=== PATIENT | female | born 1940 | race Asian ===

== ENCOUNTER → 2017-05-11 | Outpatient (CLI) | payer OTHER, MEDICAID ==
[~2017-05-11] MED LIST: ALEN70TA48 PO; ASPI-556 PO; ATOR40TA28 PO; CALC-613 PO; FERR-89 PO; FLUT16H NASAL; FURO40 PO; LETR2.5T6 PO; LOSA25TA21 PO; METO50 PO; OMEP20 PO; TICA90TA PO; VITAD1000 PO
== END | disposition home or self-care (01) ==
LOC: RADMN 16:43
PROVIDERS: ATTEND Internal Medicine Critical Care Medicine
DX: J98.11 Atelectasis (principal); I70.0 Atherosclerosis of aorta; J98.4 Other disorders of lung
CPT/HCPCS: 71020

== ENCOUNTER → 2017-06-06 | Outpatient (CLI) | payer OTHER, MEDICAID | END | disposition home or self-care (01) | LOC: RESP 09:16 | PROVIDERS: ATTEND Internal Medicine Critical Care Medicine | DX: J44.1 Chronic obstructive pulmonary disease with (acute) exacerbation (principal) | CPT/HCPCS: 94060; 94729 ==

== ENCOUNTER 2017-10-28 11:40 | Emergency (ER) | payer MEDICARE, MEDICAID ==
[~2017-10-28] VITALS: Ht 157.5 cm; Wt 66.8 kg
[2017-10-28] MEDS ORDERED: CloNIDine HCL 0.2 MG TABLET PO ONE (13:00)
[2017-10-28 13:08] LABS: BASOPHILS % (AUTO) 0.4 % (0.0-2.0); EOSINOPHILS % (AUTO) 1.9 % (1.0-6.0); HEMATOCRIT 36.5 % (36-46); HEMOGLOBIN 12.4 g/dL (12.0-16.0); LYMPHOCYTES # (AUTO) 1.1 K/uL (1.0-4.8); LYMPHOCYTES % (AUTO) 27.8 % (22.0-44.0); MEAN CORPUSCULAR HEMOGLOBIN 32.8 pg (26.0-34.0); MEAN CORPUSCULAR VOLUME 96 fL (80-100); MONOCYTES # (AUTO) 0.5 K/uL (0.1-1.0); MONOCYTES % (AUTO) 12.7 % (2.0-9.0); NEUTROPHILS # (AUTO) 2.2 K/uL (1.8-7.7); NEUTROPHILS % (AUTO) 57.2 % (40.0-70.0); PLATELET COUNT (AUTO) 74 K/uL (150-450); RED BLOOD CELL COUNT(AUTO) 3.79 MIL/uL (4.00-5.20); RED CELL DISTRIBUTION WIDTH 13.3 % (11.5-14.5)
[2017-10-28 14:20] LABS: ANION GAP 10 mmol/L (8-16); CALCIUM, TOTAL 9.2 mg/dL (8.8-10.5); CARBON DIOXIDE 28 mmol/L (22-29); CHLORIDE 101 mmol/L (98-107); CREATININE 0.86 mg/dL (0.60-1.30); GLOMERULAR FILTR. RATE CALC > 60 mL/min (>60); GLUCOSE,RANDOM 112 mg/dL (70-110); POTASSIUM 3.3 mmol/L (3.5-5.1); SODIUM SERUM 139 mmol/L (136-145); UREA NITROGEN, BLOOD 13 mg/dL (7-18)
[2017-10-28 14:20] LABS: APPEARANCE,URINE CLEAR (CLEAR); BILIRUBIN,URINE NEGATIVE (NEGATIVE); GLUCOSE, URINE (UA) NEGATIVE (NEGATIVE); KETONES,URINE NEGATIVE (NEGATIVE); LEUKOCYTE ESTERASE ,URINE NEGATIVE (NEGATIVE); NITRATE,URINE NEGATIVE (NEGATIVE); OCCULT BLOOD,URINE NEGATIVE (NEGATIVE); PROTEIN,URINE NEGATIVE (NEGATIVE); UROBILINOGEN,URINE 0.2 mg/dL (<=1.0)
[2017-10-28 14:26] LABS: ALANINE AMINOTRANSFERASE 41 U/L (12-78); ALBUMIN 3.6 g/dL (3.4-5.0); ALKALINE PHOSPHATASE 85 U/L (46-116); ASPARTATE AMINOTRANSFERASE 40 U/L (15-37); BILIRUBIN,TOTAL 0.7 mg/dL (0.1-1.0); LIPASE 175 U/L (73-393); TOTAL PROTEIN, SERUM 7.6 g/dL (6.4-8.2)
[2017-10-28 14:30] VITALS: BP 144/68
[2017-10-28] MEDS ORDERED: HYDROCODONE/ACETAMINOPHEN 5-325 MG TABLET PO ONE (14:30)
[2017-10-28 14:36] LABS: BACTERIA,URINE None Seen /HPF (None Seen); RBC,URINE 0-2 /HPF (0-2); SQUAMOUS EPITHELIAL CELL,UR Rare /LPF (None Seen); WBC,URINE 0-2 /HPF (0-5)
[2017-10-28 14:41] LABS: INFLUENZA TYPE A NEGATIVE FOR TYPE A (NEGATIVE); INFLUENZA TYPE B NEGATIVE FOR TYPE B (NEGATIVE)
[2017-10-28] MEDS ORDERED: LEVOFLOXACIN 250 MG TABLET PO ONE (14:45)
[2017-10-28] MEDS ORDERED: POTASSIUM CHLORIDE 20 MEQ ER TABLET PO ONE (14:45)
== END 2017-10-28 15:45 | disposition home or self-care (01) ==
LOC: EMS 11:43
DX: S20.211A Contusion of right front wall of thorax, initial encounter (principal); J18.9 Pneumonia, unspecified organism; M54.2 Cervicalgia; I10 Essential (primary) hypertension; Z79.82 Long term (current) use of aspirin; W06.XXXA Fall from bed, initial encounter; Y93.89 Activity, other specified; Y92.89 Other specified places as the place of occurrence of the external cause; Y99.8 Other external cause status
CPT/HCPCS: 71101; 74176; 87804; 99285

== ENCOUNTER → 2017-11-02 | Outpatient (CLI) | payer MEDICARE ==
[~2017-11-02] VITALS: Ht 157.5 cm; Wt 66.0 kg
[2017-11-02 13:48] VITALS: BP 145/75
== END | disposition home or self-care (01) ==
LOC: SRCNTR 13:30
PROVIDERS: ATTEND Internal Medicine Critical Care Medicine
DX: J96.01 Acute respiratory failure with hypoxia (principal); I11.0 Hypertensive heart disease with heart failure; I50.9 Heart failure, unspecified; I25.10 Atherosclerotic heart disease of native coronary artery without angina pectoris; E78.5 Hyperlipidemia, unspecified; D25.9 Leiomyoma of uterus, unspecified; J18.9 Pneumonia, unspecified organism; I25.2 Old myocardial infarction; Z79.811 Long term (current) use of aromatase inhibitors; Z79.82 Long term (current) use of aspirin; Z85.3 Personal history of malignant neoplasm of breast
CPT/HCPCS: G0463

== ENCOUNTER → 2018-02-19 | Outpatient (CLI) | payer MEDICARE ==
[~2018-02-19] VITALS: Ht 157.5 cm; Wt 70.0 kg
[2018-02-19 14:13] VITALS: BP 145/69
== END | disposition home or self-care (01) ==
LOC: SRCNTR 13:39
PROVIDERS: ATTEND Internal Medicine Critical Care Medicine
DX: I11.0 Hypertensive heart disease with heart failure (principal); I50.33 Acute on chronic diastolic (congestive) heart failure; J96.01 Acute respiratory failure with hypoxia; J18.9 Pneumonia, unspecified organism; I25.10 Atherosclerotic heart disease of native coronary artery without angina pectoris; E78.5 Hyperlipidemia, unspecified; Z85.3 Personal history of malignant neoplasm of breast
CPT/HCPCS: G0463

== ENCOUNTER → 2018-04-26 | Outpatient (CLI) | payer MEDICARE, MEDICAID ==
[~2018-04-26] MED LIST changes: +LOSA25TA16 PO; -LOSA25TA21 PO
== END | disposition home or self-care (01) ==
LOC: RADMN 08:36
PROVIDERS: ATTEND Internal Medicine Critical Care Medicine
DX: J43.9 Emphysema, unspecified (principal); I27.21 Secondary pulmonary arterial hypertension; N28.1 Cyst of kidney, acquired; K80.20 Calculus of gallbladder without cholecystitis without obstruction; I51.7 Cardiomegaly; I25.10 Atherosclerotic heart disease of native coronary artery without angina pectoris; I70.0 Atherosclerosis of aorta
CPT/HCPCS: 71250; 72192; 74150

== ENCOUNTER → 2018-06-01 | Outpatient (CLI) | payer MEDICARE ==
[~2018-06-01] VITALS: Ht 157.5 cm; Wt 70.5 kg
[2018-06-01 14:41] VITALS: BP 194/73
== END | disposition home or self-care (01) ==
LOC: SRCNTR 13:27
PROVIDERS: ATTEND Internal Medicine Critical Care Medicine
DX: J96.01 Acute respiratory failure with hypoxia (principal); J18.9 Pneumonia, unspecified organism; I11.0 Hypertensive heart disease with heart failure; I50.9 Heart failure, unspecified; I25.10 Atherosclerotic heart disease of native coronary artery without angina pectoris; E78.5 Hyperlipidemia, unspecified; I25.2 Old myocardial infarction; Z85.3 Personal history of malignant neoplasm of breast
CPT/HCPCS: G0463

== ENCOUNTER → 2019-06-25 | Outpatient (CLI) | payer MEDICARE, MEDICAID ==
[~2019-06-25] MED LIST changes: -ALEN70TA48 PO; +ATOR10TA84 PO; -ATOR40TA28 PO; -CALC-613 PO; +CAND8TAB10 PO; +CHOL100018 PO; -FLUT16H NASAL; -LOSA25TA16 PO; -VITAD1000 PO
== END | disposition home or self-care (01) ==
LOC: RADPV 08:05
PROVIDERS: ATTEND Internal Medicine Nephrology
DX: R05 Cough (principal); I51.7 Cardiomegaly; I70.0 Atherosclerosis of aorta; I10 Essential (primary) hypertension; E78.00 Pure hypercholesterolemia, unspecified; J44.9 Chronic obstructive pulmonary disease, unspecified; Z90.89 Acquired absence of other organs; Z85.3 Personal history of malignant neoplasm of breast

== ENCOUNTER 2020-10-17 16:48 | Inpatient (IN) | payer MEDICARE, MEDICAID ==
[~2020-10-17] VITALS: Ht 160 cm; Wt 80.0 kg
[~2020-10-17 16:48] MED LIST changes: -LETR2.5T6 PO; +LETR2.5T7 PO
[2020-10-17 19:12] LABS: BASOPHILS % (AUTO) 0.7 % (0.0-2.0); EOSINOPHILS % (AUTO) 2.4 % (1.0-6.0); HEMATOCRIT 34.2 % (36-46); HEMOGLOBIN 11.2 g/dL (12.0-16.0); LYMPHOCYTES # (AUTO) 0.7 K/uL (1.0-4.8); MEAN CORPUSCULAR HEMOGLOBIN 32.4 pg (26.0-34.0); MEAN CORPUSCULAR HGB CONC 32.7 G/dL (31.0-37.0); MEAN CORPUSCULAR VOLUME 99 fL (80-100); MONOCYTES # (AUTO) 0.5 K/uL (0.1-1.0); MONOCYTES % (AUTO) 15.7 % (2.0-9.0); NEUTROPHILS # (AUTO) 2.2 K/uL (1.8-7.7); NEUTROPHILS % (AUTO) 62.2 % (40.0-70.0); RED BLOOD CELL COUNT(AUTO) 3.46 MIL/uL (4.00-5.20); RED CELL DISTRIBUTION WIDTH 15.5 % (11.5-14.5)
[2020-10-17] MEDS ORDERED: ACETAMINOPHEN 325 MG TABLET PO PRN ×2 (19:15→19:30)
[2020-10-17] MEDS ORDERED: ONDANSETRON HCL 4 MG/2 ML VIAL IVP PRN ×2 (19:15→19:30)
[2020-10-17] MEDS ORDERED: ASPIRIN 325 MG TABLET PO ONE (19:15)
[2020-10-17] MEDS ORDERED: FUROSEMIDE 40 MG/4 ML VIAL IVP ONE (19:15)
[2020-10-17] MEDS ORDERED: 0.9% SODIUM CHLORIDE 10 ML SYRINGE IVP PRN (19:15)
[2020-10-17 19:17] LABS: CALCIUM, TOTAL 9.4 mg/dL (8.8-10.5); CREATININE 2.04 mg/dL (0.60-1.30); POTASSIUM 4.2 mmol/L (3.5-5.1)
[2020-10-17 19:23] LABS: ALBUMIN 3.8 g/dL (3.4-5.0); BILIRUBIN,TOTAL 0.7 mg/dL (0.1-1.0); MAGNESIUM 2.3 mg/dL (1.80-2.40)
[2020-10-17] MEDS ORDERED: MAGNESIUM HYDROXIDE SUSPENSION 30 ML UDCUP PO PRN (19:30)
[2020-10-17] MEDS ORDERED: MORPHINE SULFATE 2 MG/ML SYRINGE IVP PRN (19:30)
[2020-10-17] MEDS ORDERED: BISACODYL 10 MG RECTAL RECTAL SUPPOSITORY PR PRN (19:30)
[2020-10-17] MEDS ORDERED: HYDROCODONE/ACETAMINOPHEN 5-325 MG TABLET PO PRN (19:30)
[2020-10-17] MEDS ORDERED: ZOLPIDEM TARTRATE 5 MG TABLET PO PRN (19:30)
[2020-10-17 19:31] LABS: PLATELET COUNT (AUTO) 50 K/uL (150-450)
[2020-10-17] MEDS: FUROSEMIDE 40 MG/4 ML VIAL IVP SCH (21:00)
[2020-10-17] MEDS: DOCUSATE SODIUM 100 MG CAPSULE PO SCH (21:11)
[2020-10-17] MEDS: METOPROLOL TARTRATE 50 MG TABLET PO SCH (21:11)
[2020-10-17 21:25] LABS: COVID AG,FIA SOURCE NASOPHARYNGEAL
[2020-10-17 23:04] VITALS: BP 170/92
[2020-10-17] MEDS ORDERED: INFLUENZA VIRUS VACCINE QVS 2020-21 (6MO+)/PF 60 MCG/0.5 ML SYRINGE IM ONE (23:45)
[2020-10-18] VITALS: BP 130/67
[2020-10-18 04:24] VITALS: BP 141/67
[2020-10-18 07:28] VITALS: BP 138/65
[2020-10-18] MEDS: LETROZOLE 2.5 MG TABLET PO SCH (08:55)
[2020-10-18] MEDS: CHOLECALCIFEROL (VIT D3) 1,000 UNITS [25 MCG] TABLET PO SCH (08:56)
[2020-10-18] MEDS: PANTOPRAZOLE SODIUM 40 MG DR TABLET PO SCH (08:56)
[2020-10-18] MEDS: DOCUSATE SODIUM 100 MG CAPSULE PO SCH ×2 (08:56→20:07)
[2020-10-18] MEDS: METOPROLOL TARTRATE 50 MG TABLET PO SCH ×2 (08:56→20:08)
[2020-10-18] MEDS: FUROSEMIDE 40 MG/4 ML VIAL IVP SCH ×2 (08:56→20:07)
[2020-10-18] MEDS: FERROUS SULFATE 325 MG EC TABLET PO SCH ×2 (08:57→17:53)
[2020-10-18] MEDS: ASPIRIN 81 MG DR TABLET PO SCH (08:57)
[2020-10-18] MEDS: TICAGRELOR 90 MG TABLET PO SCH (08:57)
[2020-10-18 11:28] VITALS: BP 117/59
[2020-10-18 15:28] VITALS: BP 126/54
[2020-10-18 20:15] VITALS: BP 133/63
[2020-10-19] VITALS (7 sets, daily range): BP systolic 132–156; BP diastolic 57–73
[2020-10-19 07:49] LABS: INR 1.1 (0.9-1.1); PROTHROMBIN TIME 11.6 SEC (9.4-11.6)
[2020-10-19] MEDS: METOPROLOL TARTRATE 50 MG TABLET PO SCH ×2 (07:53→20:21)
[2020-10-19] MEDS: FERROUS SULFATE 325 MG EC TABLET PO SCH ×2 (07:54→17:34)
[2020-10-19] MEDS: CHOLECALCIFEROL (VIT D3) 1,000 UNITS [25 MCG] TABLET PO SCH (07:54)
[2020-10-19] MEDS: LETROZOLE 2.5 MG TABLET PO SCH (07:54)
[2020-10-19] MEDS: PANTOPRAZOLE SODIUM 40 MG DR TABLET PO SCH (07:54)
[2020-10-19] MEDS: DOCUSATE SODIUM 100 MG CAPSULE PO SCH ×2 (07:54→20:19)
[2020-10-19 09:14] LABS: CALCIUM, TOTAL 9.5 mg/dL (8.8-10.5); CREATININE 1.66 mg/dL (0.60-1.30); POTASSIUM 3.9 mmol/L (3.5-5.1)
[2020-10-19 09:17] LABS: MAGNESIUM 2.4 mg/dL (1.80-2.40); PHOSPHORUS 3.4 mg/dL (2.5-4.9)
[2020-10-19 10:31] LABS: APPEARANCE,URINE CLEAR (CLEAR); BILIRUBIN,URINE NEGATIVE (NEGATIVE); GLUCOSE, URINE (UA) NEGATIVE (NEGATIVE); KETONES,URINE NEGATIVE (NEGATIVE); LEUKOCYTE ESTERASE ,URINE TRACE (NEGATIVE); NITRATE,URINE NEGATIVE (NEGATIVE); OCCULT BLOOD,URINE NEGATIVE (NEGATIVE); PH,URINE 5.5 (5.0-8.0); PROTEIN,URINE TRACE (NEGATIVE); UROBILINOGEN,URINE 0.2 mg/dL (<=1.0)
[2020-10-19 10:37] LABS: CREATININE,URINE RANDOM 114.4 mg/dL (30.0-125.0); PROTEIN,URINE RANDOM 36 mg/dL (0-11.9); SODIUM,URINE RANDOM 13 mmol/l (20-110); UREA NITROGEN,URINE RANDOM 804 mg/dL (350-1000)
[2020-10-19 10:46] LABS: BACTERIA,URINE None Seen /HPF (None Seen); RBC,URINE None Seen /HPF (0-2); SQUAMOUS EPITHELIAL CELL,UR Few /LPF (None Seen); WBC,URINE 0-2 /HPF (0-5)
[2020-10-19] MEDS: TICAGRELOR 90 MG TABLET PO SCH (13:33)
[2020-10-19] MEDS: FUROSEMIDE 40 MG/4 ML VIAL IVP SCH ×2 (13:33→20:19)
[2020-10-19] MEDS: ASPIRIN 81 MG DR TABLET PO SCH (13:33)
[2020-10-19] MEDS: ATORVASTATIN CALCIUM 20 MG TABLET PO SCH (18:09)
[2020-10-20] VITALS (11 sets, daily range): BP systolic 113–168; BP diastolic 52–82
[2020-10-20 06:00] LABS: BASOPHILS % (AUTO) 0.9 % (0.0-2.0); EOSINOPHILS % (AUTO) 2.2 % (1.0-6.0); HEMATOCRIT 32.9 % (36-46); HEMOGLOBIN 10.9 g/dL (12.0-16.0); LYMPHOCYTES # (AUTO) 0.7 K/uL (1.0-4.8); LYMPHOCYTES % (AUTO) 25.4 % (22.0-44.0); MEAN CORPUSCULAR HEMOGLOBIN 32.4 pg (26.0-34.0); MEAN CORPUSCULAR VOLUME 98 fL (80-100); MONOCYTES # (AUTO) 0.4 K/uL (0.1-1.0); MONOCYTES % (AUTO) 14.9 % (2.0-9.0); NEUTROPHILS # (AUTO) 1.6 K/uL (1.8-7.7); NEUTROPHILS % (AUTO) 56.6 % (40.0-70.0); PLATELET COUNT (AUTO) 42 K/uL (150-450); RED BLOOD CELL COUNT(AUTO) 3.35 MIL/uL (4.00-5.20); RED CELL DISTRIBUTION WIDTH 15.2 % (11.5-14.5)
[2020-10-20 06:13] LABS: ALBUMIN 3.3 g/dL (3.4-5.0); BILIRUBIN,TOTAL 0.8 mg/dL (0.1-1.0); CALCIUM, TOTAL 9.5 mg/dL (8.8-10.5); CREATININE 1.62 mg/dL (0.60-1.30); MAGNESIUM 2.3 mg/dL (1.80-2.40); PHOSPHORUS 3.1 mg/dL (2.5-4.9); POTASSIUM 3.4 mmol/L (3.5-5.1); TOTAL PROTEIN, SERUM 7.4 g/dL (6.4-8.2)
[2020-10-20] MEDS: PANTOPRAZOLE SODIUM 40 MG DR TABLET PO SCH (07:58)
[2020-10-20] MEDS: ATORVASTATIN CALCIUM 20 MG TABLET PO SCH (07:58)
[2020-10-20] MEDS: LETROZOLE 2.5 MG TABLET PO SCH (07:59)
[2020-10-20] MEDS: FUROSEMIDE 40 MG/4 ML VIAL IVP SCH ×2 (07:59→21:04)
[2020-10-20] MEDS: FERROUS SULFATE 325 MG EC TABLET PO SCH ×2 (07:59→17:19)
[2020-10-20] MEDS: DOCUSATE SODIUM 100 MG CAPSULE PO SCH ×2 (07:59→21:05)
[2020-10-20] MEDS: CHOLECALCIFEROL (VIT D3) 1,000 UNITS [25 MCG] TABLET PO SCH (07:59)
[2020-10-20] MEDS: ASPIRIN 81 MG DR TABLET PO SCH ×2 (07:59→08:04)
[2020-10-20] MEDS: METOPROLOL TARTRATE 50 MG TABLET PO SCH ×2 (08:01→21:05)
[2020-10-20] MEDS ORDERED: POTASSIUM CHLORIDE 20 MEQ ER TABLET PO ONE (10:45)
[2020-10-20] MEDS ORDERED: SODIUM CHLORIDE 0.9% 1,000 ML ONE (12:33)
[2020-10-21] VITALS (10 sets, daily range): BP systolic 108–153; BP diastolic 50–70
[2020-10-21 05:41] LABS: BASOPHILS % (AUTO) 0.6 % (0.0-2.0); EOSINOPHILS % (AUTO) 2.7 % (1.0-6.0); HEMATOCRIT 30.9 % (36-46); HEMOGLOBIN 10.3 g/dL (12.0-16.0); LYMPHOCYTES # (AUTO) 0.7 K/uL (1.0-4.8); LYMPHOCYTES % (AUTO) 27.5 % (22.0-44.0); MEAN CORPUSCULAR HEMOGLOBIN 32.6 pg (26.0-34.0); MEAN CORPUSCULAR HGB CONC 33.3 G/dL (31.0-37.0); MEAN CORPUSCULAR VOLUME 98 fL (80-100); MONOCYTES # (AUTO) 0.5 K/uL (0.1-1.0); MONOCYTES % (AUTO) 17.5 % (2.0-9.0); NEUTROPHILS # (AUTO) 1.3 K/uL (1.8-7.7); NEUTROPHILS % (AUTO) 51.7 % (40.0-70.0); PLATELET COUNT (AUTO) 48 K/uL (150-450); RED BLOOD CELL COUNT(AUTO) 3.16 MIL/uL (4.00-5.20); RED CELL DISTRIBUTION WIDTH 15.7 % (11.5-14.5)
[2020-10-21 05:50] LABS: CALCIUM, TOTAL 9.1 mg/dL (8.8-10.5); CREATININE 1.49 mg/dL (0.60-1.30); POTASSIUM 3.1 mmol/L (3.5-5.1)
[2020-10-21] MEDS: METOPROLOL TARTRATE 50 MG TABLET PO SCH ×3 (09:00→20:48)
[2020-10-21] MEDS: DOCUSATE SODIUM 100 MG CAPSULE PO SCH ×2 (09:03→20:48)
[2020-10-21] MEDS: ATORVASTATIN CALCIUM 20 MG TABLET PO SCH (09:03)
[2020-10-21] MEDS: CHOLECALCIFEROL (VIT D3) 1,000 UNITS [25 MCG] TABLET PO SCH (09:03)
[2020-10-21] MEDS: ASPIRIN 81 MG DR TABLET PO SCH (09:03)
[2020-10-21] MEDS: PANTOPRAZOLE SODIUM 40 MG DR TABLET PO SCH (09:03)
[2020-10-21] MEDS: FUROSEMIDE 40 MG/4 ML VIAL IVP SCH ×2 (09:03→20:48)
[2020-10-21] MEDS: LETROZOLE 2.5 MG TABLET PO SCH (09:04)
[2020-10-21] MEDS: FERROUS SULFATE 325 MG EC TABLET PO SCH ×2 (09:04→17:58)
[2020-10-21] MEDS ORDERED: POTASSIUM CHLORIDE 20 MEQ ER TABLET PO ONE (09:30)
[2020-10-21] MEDS ORDERED: SODIUM CHLORIDE 0.9% 250 ML IV ONE (11:59)
[2020-10-21 15:33] LABS: SPECIMENTYPE,BODY FLUID THORACENTESIS
[2020-10-21 16:53] LABS: APPEARANCE,UNSPUN,BODY FLUID CLOUDY (CLEAR)
[2020-10-21 16:54] LABS: APPEARANCE,SPUN,BODY FLUID CLEAR (CLEAR); BASOPHILS,BODY FLUID 0 %; COLOR,BODY FLUID ORANGE (LT YELLOW); EOSINOPHILS,BF (ANAL) 0 %; LYMPHOCYTES,BODY FLUID 78 %; MONOCYTES,BODY FLUID 0 %; NEUTROPHILS,BODY FLUID 7 %; TOTAL VOLUME,BODY FLUID 650 mL; WBC, BODY FLUID 62 /cu. mm.
[2020-10-21 16:55] LABS: OTHER CELLS,BODY FLUID 15; PH, BODY FLUID 8
[2020-10-22] VITALS (7 sets, daily range): BP systolic 113–159; BP diastolic 49–76
[2020-10-22 05:46] LABS: BASOPHILS % (AUTO) 0.6 % (0.0-2.0); EOSINOPHILS % (AUTO) 2.7 % (1.0-6.0); HEMATOCRIT 28.4 % (36-46); HEMOGLOBIN 9.6 g/dL (12.0-16.0); LYMPHOCYTES # (AUTO) 0.8 K/uL (1.0-4.8); LYMPHOCYTES % (AUTO) 22.3 % (22.0-44.0); MEAN CORPUSCULAR HGB CONC 33.6 G/dL (31.0-37.0); MEAN CORPUSCULAR VOLUME 98 fL (80-100); MONOCYTES # (AUTO) 0.5 K/uL (0.1-1.0); MONOCYTES % (AUTO) 15.5 % (2.0-9.0); NEUTROPHILS % (AUTO) 58.9 % (40.0-70.0); PLATELET COUNT (AUTO) 46 K/uL (150-450); RED CELL DISTRIBUTION WIDTH 15.4 % (11.5-14.5)
[2020-10-22 06:02] LABS: CALCIUM, TOTAL 9.1 mg/dL (8.8-10.5); CREATININE 1.46 mg/dL (0.60-1.30); POTASSIUM 3.2 mmol/L (3.5-5.1)
[2020-10-22 06:13] LABS: MAGNESIUM 1.6 mg/dL (1.80-2.40); PHOSPHORUS 2.7 mg/dL (2.5-4.9)
[2020-10-22] MEDS: DOCUSATE SODIUM 100 MG CAPSULE PO SCH ×2 (08:03→20:28)
[2020-10-22] MEDS: FUROSEMIDE 40 MG/4 ML VIAL IVP SCH ×2 (08:04→20:29)
[2020-10-22] MEDS: ASPIRIN 81 MG DR TABLET PO SCH (08:04)
[2020-10-22] MEDS: FERROUS SULFATE 325 MG EC TABLET PO SCH ×2 (08:04→17:56)
[2020-10-22] MEDS: ATORVASTATIN CALCIUM 20 MG TABLET PO SCH (08:05)
[2020-10-22] MEDS: CHOLECALCIFEROL (VIT D3) 1,000 UNITS [25 MCG] TABLET PO SCH (08:05)
[2020-10-22] MEDS: PANTOPRAZOLE SODIUM 40 MG DR TABLET PO SCH (08:05)
[2020-10-22] MEDS: METOPROLOL TARTRATE 50 MG TABLET PO SCH ×2 (09:00→20:29)
[2020-10-22] MEDS: LETROZOLE 2.5 MG TABLET PO SCH (10:13)
[2020-10-22] MEDS ORDERED: POTASSIUM CHLORIDE 10 MEQ ER TABLET PO ONE (11:30)
[2020-10-22] MEDS: TICAGRELOR 90 MG TABLET PO SCH (12:29)
[2020-10-23 04:00] VITALS: BP 122/71
[2020-10-23 05:46] LABS: BASOPHILS % (AUTO) 0.6 % (0.0-2.0); HEMATOCRIT 29.9 % (36-46); HEMOGLOBIN 9.8 g/dL (12.0-16.0); LYMPHOCYTES # (AUTO) 0.8 K/uL (1.0-4.8); MEAN CORPUSCULAR HEMOGLOBIN 32.4 pg (26.0-34.0); MEAN CORPUSCULAR HGB CONC 32.8 G/dL (31.0-37.0); MEAN CORPUSCULAR VOLUME 99 fL (80-100); MONOCYTES # (AUTO) 0.6 K/uL (0.1-1.0); MONOCYTES % (AUTO) 16.5 % (2.0-9.0); NEUTROPHILS % (AUTO) 56.9 % (40.0-70.0); PLATELET COUNT (AUTO) 51 K/uL (150-450); RED BLOOD CELL COUNT(AUTO) 3.04 MIL/uL (4.00-5.20); RED CELL DISTRIBUTION WIDTH 15.4 % (11.5-14.5)
[2020-10-23 06:39] LABS: ALBUMIN 3.3 g/dL (3.4-5.0); BILIRUBIN,TOTAL 1.1 mg/dL (0.1-1.0); CREATININE 1.3 mg/dL (0.60-1.30); POTASSIUM 3.6 mmol/L (3.5-5.1); TOTAL PROTEIN, SERUM 7.1 g/dL (6.4-8.2)
[2020-10-23 07:18] VITALS: BP 136/64
[2020-10-23] MEDS: ASPIRIN 81 MG DR TABLET PO SCH (07:56)
[2020-10-23] MEDS: PANTOPRAZOLE SODIUM 40 MG DR TABLET PO SCH (07:57)
[2020-10-23] MEDS: METOPROLOL TARTRATE 50 MG TABLET PO SCH (07:57)
[2020-10-23] MEDS: ATORVASTATIN CALCIUM 20 MG TABLET PO SCH (07:57)
[2020-10-23] MEDS: DOCUSATE SODIUM 100 MG CAPSULE PO SCH (07:57)
[2020-10-23] MEDS: TICAGRELOR 90 MG TABLET PO SCH (07:57)
[2020-10-23] MEDS: CHOLECALCIFEROL (VIT D3) 1,000 UNITS [25 MCG] TABLET PO SCH (07:57)
[2020-10-23] MEDS: FERROUS SULFATE 325 MG EC TABLET PO SCH ×2 (07:57→18:00)
[2020-10-23] MEDS: FUROSEMIDE 40 MG/4 ML VIAL IVP SCH (07:58)
[2020-10-23] MEDS: LETROZOLE 2.5 MG TABLET PO SCH (08:04)
[2020-10-23 11:15] VITALS: BP 148/68
[2020-10-23] MEDS ORDERED: FURO40 PO (12:28)
[2020-10-23] MEDS ORDERED: ATOR20TA86 PO (12:37)
[2020-10-23] MEDS ORDERED: BISA10SU11 PR (12:39)
[2020-10-23] MEDS ORDERED: ACET-2247 PO (12:39)
[2020-10-23] MEDS ORDERED: HYDR-4723 PO (12:40)
[2020-10-23] MEDS ORDERED: MOM30 PO (12:44)
[2020-10-23] MEDS ORDERED: MORP1AMP6 IVP (12:46)
[2020-10-23 16:27] VITALS: BP 145/70
== END 2020-10-23 20:23 | DRG 291 ==
LOC: EMS 17:22 → 5S 21:49
PROVIDERS: ADMIT Internal Medicine; ATTEND Internal Medicine
PROC: 30233R1 Transfusion of Nonautologous Platelets into Peripheral Vein, Percutaneous Approach (ICD-10-PCS; 2020-10-20)
PROC: 30233N1 Transfusion of Nonautologous Red Blood Cells into Peripheral Vein, Percutaneous Approach (ICD-10-PCS; principal; 2020-10-21)
PROC: 0W993ZZ Drainage of Right Pleural Cavity, Percutaneous Approach (ICD-10-PCS; 2020-10-21)
DX: I13.0 Hypertensive heart and chronic kidney disease with heart failure and stage 1 through stage 4 chronic kidney disease, or unspecified chronic kidney disease (principal); I50.33 Acute on chronic diastolic (congestive) heart failure; N17.9 Acute kidney failure, unspecified; D61.818 Other pancytopenia; J91.8 Pleural effusion in other conditions classified elsewhere; I25.10 Atherosclerotic heart disease of native coronary artery without angina pectoris; J44.9 Chronic obstructive pulmonary disease, unspecified; K21.9 Gastro-esophageal reflux disease without esophagitis; E66.9 Obesity, unspecified; E11.22 Type 2 diabetes mellitus with diabetic chronic kidney disease; N18.9 Chronic kidney disease, unspecified; I27.20 Pulmonary hypertension, unspecified; Z20.822 Contact with and (suspected) exposure to COVID-19; I25.2 Old myocardial infarction; E87.6 Hypokalemia; Z85.3 Personal history of malignant neoplasm of breast; E78.5 Hyperlipidemia, unspecified; I25.5 Ischemic cardiomyopathy; D69.6 Thrombocytopenia, unspecified; M79.89 Other specified soft tissue disorders; Z68.31 Body mass index [BMI] 31.0-31.9, adult; Z79.811 Long term (current) use of aromatase inhibitors; Z86.74 Personal history of sudden cardiac arrest; Z90.12 Acquired absence of left breast and nipple; Z79.82 Long term (current) use of aspirin; Z79.899 Other long term (current) drug therapy; Z87.01 Personal history of pneumonia (recurrent)
CPT/HCPCS: 32555; 71250; 76770; 76942; 82465; 82570; 82945; 83615; 83735; 83986; 84100; 84156; 84157; 84300; 84540; 86850; 86900; 86901; 87015; 87070; 87101; 87205; 87206; 87426; 89051; 93005; 93306; 93971; 97116; 97162; 97166; 97530; 97535; 99285; J1940; J7030; J7050; P9035; 36415-L1; 36415-TC; 71045-TC

== ENCOUNTER 2020-10-30 11:55 | Inpatient (IN) | payer MEDICARE, MEDICAID ==
[~2020-10-30] VITALS: Ht 160 cm; Wt 74.5 kg
[~2020-10-30 11:55] MED LIST changes: +ACET-2247 PO; -ATOR10TA84 PO; +ATOR20TA86 PO; +BISA10SU11 PR; -CAND8TAB10 PO; +HYDR-4723 PO; +MOM30 PO
[2020-10-30 12:54] LABS: COVID AG,FIA SOURCE NASOPHARYNGEAL
[2020-10-30 12:56] LABS: BASOPHILS % (AUTO) 0.7 % (0.0-2.0); EOSINOPHILS % (AUTO) 3.2 % (1.0-6.0); HEMOGLOBIN 11.1 g/dL (12.0-16.0); LYMPHOCYTES # (AUTO) 0.6 K/uL (1.0-4.8); LYMPHOCYTES % (AUTO) 12.9 % (22.0-44.0); MEAN CORPUSCULAR HEMOGLOBIN 32.4 pg (26.0-34.0); MEAN CORPUSCULAR HGB CONC 32.8 G/dL (31.0-37.0); MEAN CORPUSCULAR VOLUME 99 fL (80-100); MONOCYTES # (AUTO) 0.8 K/uL (0.1-1.0); MONOCYTES % (AUTO) 17.3 % (2.0-9.0); NEUTROPHILS % (AUTO) 65.9 % (40.0-70.0); RED BLOOD CELL COUNT(AUTO) 3.44 MIL/uL (4.00-5.20); RED CELL DISTRIBUTION WIDTH 15.7 % (11.5-14.5)
[2020-10-30 13:05] LABS: CALCIUM, TOTAL 9.3 mg/dL (8.8-10.5); CREATININE 1.31 mg/dL (0.60-1.30); POTASSIUM 3.3 mmol/L (3.5-5.1)
[2020-10-30 13:11] LABS: INR 1.1 (0.9-1.1); PROTHROMBIN TIME 11.9 SEC (9.4-11.6)
[2020-10-30 13:17] LABS: LACTIC ACID 1.5 mmol/L (0.4-2.0)
[2020-10-30 13:19] LABS: ALBUMIN 3.4 g/dL (3.4-5.0); BILIRUBIN,TOTAL 0.8 mg/dL (0.1-1.0); TOTAL PROTEIN, SERUM 7.6 g/dL (6.4-8.2)
[2020-10-30 13:31] LABS: PLATELET COUNT (AUTO) 62 K/uL (150-450)
[2020-10-30 15:23] LABS: APPEARANCE,URINE CLEAR (CLEAR); BILIRUBIN,URINE NEGATIVE (NEGATIVE); GLUCOSE, URINE (UA) NEGATIVE (NEGATIVE); KETONES,URINE NEGATIVE (NEGATIVE); LEUKOCYTE ESTERASE ,URINE NEGATIVE (NEGATIVE); NITRATE,URINE NEGATIVE (NEGATIVE); OCCULT BLOOD,URINE NEGATIVE (NEGATIVE); PROTEIN,URINE NEGATIVE (NEGATIVE); UROBILINOGEN,URINE 0.2 mg/dL (<=1.0)
[2020-10-30] MEDS ORDERED: BISACODYL 10 MG RECTAL RECTAL SUPPOSITORY PR PRN (16:15)
[2020-10-30] MEDS ORDERED: ZOLPIDEM TARTRATE 5 MG TABLET PO PRN (16:15)
[2020-10-30] MEDS ORDERED: ONDANSETRON HCL 4 MG/2 ML VIAL IVP PRN (16:15)
[2020-10-30] MEDS ORDERED: MORPHINE SULFATE 2 MG/ML SYRINGE IVP PRN (16:15)
[2020-10-30] MEDS ORDERED: MAGNESIUM HYDROXIDE SUSPENSION 30 ML UDCUP PO PRN (16:15)
[2020-10-30] MEDS ORDERED: HYDROCODONE/ACETAMINOPHEN 5-325 MG TABLET PO PRN (16:15)
[2020-10-30 16:55] LABS: BACTERIA,URINE None Seen /HPF (None Seen); RBC,URINE None Seen /HPF (0-2); SQUAMOUS EPITHELIAL CELL,UR None Seen /LPF (None Seen); WBC,URINE 0-2 /HPF (0-5)
[2020-10-30] MEDS: DOCUSATE SODIUM 100 MG CAPSULE PO SCH (19:20)
[2020-10-30] MEDS: METOPROLOL TARTRATE 50 MG TABLET PO SCH (19:20)
[2020-10-30 20:03] VITALS: BP 166/94
[2020-10-30] MEDS: FUROSEMIDE 40 MG TABLET PO SCH (20:33)
[2020-10-30] MEDS: HEPARIN SODIUM,PORCINE 5,000 UNITS/ML VIAL SQ SCH (23:01)
[2020-10-30 23:46] VITALS: BP 120/51
[2020-10-31 04:47] VITALS: BP 140/65
[2020-10-31 08:00] VITALS: BP 137/53
[2020-10-31] MEDS: HEPARIN SODIUM,PORCINE 5,000 UNITS/ML VIAL SQ SCH ×3 (08:00→23:10)
[2020-10-31] MEDS: ASPIRIN 81 MG DR TABLET PO SCH (08:41)
[2020-10-31] MEDS: FERROUS SULFATE 325 MG EC TABLET PO SCH ×2 (08:41→17:25)
[2020-10-31] MEDS: CHOLECALCIFEROL (VIT D3) 1,000 UNITS [25 MCG] TABLET PO SCH (08:41)
[2020-10-31] MEDS: ATORVASTATIN CALCIUM 20 MG TABLET PO SCH (08:41)
[2020-10-31] MEDS: METOPROLOL TARTRATE 50 MG TABLET PO SCH ×2 (08:41→19:42)
[2020-10-31] MEDS: PANTOPRAZOLE SODIUM 40 MG DR TABLET PO SCH (08:42)
[2020-10-31] MEDS: FUROSEMIDE 40 MG TABLET PO SCH ×2 (08:42→19:42)
[2020-10-31] MEDS: OMEPRAZOLE 20 MG CAPSULE PO SCH (08:42)
[2020-10-31] MEDS: LETROZOLE 2.5 MG TABLET PO SCH (08:44)
[2020-10-31] MEDS: DOCUSATE SODIUM 100 MG CAPSULE PO SCH ×2 (08:44→19:42)
[2020-10-31 11:03] VITALS: BP 130/64
[2020-10-31 15:53] VITALS: BP 143/66
[2020-10-31 19:36] VITALS: BP 144/75
[2020-10-31] MEDS: FUROSEMIDE 40 MG/4 ML VIAL IVP SCH (21:23)
[2020-11-01] VITALS (7 sets, daily range): BP systolic 104–150; BP diastolic 51–70
[2020-11-01 06:37] LABS: CALCIUM, TOTAL 9.1 mg/dL (8.8-10.5); CREATININE 1.12 mg/dL (0.60-1.30); POTASSIUM 3.2 mmol/L (3.5-5.1)
[2020-11-01 07:55] LABS: BASOPHILS % (AUTO) 0.4 % (0.0-2.0); EOSINOPHILS % (AUTO) 2.3 % (1.0-6.0); HEMATOCRIT 31.8 % (36-46); HEMOGLOBIN 10.5 g/dL (12.0-16.0); LYMPHOCYTES # (AUTO) 0.7 K/uL (1.0-4.8); LYMPHOCYTES % (AUTO) 14.8 % (22.0-44.0); MEAN CORPUSCULAR HEMOGLOBIN 32.6 pg (26.0-34.0); MEAN CORPUSCULAR HGB CONC 32.9 G/dL (31.0-37.0); MEAN CORPUSCULAR VOLUME 99 fL (80-100); MONOCYTES % (AUTO) 20.3 % (2.0-9.0); NEUTROPHILS % (AUTO) 62.2 % (40.0-70.0); PLATELET COUNT (AUTO) 50 K/uL (150-450); RED BLOOD CELL COUNT(AUTO) 3.21 MIL/uL (4.00-5.20); RED CELL DISTRIBUTION WIDTH 15.4 % (11.5-14.5)
[2020-11-01] MEDS: HEPARIN SODIUM,PORCINE 5,000 UNITS/ML VIAL SQ SCH ×3 (08:00→23:50)
[2020-11-01] MEDS: ASPIRIN 81 MG DR TABLET PO SCH (09:00)
[2020-11-01] MEDS: ATORVASTATIN CALCIUM 20 MG TABLET PO SCH (09:25)
[2020-11-01] MEDS: PANTOPRAZOLE SODIUM 40 MG DR TABLET PO SCH (09:25)
[2020-11-01] MEDS: FUROSEMIDE 40 MG/4 ML VIAL IVP SCH ×3 (09:25→23:52)
[2020-11-01] MEDS: OMEPRAZOLE 20 MG CAPSULE PO SCH (09:25)
[2020-11-01] MEDS: FERROUS SULFATE 325 MG EC TABLET PO SCH ×2 (09:25→17:12)
[2020-11-01] MEDS: METOPROLOL TARTRATE 50 MG TABLET PO SCH ×2 (09:26→19:33)
[2020-11-01] MEDS: LETROZOLE 2.5 MG TABLET PO SCH (09:26)
[2020-11-01] MEDS: CHOLECALCIFEROL (VIT D3) 1,000 UNITS [25 MCG] TABLET PO SCH (09:26)
[2020-11-01] MEDS: DOCUSATE SODIUM 100 MG CAPSULE PO SCH ×2 (09:26→19:33)
[2020-11-01] MEDS: ACETAMINOPHEN 325 MG TABLET PO PRN ×2 (10:49→16:20)
[2020-11-01] MEDS ORDERED: POTASSIUM CHLORIDE 20 MEQ ER TABLET PO ONE (11:00)
[2020-11-02] VITALS (12 sets, daily range): BP systolic 92–160; BP diastolic 50–89
[2020-11-02 07:19] LABS: BASOPHILS % (AUTO) 0.5 % (0.0-2.0); EOSINOPHILS % (AUTO) 1.8 % (1.0-6.0); HEMATOCRIT 31.2 % (36-46); HEMOGLOBIN 10.3 g/dL (12.0-16.0); LYMPHOCYTES # (AUTO) 0.6 K/uL (1.0-4.8); LYMPHOCYTES % (AUTO) 11.8 % (22.0-44.0); MEAN CORPUSCULAR HEMOGLOBIN 32.7 pg (26.0-34.0); MEAN CORPUSCULAR HGB CONC 33.1 G/dL (31.0-37.0); MEAN CORPUSCULAR VOLUME 99 fL (80-100); MONOCYTES # (AUTO) 0.9 K/uL (0.1-1.0); MONOCYTES % (AUTO) 17.2 % (2.0-9.0); NEUTROPHILS # (AUTO) 3.6 K/uL (1.8-7.7); NEUTROPHILS % (AUTO) 68.7 % (40.0-70.0); PLATELET COUNT (AUTO) 45 K/uL (150-450); RED BLOOD CELL COUNT(AUTO) 3.16 MIL/uL (4.00-5.20); RED CELL DISTRIBUTION WIDTH 15.2 % (11.5-14.5)
[2020-11-02 07:32] LABS: CALCIUM, TOTAL 9.1 mg/dL (8.8-10.5); CREATININE 1.15 mg/dL (0.60-1.30); POTASSIUM 3.6 mmol/L (3.5-5.1)
[2020-11-02] MEDS: HEPARIN SODIUM,PORCINE 5,000 UNITS/ML VIAL SQ SCH ×2 (08:00→16:00)
[2020-11-02] MEDS: ASPIRIN 81 MG DR TABLET PO SCH (09:00)
[2020-11-02] MEDS: LETROZOLE 2.5 MG TABLET PO SCH (09:00)
[2020-11-02] MEDS: FERROUS SULFATE 325 MG EC TABLET PO SCH ×2 (09:11→18:04)
[2020-11-02] MEDS: METOPROLOL TARTRATE 50 MG TABLET PO SCH ×2 (09:11→20:35)
[2020-11-02] MEDS: ATORVASTATIN CALCIUM 20 MG TABLET PO SCH (09:11)
[2020-11-02] MEDS: OMEPRAZOLE 20 MG CAPSULE PO SCH (09:11)
[2020-11-02] MEDS: DOCUSATE SODIUM 100 MG CAPSULE PO SCH ×2 (09:11→20:38)
[2020-11-02] MEDS: FUROSEMIDE 40 MG/4 ML VIAL IVP SCH ×2 (09:12→20:34)
[2020-11-02] MEDS: ACETAMINOPHEN 325 MG TABLET PO PRN ×2 (09:14→14:48)
[2020-11-02] MEDS: CHOLECALCIFEROL (VIT D3) 1,000 UNITS [25 MCG] TABLET PO SCH (09:14)
[2020-11-02] MEDS ORDERED: SODIUM CHLORIDE 0.9% 250 ML IV ONE (11:01)
[2020-11-03] MEDS: HEPARIN SODIUM,PORCINE 5,000 UNITS/ML VIAL SQ SCH ×3 (00:12→17:21)
[2020-11-03 00:15] VITALS: BP 106/45
[2020-11-03 04:24] VITALS: BP 98/45
[2020-11-03 07:36] VITALS: BP 116/48
[2020-11-03] MEDS: ASPIRIN 81 MG DR TABLET PO SCH (08:11)
[2020-11-03] MEDS: CHOLECALCIFEROL (VIT D3) 1,000 UNITS [25 MCG] TABLET PO SCH (08:11)
[2020-11-03] MEDS: OMEPRAZOLE 20 MG CAPSULE PO SCH (08:11)
[2020-11-03] MEDS: DOCUSATE SODIUM 100 MG CAPSULE PO SCH ×2 (08:12→20:21)
[2020-11-03] MEDS: ATORVASTATIN CALCIUM 20 MG TABLET PO SCH (08:12)
[2020-11-03] MEDS: FERROUS SULFATE 325 MG EC TABLET PO SCH ×2 (08:12→17:21)
[2020-11-03] MEDS: LETROZOLE 2.5 MG TABLET PO SCH ×2 (08:13→09:00)
[2020-11-03] MEDS: METOPROLOL TARTRATE 50 MG TABLET PO SCH ×2 (09:00→20:19)
[2020-11-03] MEDS: FUROSEMIDE 40 MG/4 ML VIAL IVP SCH ×2 (09:00→20:19)
[2020-11-03 11:16] VITALS: BP 107/46
[2020-11-03 15:31] VITALS: BP 107/43
[2020-11-03 19:46] VITALS: BP 116/52
[2020-11-04] VITALS (7 sets, daily range): BP systolic 107–137; BP diastolic 48–66
[2020-11-04] MEDS: HEPARIN SODIUM,PORCINE 5,000 UNITS/ML VIAL SQ SCH (00:29)
[2020-11-04] MEDS: ACETAMINOPHEN 325 MG TABLET PO PRN (02:37)
[2020-11-04 06:16] LABS: BASOPHILS % (AUTO) 0.6 % (0.0-2.0); EOSINOPHILS % (AUTO) 3.6 % (1.0-6.0); HEMATOCRIT 30.6 % (36-46); HEMOGLOBIN 9.9 g/dL (12.0-16.0); LYMPHOCYTES # (AUTO) 0.5 K/uL (1.0-4.8); LYMPHOCYTES % (AUTO) 17.2 % (22.0-44.0); MEAN CORPUSCULAR HEMOGLOBIN 32.2 pg (26.0-34.0); MEAN CORPUSCULAR HGB CONC 32.4 G/dL (31.0-37.0); MEAN CORPUSCULAR VOLUME 99 fL (80-100); MONOCYTES # (AUTO) 0.6 K/uL (0.1-1.0); MONOCYTES % (AUTO) 18.2 % (2.0-9.0); NEUTROPHILS # (AUTO) 1.9 K/uL (1.8-7.7); NEUTROPHILS % (AUTO) 60.4 % (40.0-70.0); PLATELET COUNT (AUTO) 43 K/uL (150-450); RED BLOOD CELL COUNT(AUTO) 3.08 MIL/uL (4.00-5.20); RED CELL DISTRIBUTION WIDTH 15.1 % (11.5-14.5)
[2020-11-04 06:44] LABS: ALBUMIN 2.8 g/dL (3.4-5.0); BILIRUBIN,TOTAL 0.6 mg/dL (0.1-1.0); CALCIUM, TOTAL 9.1 mg/dL (8.8-10.5); CREATININE 1.22 mg/dL (0.60-1.30); MAGNESIUM 2.3 mg/dL (1.80-2.40); POTASSIUM 3.8 mmol/L (3.5-5.1)
[2020-11-04] MEDS: FERROUS SULFATE 325 MG EC TABLET PO SCH ×2 (08:00→18:10)
[2020-11-04] MEDS: CHOLECALCIFEROL (VIT D3) 1,000 UNITS [25 MCG] TABLET PO SCH (09:00)
[2020-11-04] MEDS: ASPIRIN 81 MG DR TABLET PO SCH (09:00)
[2020-11-04] MEDS: DOCUSATE SODIUM 100 MG CAPSULE PO SCH ×2 (09:00→21:44)
[2020-11-04] MEDS: LETROZOLE 2.5 MG TABLET PO SCH (09:00)
[2020-11-04] MEDS: FUROSEMIDE 40 MG/4 ML VIAL IVP SCH ×2 (09:00→21:29)
[2020-11-04] MEDS: OMEPRAZOLE 20 MG CAPSULE PO SCH (09:00)
[2020-11-04] MEDS: ATORVASTATIN CALCIUM 20 MG TABLET PO SCH (09:00)
[2020-11-04] MEDS: METOPROLOL TARTRATE 50 MG TABLET PO SCH ×2 (09:00→21:45)
[2020-11-04] MEDS ORDERED: TICAGRELOR 90 MG TABLET PO SCH (11:30)
[2020-11-04] MEDS: TICAGRELOR 60 MG TABLET PO SCH ×2 (16:17→21:45)
[2020-11-05 03:41] VITALS: BP 141/61
[2020-11-05 07:40] VITALS: BP 138/58
[2020-11-05] MEDS: METOPROLOL TARTRATE 50 MG TABLET PO SCH (08:24)
[2020-11-05] MEDS: OMEPRAZOLE 20 MG CAPSULE PO SCH (08:24)
[2020-11-05] MEDS: ATORVASTATIN CALCIUM 20 MG TABLET PO SCH (08:25)
[2020-11-05] MEDS: FERROUS SULFATE 325 MG EC TABLET PO SCH ×2 (08:25→08:26)
[2020-11-05] MEDS: DOCUSATE SODIUM 100 MG CAPSULE PO SCH (08:25)
[2020-11-05] MEDS: ASPIRIN 81 MG DR TABLET PO SCH (08:25)
[2020-11-05] MEDS: FUROSEMIDE 40 MG/4 ML VIAL IVP SCH (08:25)
[2020-11-05] MEDS: CHOLECALCIFEROL (VIT D3) 1,000 UNITS [25 MCG] TABLET PO SCH (08:25)
[2020-11-05] MEDS: TICAGRELOR 60 MG TABLET PO SCH (08:25)
[2020-11-05] MEDS: LETROZOLE 2.5 MG TABLET PO SCH (08:26)
[2020-11-05 11:28] VITALS: BP 119/51
[2020-11-06 03:28] LABS: GLUCOMETER DEV NAME(LOC) 5S.1; GLUCOSE,POINT OF CARE 166 MG/DL (70-110)
== END 2020-11-05 17:15 | DRG 291 ==
LOC: EMS 11:55 → 5S 16:06
PROVIDERS: ADMIT Internal Medicine; ATTEND Internal Medicine
PROC: 0W993ZZ Drainage of Right Pleural Cavity, Percutaneous Approach (ICD-10-PCS; principal; 2020-11-02)
PROC: 30233Q1 Transfusion of Nonautologous White Cells into Peripheral Vein, Percutaneous Approach (ICD-10-PCS; 2020-11-02)
DX: I13.0 Hypertensive heart and chronic kidney disease with heart failure and stage 1 through stage 4 chronic kidney disease, or unspecified chronic kidney disease (principal); I50.31 Acute diastolic (congestive) heart failure; J96.01 Acute respiratory failure with hypoxia; E44.0 Moderate protein-calorie malnutrition; D61.818 Other pancytopenia; I27.20 Pulmonary hypertension, unspecified; I25.10 Atherosclerotic heart disease of native coronary artery without angina pectoris; K21.9 Gastro-esophageal reflux disease without esophagitis; D69.6 Thrombocytopenia, unspecified; I07.1 Rheumatic tricuspid insufficiency; E87.6 Hypokalemia; E78.5 Hyperlipidemia, unspecified; J44.9 Chronic obstructive pulmonary disease, unspecified; N18.9 Chronic kidney disease, unspecified; Z20.822 Contact with and (suspected) exposure to COVID-19; E11.22 Type 2 diabetes mellitus with diabetic chronic kidney disease; I25.2 Old myocardial infarction; Z85.3 Personal history of malignant neoplasm of breast; Z90.12 Acquired absence of left breast and nipple; Z87.01 Personal history of pneumonia (recurrent); Z68.29 Body mass index [BMI] 29.0-29.9, adult; Z79.899 Other long term (current) drug therapy; Z79.82 Long term (current) use of aspirin; Z98.42 Cataract extraction status, left eye
CPT/HCPCS: 32555; 71045; 76942; 80048; 80053; 81001; 82465; 82945; 82962; 83605; 83615; 83690; 83735; 83880; 84155; 84157; 84484; 85025; 85610; 85730; 86850; 86900; 86901; 87426; 93005; 93308; 99285; A9575; G0378; J1644; J1940; J7050; P9035; 36415-L1; 36415-TC

== ENCOUNTER 2021-02-10 08:10 | Day surgery (SDC) | payer MEDICARE, MEDICAID ==
[2021-02-08 10:00] LABS: COVID AG,FIA SOURCE NASOPHARYNGEAL
[2021-02-08 10:08] LABS: BASOPHILS % (AUTO) 0.5 % (0.0-2.0); EOSINOPHILS % (AUTO) 1.7 % (1.0-6.0); HEMATOCRIT 36.4 % (36-46); HEMOGLOBIN 11.9 g/dL (12.0-16.0); LYMPHOCYTES # (AUTO) 1.2 K/uL (1.0-4.8); MEAN CORPUSCULAR HEMOGLOBIN 32.3 pg (26.0-34.0); MEAN CORPUSCULAR HGB CONC 32.7 G/dL (31.0-37.0); MEAN CORPUSCULAR VOLUME 99 fL (80-100); MONOCYTES # (AUTO) 0.5 K/uL (0.1-1.0); MONOCYTES % (AUTO) 12.9 % (2.0-9.0); NEUTROPHILS # (AUTO) 1.9 K/uL (1.8-7.7); NEUTROPHILS % (AUTO) 52.9 % (40.0-70.0); PLATELET COUNT (AUTO) 82 K/uL (150-450); RED BLOOD CELL COUNT(AUTO) 3.68 MIL/uL (4.00-5.20); RED CELL DISTRIBUTION WIDTH 14.2 % (11.5-14.5)
[2021-02-08 10:13] LABS: CALCIUM, TOTAL 9.3 mg/dL (8.8-10.5); CREATININE 1.06 mg/dL (0.60-1.30); POTASSIUM 3.9 mmol/L (3.5-5.1)
[2021-02-08 10:16] LABS: PROTHROMBIN TIME 10.5 SEC (9.4-11.6)
[~2021-02-10] VITALS: Ht 157.5 cm; Wt 60.5 kg
[~2021-02-10 08:10] MED LIST changes: -ACET-2247 PO; +AMLO2.5T96 PO; -BISA10SU11 PR; -CHOL100018 PO; -FERR-89 PO; -HYDR-4723 PO; -LETR2.5T7 PO; -MOM30 PO; +SODIUM CHLORIDE 0.9% 1,000 ML IV ONE; +SODIUM CHLORIDE 0.9% 1,000 ML ONE; +TICA60TA PO; -TICA90TA PO
[2021-02-10] MEDS ORDERED: LIDOCAINE/PF 1% 30 ML VIAL ONE ×2 (09:24→10:53)
[2021-02-10] MEDS ORDERED: FentaNYL CITRATE PF 100 MCG/2 ML VIAL ONE (09:24)
[2021-02-10] MEDS ORDERED: MIDAZOLAM HCL 2 MG/2 ML VIAL ONE (09:24)
[2021-02-10] MEDS ORDERED: SODIUM BICARBONATE 50 MEQ/50 ML VIAL ONE (09:24)
[2021-02-10] MEDS ORDERED: IOHEXOL 300 MG/ML 150 ML VIAL ONE (09:24)
[2021-02-10] MEDS ORDERED: HEPARIN SODIUM 1000 UNITS/NS 1,000 ML ONE (09:25)
[2021-02-10] MEDS ORDERED: HEPARIN SODIUM,PORCINE 1,000 UNITS/ML 10 ML VIAL ONE (09:25)
[2021-02-10] MEDS ORDERED: NITROGLYCERIN 50 MG/D5% WATER 250 ML ONE (09:28)
[2021-02-10] MEDS ORDERED: VERAPAMIL HCL 2.5 MG/ML 2 ML VIAL ONE (09:28)
[2021-02-10] MEDS ORDERED: SODIUM CHLORIDE 0.9% 1,000 ML IV ONE (10:00)
[2021-02-10 10:17] VITALS: BP 173/72
[2021-02-10] MEDS ORDERED: IOHEXOL 300 MG/ML 50 ML VIAL ONE (10:21)
[2021-02-10] MEDS ORDERED: HEPARIN SODIUM 1000 UNITS/NS 500 ML ONE (10:28)
[2021-02-10] MEDS ORDERED: HEPARIN SODIUM 1000 UNITS/NS 1,000 ML IARTER ONE (10:45)
[2021-02-10] MEDS ORDERED: MIDAZOLAM HCL 2 MG/2 ML VIAL IVP ONE ×3 (10:45→12:15)
[2021-02-10] MEDS ORDERED: FentaNYL CITRATE PF 100 MCG/2 ML VIAL IVP ONE ×2 (10:45)
[2021-02-10] MEDS ORDERED: IOHEXOL 300 MG/ML 150 ML VIAL IARTER ONE (10:45)
[2021-02-10] MEDS ORDERED: LIDOCAINE 1% 30 ML/SOD BICARB 8.4% 4 ML SQ ONE (10:45)
[2021-02-10] MEDS ORDERED: ADENOSINE IV ONE (11:45)
[2021-02-10] MEDS ORDERED: CONTAINER EMPTY IV ONE (11:45)
[2021-02-10 12:08] VITALS: BP 142/62
[2021-02-10] MEDS ORDERED: SODIUM CHLORIDE 0.9% 500 ML IV ONE (12:45)
== END 2021-02-10 15:30 | disposition home or self-care (01) ==
LOC: CATHLAB 08:10
PROVIDERS: ATTEND Internal Medicine Cardiovascular Disease
DX: I25.118 Atherosclerotic heart disease of native coronary artery with other forms of angina pectoris (principal); R94.39 Abnormal result of other cardiovascular function study; I50.32 Chronic diastolic (congestive) heart failure; N18.30 Chronic kidney disease, stage 3 unspecified; I34.0 Nonrheumatic mitral (valve) insufficiency; I27.21 Secondary pulmonary arterial hypertension; I13.0 Hypertensive heart and chronic kidney disease with heart failure and stage 1 through stage 4 chronic kidney disease, or unspecified chronic kidney disease; E78.5 Hyperlipidemia, unspecified; Z98.890 Other specified postprocedural states; Z98.49 Cataract extraction status, unspecified eye; Z79.899 Other long term (current) drug therapy
CPT/HCPCS: 36415; 80048; 85025; 85610; 85730; 87426; 93005; 93460; 99152; 99153; C1760; C9803; J0153; J1644 ×2; J2250; J3010; J3490 ×3; J7030; Q9967 ×2

== ENCOUNTER → 2021-03-08 | Outpatient (CLI) | payer MEDICARE, MEDICAID ==
[~2021-03-08] MED LIST changes: -SODIUM CHLORIDE 0.9% 1,000 ML IV ONE; -SODIUM CHLORIDE 0.9% 1,000 ML ONE
[2021-03-08 10:14] LABS: BASOPHILS % (AUTO) 0.9 % (0.0-2.0); EOSINOPHILS % (AUTO) 2.7 % (1.0-6.0); HEMATOCRIT 36.4 % (36-46); HEMOGLOBIN 12.3 g/dL (12.0-16.0); LYMPHOCYTES # (AUTO) 1.1 K/uL (1.0-4.8); LYMPHOCYTES % (AUTO) 34.3 % (22.0-44.0); MEAN CORPUSCULAR HEMOGLOBIN 33.1 pg (26.0-34.0); MEAN CORPUSCULAR HGB CONC 33.8 G/dL (31.0-37.0); MEAN CORPUSCULAR VOLUME 98 fL (80-100); MONOCYTES # (AUTO) 0.5 K/uL (0.1-1.0); MONOCYTES % (AUTO) 15.7 % (2.0-9.0); NEUTROPHILS # (AUTO) 1.5 K/uL (1.8-7.7); NEUTROPHILS % (AUTO) 46.4 % (40.0-70.0); RED BLOOD CELL COUNT(AUTO) 3.72 MIL/uL (4.00-5.20)
[2021-03-08 10:33] LABS: HEMOGLOBIN A1C 5.7 % (3.8-5.6)
[2021-03-08 10:41] LABS: PLATELET COUNT (AUTO) 93 K/uL (150-450); PLATELET MORPHOLOGY COMMENT LARGE PLTS PRESENT
[2021-03-08 10:42] LABS: ALBUMIN 3.8 g/dL (3.4-5.0); BILIRUBIN,TOTAL 0.6 mg/dL (0.1-1.0); CALCIUM, TOTAL 9.3 mg/dL (8.8-10.5); CREATININE 1.03 mg/dL (0.60-1.30); FREE THYROXINE INDEX 3.1 (1.4-4.5); MAGNESIUM 2.4 mg/dL (1.80-2.40); POTASSIUM 3.3 mmol/L (3.5-5.1); THYROID STIMULATING HORMONE 1.15 uIU/mL (0.36-3.74); TOTAL PROTEIN, SERUM 8.8 g/dL (6.4-8.2)
== END | disposition home or self-care (01) ==
LOC: LABPV 08:37
PROVIDERS: ATTEND Internal Medicine Cardiovascular Disease
DX: I50.9 Heart failure, unspecified (principal); E11.9 Type 2 diabetes mellitus without complications; Z79.899 Other long term (current) drug therapy
CPT/HCPCS: 80053; 80061; 82306; 83036; 83735; 84436; 84443; 84479; 85025

== ENCOUNTER 2021-05-19 07:33 | Inpatient (IN) | payer MEDICARE, MEDICAID ==
[2021-05-17 11:31] LABS: COVID AG,FIA SOURCE NASOPHARYNGEAL
[2021-05-17 11:57] LABS: HEMOGLOBIN 12.1 g/dL (12.0-16.0); MONOCYTES # (AUTO) 0.6 K/uL (0.1-1.0); MONOCYTES % (AUTO) 12.4 % (2.0-9.0); NEUTROPHILS # (AUTO) 2.9 K/uL (1.8-7.7); RED CELL DISTRIBUTION WIDTH 13.6 % (11.5-14.5)
[2021-05-17 12:01] LABS: BASOPHILS % (AUTO) 0.6 % (0.0-2.0); EOSINOPHILS % (AUTO) 1.1 % (1.0-6.0); HEMATOCRIT 36.1 % (36-46); LYMPHOCYTES % (AUTO) 21.4 % (22.0-44.0); MEAN CORPUSCULAR HEMOGLOBIN 32.9 pg (26.0-34.0); MEAN CORPUSCULAR HGB CONC 33.4 G/dL (31.0-37.0); MEAN CORPUSCULAR VOLUME 99 fL (80-100); NEUTROPHILS % (AUTO) 64.5 % (40.0-70.0); RED BLOOD CELL COUNT(AUTO) 3.67 MIL/uL (4.00-5.20)
[2021-05-17 12:08] LABS: CALCIUM, TOTAL 9.6 mg/dL (8.8-10.5); CREATININE 0.96 mg/dL (0.60-1.30); POTASSIUM 3.8 mmol/L (3.5-5.1)
[2021-05-17 12:22] LABS: INR 1.1 (0.9-1.1); PROTHROMBIN TIME 11.9 SEC (9.4-11.6)
[2021-05-17 12:37] LABS: PLATELET COUNT (AUTO) 78 K/uL (150-450)
[~2021-05-19] VITALS: Ht 157.5 cm; Wt 60.5 kg
[2021-05-19] MEDS ORDERED: SODIUM CHLORIDE 0.9% 1,000 ML IV ONE ×2 (08:00→12:30)
[2021-05-19] MEDS ORDERED: SODIUM CHLORIDE 0.9% 1,000 ML ONE (08:01)
[2021-05-19] MEDS ORDERED: SODIUM BICARBONATE 50 MEQ/50 ML VIAL ONE (08:19)
[2021-05-19] MEDS ORDERED: IOHEXOL 300 MG/ML 50 ML VIAL ONE (08:19)
[2021-05-19] MEDS ORDERED: IOHEXOL 300 MG/ML 100 ML VIAL ONE (08:19)
[2021-05-19] MEDS ORDERED: LIDOCAINE/PF 1% 30 ML VIAL ONE (08:19)
[2021-05-19] MEDS ORDERED: HEPARIN SODIUM 1000 UNITS/NS 1,000 ML ONE (08:19)
[2021-05-19] MEDS ORDERED: IOHEXOL 300 MG/ML 150 ML VIAL ONE (08:19)
[2021-05-19 10:08] VITALS: BP 199/76
[2021-05-19] MEDS ORDERED: FentaNYL CITRATE PF 100 MCG/2 ML VIAL ONE (10:08)
[2021-05-19] MEDS ORDERED: MIDAZOLAM HCL 2 MG/2 ML VIAL ONE ×2 (10:09→10:51)
[2021-05-19] MEDS ORDERED: NITROGLYCERIN 50 MG/D5% WATER 250 ML ONE (10:09)
[2021-05-19] MEDS ORDERED: FentaNYL CITRATE PF 100 MCG/2 ML VIAL IVP ONE ×2 (11:00)
[2021-05-19] MEDS ORDERED: HEPARIN SODIUM,PORCINE 5,000 UNITS/ML VIAL IVP ONE (11:00)
[2021-05-19] MEDS ORDERED: MIDAZOLAM HCL 2 MG/2 ML VIAL IVP ONE ×2 (11:00)
[2021-05-19] MEDS ORDERED: HEPARIN SODIUM 1000 UNITS/NS 1,000 ML IARTER ONE (11:00)
[2021-05-19] MEDS ORDERED: LIDOCAINE 1% 30 ML/SOD BICARB 8.4% 4 ML SQ ONE (11:00)
[2021-05-19] MEDS ORDERED: IOHEXOL 300 MG/ML 150 ML VIAL IARTER ONE (11:00)
[2021-05-19] MEDS ORDERED: IOHEXOL 300 MG/ML 100 ML VIAL IARTER ONE (11:00)
[2021-05-19] MEDS ORDERED: IOHEXOL 300 MG/ML 50 ML VIAL IARTER ONE (11:00)
[2021-05-19] MEDS ORDERED: CLOPIDOGREL BISULFATE 300 MG TABLET ONE (11:07)
[2021-05-19 11:41] VITALS: BP 168/68
[2021-05-19] MEDS ORDERED: CLOPIDOGREL BISULFATE 300 MG TABLET PO ONE (11:45)
[2021-05-19] MEDS ORDERED: ACETAMINOPHEN 325 MG TABLET PO PRN (12:30)
[2021-05-19] MEDS ORDERED: HYDROCODONE/ACETAMINOPHEN 5-325 MG TABLET PO PRN (12:30)
[2021-05-19] MEDS ORDERED: CloNIDine HCL 0.1 MG TABLET PO PRN (13:00)
[2021-05-19] MEDS ORDERED: HydrALAZINE HCL 20 MG/ML VIAL IVP PRN (13:00)
[2021-05-19 16:48] VITALS: BP 137/61
[2021-05-19 19:33] VITALS: BP 109/59
[2021-05-19] MEDS: METOPROLOL SUCCINATE 50 MG ER TABLET PO SCH (20:16)
[2021-05-19] MEDS: TICAGRELOR 90 MG TABLET PO SCH (20:18)
[2021-05-20 00:09] VITALS: BP 135/69
[2021-05-20 04:31] VITALS: BP 147/75
[2021-05-20] MEDS: FUROSEMIDE 40 MG TABLET PO SCH ×2 (08:21→12:31)
[2021-05-20] MEDS: METOPROLOL SUCCINATE 50 MG ER TABLET PO SCH (08:21)
[2021-05-20] MEDS: TICAGRELOR 90 MG TABLET PO SCH (08:21)
[2021-05-20] MEDS ORDERED: FAMOTIDINE 20 MG TABLET PO SCH (09:00)
[2021-05-20] MEDS ORDERED: ASPIRIN 81 MG CHEWABLE TABLET PO SCH (09:00)
[2021-05-20] MEDS ORDERED: ATORVASTATIN CALCIUM 20 MG TABLET PO SCH (09:00)
[2021-05-20 09:10] VITALS: BP 145/72
[2021-05-20 09:12] LABS: BASOPHILS % (AUTO) 0.7 % (0.0-2.0); EOSINOPHILS % (AUTO) 1.5 % (1.0-6.0); HEMATOCRIT 33.9 % (36-46); HEMOGLOBIN 11.3 g/dL (12.0-16.0); LYMPHOCYTES % (AUTO) 21.2 % (22.0-44.0); MEAN CORPUSCULAR HEMOGLOBIN 32.8 pg (26.0-34.0); MEAN CORPUSCULAR HGB CONC 33.2 G/dL (31.0-37.0); MEAN CORPUSCULAR VOLUME 99 fL (80-100); MONOCYTES # (AUTO) 0.5 K/uL (0.1-1.0); MONOCYTES % (AUTO) 10.5 % (2.0-9.0); NEUTROPHILS % (AUTO) 66.1 % (40.0-70.0); PLATELET COUNT (AUTO) 75 K/uL (150-450); RED BLOOD CELL COUNT(AUTO) 3.44 MIL/uL (4.00-5.20); RED CELL DISTRIBUTION WIDTH 13.5 % (11.5-14.5)
[2021-05-20 09:42] LABS: ANION GAP 10 mmol/L (8-16); CALCIUM, TOTAL 8.9 mg/dL (8.8-10.5); CARBON DIOXIDE 26 mmol/L (22-29); CHLORIDE 106 mmol/L (98-107); CREATINE KINASE, TOTAL ONLY 91 U/L (26-192); CREATININE 0.88 mg/dL (0.60-1.30); GLUCOSE,RANDOM 207 mg/dL (70-110); POTASSIUM 3.4 mmol/L (3.5-5.1); SODIUM SERUM 142 mmol/L (136-145); UREA NITROGEN, BLOOD 19 mg/dL (7-18)
[2021-05-20 09:48] LABS: GLOMERULAR FILTR. RATE CALC > 60 mL/min (>60)
[2021-05-20] MEDS ORDERED: TICA90TA PO (11:39)
== END 2021-05-20 14:40 | disposition home or self-care (01) | DRG 247 ==
LOC: CATHLAB 07:33 → 5S 16:15
PROVIDERS: ADMIT Internal Medicine; ATTEND Internal Medicine Cardiovascular Disease
PROC: 027135Z Dilation of Coronary Artery, Two Arteries with Two Drug-eluting Intraluminal Devices, Percutaneous Approach (ICD-10-PCS; principal; 2021-05-19)
DX: I25.10 Atherosclerotic heart disease of native coronary artery without angina pectoris (principal); I13.0 Hypertensive heart and chronic kidney disease with heart failure and stage 1 through stage 4 chronic kidney disease, or unspecified chronic kidney disease; I50.32 Chronic diastolic (congestive) heart failure; E78.5 Hyperlipidemia, unspecified; D69.6 Thrombocytopenia, unspecified; N18.30 Chronic kidney disease, stage 3 unspecified; I27.20 Pulmonary hypertension, unspecified; I08.0 Rheumatic disorders of both mitral and aortic valves; Z20.822 Contact with and (suspected) exposure to COVID-19
CPT/HCPCS: 37236; 80048; 82550; 85025; 85610; 85730; 87081; 92920; 92921; 92928; 93005; J1644; J2250; J3010; J3490; J7030; Q9967; 36415-L1; 36415-TC; C9803

== ENCOUNTER 2021-07-23 08:31 | Inpatient (IN) | payer MEDICARE, MEDICAID ==
[~2021-07-23] VITALS: Ht 157.5 cm; Wt 104.0 kg
[~2021-07-23 08:31] MED LIST changes: -TICA60TA PO; +TICA90TA PO
[2021-07-23] MEDS ORDERED: 0.9% SODIUM CHLORIDE 10 ML SYRINGE IVP PRN ×4 (08:45→13:00)
[2021-07-23] MEDS ORDERED: SODIUM CHLORIDE 0.9% 3,000 ML IV ONE (08:45)
[2021-07-23] MEDS ORDERED: DEXAMETHASONE SOD PHOS 4 MG/ML 5 ML VIAL IVP ONE (09:00)
[2021-07-23 09:22] LABS: BASOPHILS % (AUTO) 0.2 % (0.0-2.0); EOSINOPHILS % (AUTO) 0.1 % (1.0-6.0); HEMATOCRIT 34.3 % (36-46); HEMOGLOBIN 11.8 g/dL (12.0-16.0); LYMPHOCYTES # (AUTO) 0.5 K/uL (1.0-4.8); LYMPHOCYTES % (AUTO) 11.6 % (22.0-44.0); MEAN CORPUSCULAR HEMOGLOBIN 32.3 pg (26.0-34.0); MEAN CORPUSCULAR HGB CONC 34.4 G/dL (31.0-37.0); MEAN CORPUSCULAR VOLUME 94 fL (80-100); MONOCYTES # (AUTO) 0.4 K/uL (0.1-1.0); MONOCYTES % (AUTO) 10.6 % (2.0-9.0); NEUTROPHILS # (AUTO) 3.1 K/uL (1.8-7.7); NEUTROPHILS % (AUTO) 77.5 % (40.0-70.0); RED BLOOD CELL COUNT(AUTO) 3.64 MIL/uL (4.00-5.20); RED CELL DISTRIBUTION WIDTH 13.2 % (11.5-14.5)
[2021-07-23 09:30] LABS: PROTHROMBIN TIME 10.9 SEC (9.4-11.6)
[2021-07-23 09:31] LABS: CALCIUM, TOTAL 8.5 mg/dL (8.8-10.5); CREATININE 1.27 mg/dL (0.60-1.30); POTASSIUM 3.3 mmol/L (3.5-5.1)
[2021-07-23 09:34] LABS: PLATELET COUNT (AUTO) 84 K/uL (150-450)
[2021-07-23 09:35] LABS: PLATELET MORPHOLOGY COMMENT LARGE PLTS PRESENT
[2021-07-23 09:37] LABS: ALBUMIN 2.8 g/dL (3.4-5.0); BILIRUBIN,TOTAL 0.7 mg/dL (0.1-1.0); TOTAL PROTEIN, SERUM 7.3 g/dL (6.4-8.2)
[2021-07-23 09:39] LABS: LACTIC ACID 1.6 mmol/L (0.4-2.0)
[2021-07-23] MEDS ORDERED: REMDESIVIR 200 MG in SODIUM CHLORIDE 0.9% 250 ML IV ONE (10:00)
[2021-07-23] MEDS ORDERED: POTASSIUM CHLORIDE 20 MEQ ER TABLET PO ONE (10:15)
[2021-07-23] MEDS ORDERED: ONDANSETRON HCL 4 MG/2 ML VIAL IVP ONE (10:30)
[2021-07-23] MEDS ORDERED: CefTRIAXone 1 GM/DEXTROSE 50 ML IV ONE (10:30)
[2021-07-23 10:33] LABS: ABG BASE EXCESS -4.9 mmol/L (-2.0-3.0); ABG CARBOXYHEMOGLOBIN 0.3 % (0.0-1.5); ABG HCO3 20.2 mmol/L (22.0-26.0); ABG METHEMOGLOBIN 0.2 % (0.0-1.5); ABG OXYGEN CONTENT 16.9 mL/dL (15.0-23.0); ABG OXYGEN SATURATION 89.8 % (95.0-98.0); ABG OXYHEMOGLOBIN 89.4 % (94.0-100.0); ABG PCO2 47 mmHg (35-45); ABG PH 7.286 (7.35-7.450); ABG TOTAL HEMOGLOBIN 13.4 G/dL (12.0-18.0); PO2, ARTERIAL BG 65.7 mmHg (71.0-79.0); SOURCE, BLOOD GAS ARTERIAL; TEMPERATURE, FAHRENHEIT, BG 98.6 FAHREN (96.0-98.6)
[2021-07-23 10:34] LABS: ABG A-A DIFF O2 600.6 mmHg (10-20.0); O2 DEVICE,BLOOD GAS NON REBREATHER (ROOM AIR); SITE, BLOOD GAS RT RADIAL
[2021-07-23] MEDS ORDERED: ACETAMINOPHEN 325 MG TABLET PO PRN ×2 (10:45→13:00)
[2021-07-23] MEDS ORDERED: ONDANSETRON HCL 4 MG/2 ML VIAL IVP PRN ×3 (10:45→15:15)
[2021-07-23 10:54] LABS: COVID AG,FIA SOURCE NASOPHARYNGEAL
[2021-07-23 11:22] LABS: INFLUENZA TYPE A NEGATIVE FOR TYPE A (NEGATIVE); INFLUENZA TYPE B NEGATIVE FOR TYPE B (NEGATIVE)
[2021-07-23] MEDS ORDERED: SODIUM CHLORIDE 0.9% 250 ML IV ONE (13:18)
[2021-07-23 14:00] VITALS: BP 113/63
[2021-07-23] MEDS ORDERED: MORPHINE SULFATE 2 MG/ML SYRINGE IVP PRN (15:15)
[2021-07-23] MEDS ORDERED: ZOLPIDEM TARTRATE 5 MG TABLET PO PRN (15:15)
[2021-07-23] MEDS ORDERED: MAGNESIUM HYDROXIDE SUSPENSION 30 ML UDCUP PO PRN (15:15)
[2021-07-23] MEDS ORDERED: BISACODYL 10 MG RECTAL RECTAL SUPPOSITORY PR PRN (15:15)
[2021-07-23] MEDS: HEPARIN SODIUM,PORCINE 5,000 UNITS/ML VIAL SQ SCH (15:31)
[2021-07-23 16:00] VITALS: BP 103/64
[2021-07-23 16:19] LABS: ABG BASE EXCESS -6.2 mmol/L (-2.0-3.0); ABG CARBOXYHEMOGLOBIN 0.4 % (0.0-1.5); ABG HCO3 19.3 mmol/L (22.0-26.0); ABG METHEMOGLOBIN 0.3 % (0.0-1.5); ABG OXYGEN CONTENT 15.5 mL/dL (15.0-23.0); ABG OXYHEMOGLOBIN 82.4 % (94.0-100.0); ABG PCO2 42 mmHg (35-45); ABG TOTAL HEMOGLOBIN 13.4 G/dL (12.0-18.0); PO2, ARTERIAL BG 47.7 mmHg (71.0-79.0); SITE, BLOOD GAS RT RADIAL; SOURCE, BLOOD GAS ARTERIAL; TEMPERATURE, FAHRENHEIT, BG 97.8 FAHREN (96.0-98.6)
[2021-07-23 16:20] LABS: ABG A-A DIFF O2 624.1 mmHg (10-20.0); O2 DEVICE,BLOOD GAS BIPAP (ROOM AIR); SPONTANEOUS VT, BG 424 ml
[2021-07-23] MEDS ORDERED: RAPID SEQUENCE KIT [RSI] 1 EACH KIT MISC ONE (16:33)
[2021-07-23] MEDS ORDERED: ETOMIDATE 2 MG/ML 10 ML VIAL ONE (16:58)
[2021-07-23] MEDS ORDERED: PROPOFOL 1000 MG/ISO-OSM 100 ML ONE (17:12)
[2021-07-23] MEDS ORDERED: PROPOFOL 1000 MG/ISO-OSM 100 ML IV PRN (17:15)
[2021-07-23] MEDS ORDERED: SODIUM CHLORIDE 0.9% 500 ML IV ONE (17:17)
[2021-07-23 18:09] LABS: C-REACTIVE PROTEIN QUANT 3.37 mg/dL (0.00-0.30)
[2021-07-23 18:45] LABS: ERYTHROCYTE SEDIMENTATION RATE 65 MM/HR (0-20)
[2021-07-23] MEDS ORDERED: CISATRACURIUM BESYLATE 50 MG in DEXTROSE 5%-WATER 245 ML IV PRN (19:30)
[2021-07-23 19:42] LABS: ABG BASE EXCESS -6.3 mmol/L (-2.0-3.0); ABG CARBOXYHEMOGLOBIN 0.2 % (0.0-1.5); ABG HCO3 19.9 mmol/L (22.0-26.0); ABG METHEMOGLOBIN 0.3 % (0.0-1.5); ABG OXYGEN CONTENT 16.9 mL/dL (15.0-23.0); ABG OXYGEN SATURATION 99.1 % (95.0-98.0); ABG OXYHEMOGLOBIN 98.6 % (94.0-100.0); ABG PCO2 35 mmHg (35-45); ABG PH 7.356 (7.35-7.450); PO2, ARTERIAL BG 144.5 mmHg (71.0-79.0); SOURCE, BLOOD GAS ARTERIAL
[2021-07-23 19:44] LABS: O2 DEVICE,BLOOD GAS VENTILATOR (ROOM AIR); PEEP,BG 5 cm H2O; SITE, BLOOD GAS ARTERIAL LINE; VT, ABG 400 ml
[2021-07-23 20:00] VITALS: BP 107/47
[2021-07-23 20:20] LABS: BASOPHILS % (AUTO) 0.1 % (0.0-2.0); EOSINOPHILS % (AUTO) 0 % (1.0-6.0); HEMATOCRIT 36.2 % (36-46); HEMOGLOBIN 12.5 g/dL (12.0-16.0); LYMPHOCYTES # (AUTO) 0.4 K/uL (1.0-4.8); LYMPHOCYTES % (AUTO) 7.8 % (22.0-44.0); MEAN CORPUSCULAR HEMOGLOBIN 32.7 pg (26.0-34.0); MEAN CORPUSCULAR HGB CONC 34.5 G/dL (31.0-37.0); MEAN CORPUSCULAR VOLUME 95 fL (80-100); MONOCYTES # (AUTO) 0.2 K/uL (0.1-1.0); MONOCYTES % (AUTO) 4.1 % (2.0-9.0); NEUTROPHILS # (AUTO) 4.1 K/uL (1.8-7.7); PLATELET COUNT (AUTO) 93 K/uL (150-450); RED BLOOD CELL COUNT(AUTO) 3.83 MIL/uL (4.00-5.20); RED CELL DISTRIBUTION WIDTH 13.3 % (11.5-14.5)
[2021-07-23] MEDS: OXYGEN THERAPY IH SCH (20:28)
[2021-07-23] MEDS ORDERED: CISATRACURIUM BESYLATE 2 MG/ML 10 ML VIAL IVP ONE (20:30)
[2021-07-23] MEDS: METOPROLOL TARTRATE 50 MG TABLET PO SCH (20:48)
[2021-07-23] MEDS: TICAGRELOR 90 MG TABLET PO SCH (20:51)
[2021-07-23] MEDS: DOXYCYCLINE HYCLATE 100 MG in DEXTROSE 5%-WATER 100 ML IV SCH (20:51)
[2021-07-23] MEDS: DOCUSATE SODIUM 100 MG CAPSULE PO SCH (20:51)
[2021-07-23] MEDS: CISATRACURIUM BESYLATE 100 MG in DEXTROSE 5%-WATER 240 ML IV PRN (20:54)
[2021-07-23] MEDS ORDERED: ALBUMIN HUMAN 25%-25GM/100ML 100 ML IV ONE (21:45)
[2021-07-23] MEDS: NOREPINEPHRINE 4 MG/D5%-WATER 250 ML IV PRN (21:56)
[2021-07-23 22:06] LABS: CALCIUM, TOTAL 7.5 mg/dL (8.8-10.5); CREATININE 0.99 mg/dL (0.60-1.30); POTASSIUM 3.7 mmol/L (3.5-5.1)
[2021-07-24] VITALS: BP 131/38
[2021-07-24] MEDS: HEPARIN SODIUM,PORCINE 5,000 UNITS/ML VIAL SQ SCH ×3 (02:11→15:01)
[2021-07-24 04:00] VITALS: BP 130/42
[2021-07-24] MEDS: CISATRACURIUM BESYLATE 100 MG in DEXTROSE 5%-WATER 240 ML IV PRN ×2 (04:16→09:07)
[2021-07-24 06:59] LABS: BASOPHILS % (AUTO) 0.1 % (0.0-2.0); EOSINOPHILS % (AUTO) 0 % (1.0-6.0); HEMATOCRIT 35.5 % (36-46); HEMOGLOBIN 12.4 g/dL (12.0-16.0); LYMPHOCYTES # (AUTO) 0.4 K/uL (1.0-4.8); LYMPHOCYTES % (AUTO) 11.2 % (22.0-44.0); MEAN CORPUSCULAR HEMOGLOBIN 32.6 pg (26.0-34.0); MEAN CORPUSCULAR HGB CONC 34.8 G/dL (31.0-37.0); MEAN CORPUSCULAR VOLUME 94 fL (80-100); MONOCYTES # (AUTO) 0.4 K/uL (0.1-1.0); MONOCYTES % (AUTO) 9.5 % (2.0-9.0); NEUTROPHILS % (AUTO) 79.2 % (40.0-70.0); PLATELET COUNT (AUTO) 88 K/uL (150-450); RED BLOOD CELL COUNT(AUTO) 3.79 MIL/uL (4.00-5.20); RED CELL DISTRIBUTION WIDTH 13.2 % (11.5-14.5)
[2021-07-24 08:00] VITALS: BP 134/43
[2021-07-24 08:21] LABS: ANION GAP 12 mmol/L (8-16); C-REACTIVE PROTEIN QUANT 4.39 mg/dL (0.00-0.30); CALCIUM, TOTAL 8.1 mg/dL (8.8-10.5); CARBON DIOXIDE 20 mmol/L (22-29); CHLORIDE 105 mmol/L (98-107); CREATININE 0.83 mg/dL (0.60-1.30); FERRITIN 5604 ng/mL (8-252); GLUCOSE,RANDOM 169 mg/dL (70-110); LACTATE DEHYDROGENASE 360 U/L (81-234); POTASSIUM 3.2 mmol/L (3.5-5.1); SODIUM SERUM 137 mmol/L (136-145); UREA NITROGEN, BLOOD 20 mg/dL (7-18)
[2021-07-24 08:22] LABS: GLOMERULAR FILTR. RATE CALC > 60 mL/min (>60)
[2021-07-24] MEDS: METOPROLOL TARTRATE 50 MG TABLET PO SCH ×2 (09:00→21:00)
[2021-07-24] MEDS: PANTOPRAZOLE SODIUM 40 MG DR TABLET PO SCH (09:00)
[2021-07-24] MEDS: OXYGEN THERAPY IH SCH ×2 (09:03→20:03)
[2021-07-24] MEDS: CefTRIAXone SODIUM 2 GM in DEXTROSE 5%-WATER 50 ML IV SCH (09:03)
[2021-07-24] MEDS: DEXAMETHASONE SOD PHOS 4 MG/ML VIAL IVP SCH (09:04)
[2021-07-24] MEDS: DOXYCYCLINE HYCLATE 100 MG in DEXTROSE 5%-WATER 100 ML IV SCH ×2 (09:04→21:53)
[2021-07-24] MEDS: DOCUSATE SODIUM 100 MG CAPSULE PO SCH ×2 (09:05→21:53)
[2021-07-24] MEDS: ATORVASTATIN CALCIUM 20 MG TABLET PO SCH (09:05)
[2021-07-24] MEDS: TICAGRELOR 90 MG TABLET PO SCH ×2 (09:05→21:53)
[2021-07-24] MEDS: ASPIRIN 81 MG DR TABLET PO SCH (09:05)
[2021-07-24] MEDS: REMDESIVIR 100 MG in SODIUM CHLORIDE 0.9% 250 ML IV SCH (09:07)
[2021-07-24 12:00] VITALS: BP 113/40
[2021-07-24] MEDS ORDERED: SODIUM CHLORIDE 0.9% 1,000 ML IV ONE (12:00)
[2021-07-24] MEDS ORDERED: CISATRACURIUM BESYLATE 100 MG in DEXTROSE 5%-WATER 240 ML IV PRN (12:45)
[2021-07-24] MEDS: PROPOFOL 1000 MG/ISO-OSM 100 ML IV PRN ×2 (13:41→22:11)
[2021-07-24] MEDS: FentaNYL CIT 1000MCG/0.9% NACL 100 ML IV PRN (13:43)
[2021-07-24] MEDS ORDERED: POTASSIUM CHL 10 MEQ/WATER 50 ML IV PRN ×2 (14:45)
[2021-07-24] MEDS: POTASSIUM CHL 10 MEQ/WATER 50 ML IV PRN ×3 (14:50→17:27)
[2021-07-24 16:00] VITALS: BP 129/45
[2021-07-24 16:14] LABS: ABG BASE EXCESS -5.6 mmol/L (-2.0-3.0); ABG CARBOXYHEMOGLOBIN 0.2 % (0.0-1.5); ABG HCO3 20.2 mmol/L (22.0-26.0); ABG METHEMOGLOBIN 0.3 % (0.0-1.5); ABG OXYGEN CONTENT 17.7 mL/dL (15.0-23.0); ABG OXYGEN SATURATION 98.9 % (95.0-98.0); ABG OXYHEMOGLOBIN 98.4 % (94.0-100.0); ABG PCO2 41 mmHg (35-45); ABG PH 7.316 (7.35-7.450); ABG TOTAL HEMOGLOBIN 12.6 G/dL (12.0-18.0); PO2, ARTERIAL BG 145.5 mmHg (71.0-79.0); SOURCE, BLOOD GAS ARTERIAL
[2021-07-24 16:15] LABS: ABG A-A DIFF O2 272.2 mmHg (10-20.0); SITE, BLOOD GAS ARTERIAL LINE
[2021-07-24 16:16] LABS: O2 DEVICE,BLOOD GAS VENT (ROOM AIR); PEEP,BG 8 cm H2O; VT, ABG 400 ml
[2021-07-24 20:00] VITALS: BP 115/38
[2021-07-25] VITALS: BP 114/44
[2021-07-25] MEDS: HEPARIN SODIUM,PORCINE 5,000 UNITS/ML VIAL SQ SCH ×3 (01:39→15:51)
[2021-07-25] MEDS: FentaNYL CIT 1000MCG/0.9% NACL 100 ML IV PRN ×2 (01:40→18:35)
[2021-07-25 04:00] VITALS: BP 123/36
[2021-07-25 05:14] LABS: EOSINOPHILS % (AUTO) 0 % (1.0-6.0); HEMATOCRIT 33.7 % (36-46); HEMOGLOBIN 11.5 g/dL (12.0-16.0); LYMPHOCYTES # (AUTO) 0.6 K/uL (1.0-4.8); LYMPHOCYTES % (AUTO) 5.1 % (22.0-44.0); MEAN CORPUSCULAR HGB CONC 34.3 G/dL (31.0-37.0); MEAN CORPUSCULAR VOLUME 93 fL (80-100); MONOCYTES # (AUTO) 1.1 K/uL (0.1-1.0); MONOCYTES % (AUTO) 10.2 % (2.0-9.0); NEUTROPHILS # (AUTO) 9.5 K/uL (1.8-7.7); NEUTROPHILS % (AUTO) 84.7 % (40.0-70.0); PLATELET COUNT (AUTO) 158 K/uL (150-450); RED BLOOD CELL COUNT(AUTO) 3.61 MIL/uL (4.00-5.20); RED CELL DISTRIBUTION WIDTH 13.6 % (11.5-14.5)
[2021-07-25 07:11] LABS: C-REACTIVE PROTEIN QUANT 2.36 mg/dL (0.00-0.30); CALCIUM, TOTAL 7.6 mg/dL (8.8-10.5); CREATININE 1.51 mg/dL (0.60-1.30); POTASSIUM 4.4 mmol/L (3.5-5.1)
[2021-07-25 08:00] VITALS: BP 116/37
[2021-07-25] MEDS: ETHYL ALCOHOL 62% ANTISEPTIC NASAL INHALANT 0.6 ML AMPUL NASAL SCH ×2 (08:09→20:22)
[2021-07-25] MEDS: DOXYCYCLINE HYCLATE 100 MG in DEXTROSE 5%-WATER 100 ML IV SCH ×2 (08:09→20:24)
[2021-07-25] MEDS: CefTRIAXone SODIUM 2 GM in DEXTROSE 5%-WATER 50 ML IV SCH (08:10)
[2021-07-25] MEDS: PANTOPRAZOLE SODIUM 40 MG DR TABLET PO SCH (08:10)
[2021-07-25] MEDS: TICAGRELOR 90 MG TABLET PO SCH ×2 (08:10→20:22)
[2021-07-25] MEDS: ATORVASTATIN CALCIUM 20 MG TABLET PO SCH (08:10)
[2021-07-25] MEDS: METOPROLOL TARTRATE 50 MG TABLET PO SCH ×2 (08:10→20:28)
[2021-07-25] MEDS: ASPIRIN 81 MG DR TABLET PO SCH (08:11)
[2021-07-25] MEDS: DEXAMETHASONE SOD PHOS 4 MG/ML VIAL IVP SCH (08:12)
[2021-07-25] MEDS: OXYGEN THERAPY IH SCH ×2 (08:13→20:26)
[2021-07-25] MEDS: DOCUSATE SODIUM 100 MG CAPSULE PO SCH ×2 (08:15→20:22)
[2021-07-25 09:13] LABS: ABG BASE EXCESS -7.2 mmol/L (-2.0-3.0); ABG CARBOXYHEMOGLOBIN 0.1 % (0.0-1.5); ABG HCO3 19.3 mmol/L (22.0-26.0); ABG METHEMOGLOBIN 0.3 % (0.0-1.5); ABG OXYGEN CONTENT 16.1 mL/dL (15.0-23.0); ABG OXYHEMOGLOBIN 96.6 % (94.0-100.0); ABG PCO2 33 mmHg (35-45); ABG PH 7.357 (7.35-7.450); ABG TOTAL HEMOGLOBIN 11.8 G/dL (12.0-18.0); PO2, ARTERIAL BG 85.3 mmHg (71.0-79.0); SOURCE, BLOOD GAS ARTERIAL; TEMPERATURE, FAHRENHEIT, BG 98.5 FAHREN (96.0-98.6)
[2021-07-25 09:14] LABS: SITE, BLOOD GAS ARTERIAL LINE
[2021-07-25 09:15] LABS: O2 DEVICE,BLOOD GAS VENTILATOR (ROOM AIR); PEEP,BG 5 cm H2O; VT, ABG 400 ml
[2021-07-25] MEDS ORDERED: POTASSIUM CHLORIDE 10% 40 MEQ/30 ML LIQUID UDCUP PO ONE (10:00)
[2021-07-25] MEDS: REMDESIVIR 100 MG in SODIUM CHLORIDE 0.9% 250 ML IV SCH (10:01)
[2021-07-25 12:00] VITALS: BP 126/46
[2021-07-25] MEDS: NOREPINEPHRINE 4 MG/D5%-WATER 250 ML IV PRN (12:23)
[2021-07-25] MEDS: RINGERS SOLUTION,LACTATED 1,000 ML IV SCH (13:07)
[2021-07-25] MEDS: ALBUMIN HUMAN 25%-25GM/100ML 100 ML IV SCH ×2 (13:13→20:27)
[2021-07-25] MEDS: DEXMEDETOMIDINE HCL 400 MCG in SODIUM CHLORIDE 0.9% 96 ML IV PRN ×2 (13:17→20:23)
[2021-07-25 16:00] VITALS: BP 132/43
[2021-07-25 20:00] VITALS: BP 138/46
[2021-07-25] MEDS: NOREPINEPHRINE BITARTRATE 8 MG in DEXTROSE 5%-WATER 242 ML IV PRN (20:25)
[2021-07-26] VITALS: BP 119/40
[2021-07-26] MEDS: HEPARIN SODIUM,PORCINE 5,000 UNITS/ML VIAL SQ SCH ×3 (00:17→16:46)
[2021-07-26] MEDS: RINGERS SOLUTION,LACTATED 1,000 ML IV SCH ×2 (01:53→14:46)
[2021-07-26] MEDS: DEXMEDETOMIDINE HCL 400 MCG in SODIUM CHLORIDE 0.9% 96 ML IV PRN ×3 (03:09→17:28)
[2021-07-26 04:00] VITALS: BP 149/41
[2021-07-26] MEDS: ALBUMIN HUMAN 25%-25GM/100ML 100 ML IV SCH (04:19)
[2021-07-26 06:36] LABS: EOSINOPHILS % (AUTO) 0 % (1.0-6.0); HEMATOCRIT 32.6 % (36-46); HEMOGLOBIN 11.2 g/dL (12.0-16.0); LYMPHOCYTES # (AUTO) 0.5 K/uL (1.0-4.8); LYMPHOCYTES % (AUTO) 3.9 % (22.0-44.0); MEAN CORPUSCULAR HEMOGLOBIN 32.3 pg (26.0-34.0); MEAN CORPUSCULAR HGB CONC 34.2 G/dL (31.0-37.0); MEAN CORPUSCULAR VOLUME 95 fL (80-100); MONOCYTES # (AUTO) 1.2 K/uL (0.1-1.0); MONOCYTES % (AUTO) 9.9 % (2.0-9.0); NEUTROPHILS # (AUTO) 10.1 K/uL (1.8-7.7); PLATELET COUNT (AUTO) 127 K/uL (150-450); RED BLOOD CELL COUNT(AUTO) 3.45 MIL/uL (4.00-5.20)
[2021-07-26 07:03] LABS: NEUTROPHILS % (AUTO) 86.2 % (40.0-70.0)
[2021-07-26 07:25] LABS: ALBUMIN 2.7 g/dL (3.4-5.0); BILIRUBIN,TOTAL 0.5 mg/dL (0.1-1.0); C-REACTIVE PROTEIN QUANT 1.59 mg/dL (0.00-0.30); CALCIUM, TOTAL 8.2 mg/dL (8.8-10.5); CREATININE 1.26 mg/dL (0.60-1.30); MAGNESIUM 2.3 mg/dL (1.80-2.40); PHOSPHORUS 3.5 mg/dL (2.5-4.9); POTASSIUM 4.1 mmol/L (3.5-5.1); TOTAL PROTEIN, SERUM 6.4 g/dL (6.4-8.2)
[2021-07-26] MEDS: CefTRIAXone SODIUM 2 GM in DEXTROSE 5%-WATER 50 ML IV SCH (07:59)
[2021-07-26] MEDS: OXYGEN THERAPY IH SCH ×2 (07:59→20:21)
[2021-07-26 08:00] VITALS: BP 142/42
[2021-07-26] MEDS: DOXYCYCLINE HYCLATE 100 MG in DEXTROSE 5%-WATER 100 ML IV SCH ×2 (08:00→20:20)
[2021-07-26] MEDS: ASPIRIN 81 MG DR TABLET PO SCH (08:01)
[2021-07-26] MEDS: TICAGRELOR 90 MG TABLET PO SCH ×2 (08:01→20:20)
[2021-07-26] MEDS: DOCUSATE SODIUM 100 MG CAPSULE PO SCH ×2 (08:01→20:20)
[2021-07-26] MEDS: ATORVASTATIN CALCIUM 20 MG TABLET PO SCH (08:01)
[2021-07-26] MEDS: PANTOPRAZOLE SODIUM 40 MG DR TABLET PO SCH (08:02)
[2021-07-26] MEDS: DEXAMETHASONE SOD PHOS 4 MG/ML VIAL IVP SCH (08:02)
[2021-07-26] MEDS: METOPROLOL TARTRATE 50 MG TABLET PO SCH ×2 (08:03→20:20)
[2021-07-26] MEDS: ETHYL ALCOHOL 62% ANTISEPTIC NASAL INHALANT 0.6 ML AMPUL NASAL SCH ×2 (08:04→20:21)
[2021-07-26] MEDS ORDERED: SODIUM CHLORIDE 0.9% 250 ML IV ONE (08:21)
[2021-07-26] MEDS: FentaNYL CIT 1000MCG/0.9% NACL 100 ML IV PRN ×2 (09:37→21:34)
[2021-07-26] MEDS: REMDESIVIR 100 MG in SODIUM CHLORIDE 0.9% 250 ML IV SCH (10:29)
[2021-07-26 11:47] LABS: APPEARANCE,URINE CLEAR (CLEAR); BILIRUBIN,URINE NEGATIVE (NEGATIVE); GLUCOSE, URINE (UA) NEGATIVE (NEGATIVE); KETONES,URINE NEGATIVE (NEGATIVE); LEUKOCYTE ESTERASE ,URINE NEGATIVE (NEGATIVE); NITRATE,URINE NEGATIVE (NEGATIVE); OCCULT BLOOD,URINE NEGATIVE (NEGATIVE); PROTEIN,URINE TRACE (NEGATIVE); UROBILINOGEN,URINE 0.2 mg/dL (<=1.0)
[2021-07-26 11:50] LABS: PROTEIN,URINE RANDOM 35 mg/dL (0-11.9); SODIUM,URINE RANDOM 11 mmol/l (20-110)
[2021-07-26 11:51] LABS: CREATININE,URINE RANDOM 46.1 mg/dL (30.0-125.0)
[2021-07-26 12:00] VITALS: BP 138/37
[2021-07-26] MEDS: PROPOFOL 1000 MG/ISO-OSM 100 ML IV PRN ×2 (15:16→15:23)
[2021-07-26 16:00] VITALS: BP 149/44
[2021-07-26 16:27] LABS: ABG BASE EXCESS -8.9 mmol/L (-2.0-3.0); ABG CARBOXYHEMOGLOBIN 0.5 % (0.0-1.5); ABG HCO3 18.3 mmol/L (22.0-26.0); ABG METHEMOGLOBIN 0.3 % (0.0-1.5); ABG OXYGEN CONTENT 17.5 mL/dL (15.0-23.0); ABG OXYGEN SATURATION 97.3 % (95.0-98.0); ABG OXYHEMOGLOBIN 96.5 % (94.0-100.0); ABG PCO2 28 mmHg (35-45); ABG PH 7.382 (7.35-7.450); ABG TOTAL HEMOGLOBIN 12.8 G/dL (12.0-18.0); PO2, ARTERIAL BG 84.7 mmHg (71.0-79.0); SOURCE, BLOOD GAS ARTERIAL; TEMPERATURE, FAHRENHEIT, BG 95.4 FAHREN (96.0-98.6)
[2021-07-26 16:28] LABS: SITE, BLOOD GAS ARTERIAL LINE
[2021-07-26 16:29] LABS: ABG A-A DIFF O2 242.6 mmHg (10-20.0); O2 DEVICE,BLOOD GAS VENT (ROOM AIR); PEEP,BG 5 cm H2O; VT, ABG 400 ml
[2021-07-26 20:00] VITALS: BP 121/42
[2021-07-27] VITALS: BP 126/46
[2021-07-27] MEDS: HEPARIN SODIUM,PORCINE 5,000 UNITS/ML VIAL SQ SCH ×4 (00:17→23:02)
[2021-07-27] MEDS: DEXMEDETOMIDINE HCL 400 MCG in SODIUM CHLORIDE 0.9% 96 ML IV PRN ×4 (00:18→22:39)
[2021-07-27 04:00] VITALS: BP 136/48
[2021-07-27] MEDS: RINGERS SOLUTION,LACTATED 1,000 ML IV SCH ×2 (04:18→17:07)
[2021-07-27 06:46] LABS: ALBUMIN 2.1 g/dL (3.4-5.0); BILIRUBIN,TOTAL 0.4 mg/dL (0.1-1.0); C-REACTIVE PROTEIN QUANT 2.2 mg/dL (0.00-0.30); CALCIUM, TOTAL 8.7 mg/dL (8.8-10.5); CREATININE 1.08 mg/dL (0.60-1.30); POTASSIUM 4.2 mmol/L (3.5-5.1); TOTAL PROTEIN, SERUM 5.4 g/dL (6.4-8.2)
[2021-07-27 08:00] VITALS: BP 133/48
[2021-07-27] MEDS: OXYGEN THERAPY IH SCH ×2 (08:05→19:59)
[2021-07-27] MEDS: ETHYL ALCOHOL 62% ANTISEPTIC NASAL INHALANT 0.6 ML AMPUL NASAL SCH ×2 (08:05→21:03)
[2021-07-27] MEDS: ASPIRIN 81 MG DR TABLET PO SCH (08:06)
[2021-07-27] MEDS: DEXAMETHASONE SOD PHOS 4 MG/ML VIAL IVP SCH (08:06)
[2021-07-27] MEDS: ATORVASTATIN CALCIUM 20 MG TABLET PO SCH (08:06)
[2021-07-27] MEDS: TICAGRELOR 90 MG TABLET PO SCH ×2 (08:07→21:03)
[2021-07-27] MEDS: DOCUSATE SODIUM 100 MG CAPSULE PO SCH (08:07)
[2021-07-27] MEDS: METOPROLOL TARTRATE 50 MG TABLET PO SCH ×2 (08:07→21:00)
[2021-07-27] MEDS: DOXYCYCLINE HYCLATE 100 MG in DEXTROSE 5%-WATER 100 ML IV SCH ×2 (08:09→21:04)
[2021-07-27] MEDS: CefTRIAXone SODIUM 2 GM in DEXTROSE 5%-WATER 50 ML IV SCH (08:09)
[2021-07-27] MEDS: DOCUSATE SODIUM 100 MG/10 ML LIQUID UDCUP NG SCH ×2 (08:19→21:03)
[2021-07-27] MEDS: PANTOPRAZOLE SODIUM 40 MG/VIAL IVP SCH (08:19)
[2021-07-27 08:23] LABS: ABG BASE EXCESS -5.4 mmol/L (-2.0-3.0); ABG CARBOXYHEMOGLOBIN 0.3 % (0.0-1.5); ABG HCO3 20.7 mmol/L (22.0-26.0); ABG METHEMOGLOBIN 0.3 % (0.0-1.5); ABG OXYGEN CONTENT 17.4 mL/dL (15.0-23.0); ABG OXYGEN SATURATION 94.8 % (95.0-98.0); ABG OXYHEMOGLOBIN 94.2 % (94.0-100.0); ABG PCO2 33 mmHg (35-45); ABG PH 7.389 (7.35-7.450); ABG TOTAL HEMOGLOBIN 13.1 G/dL (12.0-18.0); PO2, ARTERIAL BG 74.3 mmHg (71.0-79.0); SITE, BLOOD GAS ARTERIAL LINE; SOURCE, BLOOD GAS ARTERIAL; TEMPERATURE, FAHRENHEIT, BG 98.6 FAHREN (96.0-98.6)
[2021-07-27 08:24] LABS: O2 DEVICE,BLOOD GAS VENTILATOR (ROOM AIR); PEEP,BG 5 cm H2O; VT, ABG 400 ml
[2021-07-27] MEDS: REMDESIVIR 100 MG in SODIUM CHLORIDE 0.9% 250 ML IV SCH (10:08)
[2021-07-27 11:13] LABS: ABG BASE EXCESS -7.2 mmol/L (-2.0-3.0); ABG CARBOXYHEMOGLOBIN 0.3 % (0.0-1.5); ABG HCO3 19.7 mmol/L (22.0-26.0); ABG METHEMOGLOBIN 0.3 % (0.0-1.5); ABG OXYGEN CONTENT 17.4 mL/dL (15.0-23.0); ABG OXYGEN SATURATION 94.1 % (95.0-98.0); ABG OXYHEMOGLOBIN 93.5 % (94.0-100.0); ABG PCO2 25 mmHg (35-45); ABG PH 7.451 (7.35-7.450); ABG TOTAL HEMOGLOBIN 13.2 G/dL (12.0-18.0); PO2, ARTERIAL BG 57.1 mmHg (71.0-79.0); SOURCE, BLOOD GAS ARTERIAL; TEMPERATURE, FAHRENHEIT, BG 94.3 FAHREN (96.0-98.6)
[2021-07-27 11:14] LABS: O2 DEVICE,BLOOD GAS VENTILATOR (ROOM AIR); SITE, BLOOD GAS ARTLINE; VENT MODE, BG CPAP/PS (ROOM AIR)
[2021-07-27 11:15] LABS: CPAP, BG 0 cm H2O; PRESSURE SUPPORT, BG 8 cm H2O; SPONTANEOUS VT, BG 632 ml
[2021-07-27 12:00] VITALS: BP 152/55
[2021-07-27] MEDS: FentaNYL CIT 1000MCG/0.9% NACL 100 ML IV PRN ×2 (12:11→22:39)
[2021-07-27] MEDS: PROPOFOL 1000 MG/ISO-OSM 100 ML IV PRN (15:11)
[2021-07-27 16:00] VITALS: BP 115/40
[2021-07-27 20:00] VITALS: BP 173/64
[2021-07-28] VITALS: BP 140/39
[2021-07-28 04:00] VITALS: BP 137/43
[2021-07-28] MEDS: RINGERS SOLUTION,LACTATED 1,000 ML IV SCH ×2 (05:59→18:42)
[2021-07-28] MEDS: DEXMEDETOMIDINE HCL 400 MCG in SODIUM CHLORIDE 0.9% 96 ML IV PRN ×3 (07:38→23:41)
[2021-07-28 08:00] VITALS: BP 157/46
[2021-07-28] MEDS: ATORVASTATIN CALCIUM 20 MG TABLET PO SCH (09:00)
[2021-07-28] MEDS: DOCUSATE SODIUM 100 MG/10 ML LIQUID UDCUP NG SCH ×2 (09:26→22:10)
[2021-07-28] MEDS: ETHYL ALCOHOL 62% ANTISEPTIC NASAL INHALANT 0.6 ML AMPUL NASAL SCH ×2 (09:27→22:11)
[2021-07-28] MEDS: ASPIRIN 81 MG DR TABLET PO SCH (09:27)
[2021-07-28] MEDS: TICAGRELOR 90 MG TABLET PO SCH ×2 (09:28→22:11)
[2021-07-28] MEDS: METOPROLOL TARTRATE 50 MG TABLET PO SCH ×2 (09:28→22:11)
[2021-07-28] MEDS: DEXAMETHASONE SOD PHOS 4 MG/ML VIAL IVP SCH (09:29)
[2021-07-28] MEDS: HEPARIN SODIUM,PORCINE 5,000 UNITS/ML VIAL SQ SCH ×3 (09:34→23:40)
[2021-07-28] MEDS: PANTOPRAZOLE SODIUM 40 MG/VIAL IVP SCH (09:41)
[2021-07-28] MEDS: CefTRIAXone SODIUM 2 GM in DEXTROSE 5%-WATER 50 ML IV SCH (10:13)
[2021-07-28] MEDS: DOXYCYCLINE HYCLATE 100 MG in DEXTROSE 5%-WATER 100 ML IV SCH ×2 (10:14→22:12)
[2021-07-28] MEDS: PROPOFOL 1000 MG/ISO-OSM 100 ML IV PRN ×2 (10:34→23:52)
[2021-07-28] MEDS: FentaNYL CIT 1000MCG/0.9% NACL 100 ML IV PRN ×2 (10:49→23:43)
[2021-07-28 12:00] VITALS: BP 177/58
[2021-07-28] MEDS: OXYGEN THERAPY IH SCH ×2 (13:22→22:11)
[2021-07-28 16:00] VITALS: BP 151/42
[2021-07-28 20:00] VITALS: BP 155/43
[2021-07-28] MEDS ORDERED: SODIUM CHLORIDE 0.9% 250 ML IV ONE (23:37)
[2021-07-29] VITALS: BP 177/54
[2021-07-29] MEDS: HYDROCODONE/ACETAMINOPHEN 5-325 MG TABLET PO PRN (03:33)
[2021-07-29 04:00] VITALS: BP 149/42
[2021-07-29] MEDS: DEXMEDETOMIDINE HCL 400 MCG in SODIUM CHLORIDE 0.9% 96 ML IV PRN ×2 (06:29→15:46)
[2021-07-29] MEDS: CefTRIAXone SODIUM 2 GM in DEXTROSE 5%-WATER 50 ML IV SCH (07:46)
[2021-07-29] MEDS: HEPARIN SODIUM,PORCINE 5,000 UNITS/ML VIAL SQ SCH ×3 (07:47→23:16)
[2021-07-29 08:00] VITALS: BP_SYST 109; BP_SYST 166; BP_DIAS 53; BP_DIAS 85
[2021-07-29] MEDS: PANTOPRAZOLE SODIUM 40 MG/VIAL IVP SCH (08:39)
[2021-07-29] MEDS: DEXAMETHASONE SOD PHOS 4 MG/ML VIAL IVP SCH (08:40)
[2021-07-29] MEDS: ASPIRIN 81 MG DR TABLET PO SCH (08:41)
[2021-07-29] MEDS: TICAGRELOR 90 MG TABLET PO SCH ×2 (08:41→20:51)
[2021-07-29] MEDS: METOPROLOL TARTRATE 50 MG TABLET PO SCH ×2 (08:41→20:51)
[2021-07-29] MEDS: ATORVASTATIN CALCIUM 20 MG TABLET PO SCH (08:41)
[2021-07-29] MEDS: OXYGEN THERAPY IH SCH ×2 (08:41→20:51)
[2021-07-29] MEDS: PROPOFOL 1000 MG/ISO-OSM 100 ML IV PRN (08:42)
[2021-07-29] MEDS: DOXYCYCLINE HYCLATE 100 MG in DEXTROSE 5%-WATER 100 ML IV SCH ×2 (08:43→20:52)
[2021-07-29] MEDS: RINGERS SOLUTION,LACTATED 1,000 ML IV SCH ×2 (08:43→23:13)
[2021-07-29] MEDS: ETHYL ALCOHOL 62% ANTISEPTIC NASAL INHALANT 0.6 ML AMPUL NASAL SCH ×2 (08:45→20:51)
[2021-07-29] MEDS: DOCUSATE SODIUM 100 MG/10 ML LIQUID UDCUP NG SCH ×2 (08:46→20:51)
[2021-07-29 12:00] VITALS: BP 161/57
[2021-07-29 13:36] LABS: ABG BASE EXCESS -4.7 mmol/L (-2.0-3.0); ABG CARBOXYHEMOGLOBIN 0.4 % (0.0-1.5); ABG HCO3 21.4 mmol/L (22.0-26.0); ABG METHEMOGLOBIN 0.3 % (0.0-1.5); ABG OXYGEN CONTENT 14.5 mL/dL (15.0-23.0); ABG OXYGEN SATURATION 95.9 % (95.0-98.0); ABG OXYHEMOGLOBIN 95.2 % (94.0-100.0); ABG PCO2 27 mmHg (35-45); ABG PH 7.463 (7.35-7.450); ABG TOTAL HEMOGLOBIN 10.8 G/dL (12.0-18.0); CPAP, BG 5 cm H2O; O2 DEVICE,BLOOD GAS VENTILATOR (ROOM AIR); PO2, ARTERIAL BG 74.4 mmHg (71.0-79.0); PRESSURE SUPPORT, BG 8 cm H2O; SITE, BLOOD GAS ARTERIAL LINE; SOURCE, BLOOD GAS ARTERIAL; SPONTANEOUS VT, BG 598 ml; TEMPERATURE, FAHRENHEIT, BG 96.9 FAHREN (96.0-98.6); VENT MODE, BG CPAP (ROOM AIR)
[2021-07-29 13:37] LABS: PEEP,BG 0 cm H2O
[2021-07-29 16:00] VITALS: BP 155/48
[2021-07-29 20:00] VITALS: BP 110/56
[2021-07-29] MEDS ORDERED: SODIUM CHLORIDE 0.9% 500 ML IV ONE (20:12)
[2021-07-29] MEDS: QUEtiapine FUMARATE 25 MG TABLET NG SCH (20:51)
[2021-07-29] MEDS: FentaNYL CIT 1000MCG/0.9% NACL 100 ML IV PRN (23:36)
[2021-07-30] VITALS: BP 127/42
[2021-07-30] MEDS: DEXMEDETOMIDINE HCL 400 MCG in SODIUM CHLORIDE 0.9% 96 ML IV PRN ×3 (03:00→21:48)
[2021-07-30 04:00] VITALS: BP 133/42
[2021-07-30] MEDS: PROPOFOL 1000 MG/ISO-OSM 100 ML IV PRN ×2 (05:07→16:57)
[2021-07-30 06:28] LABS: ANION GAP 6 mmol/L (8-16); CALCIUM, TOTAL 8.3 mg/dL (8.8-10.5); CARBON DIOXIDE 23 mmol/L (22-29); CHLORIDE 112 mmol/L (98-107); CREATININE 0.87 mg/dL (0.60-1.30); GLUCOSE,RANDOM 224 mg/dL (70-110); POTASSIUM 3.9 mmol/L (3.5-5.1); SODIUM SERUM 141 mmol/L (136-145); UREA NITROGEN, BLOOD 42 mg/dL (7-18)
[2021-07-30 06:39] LABS: GLOMERULAR FILTR. RATE CALC > 60 mL/min (>60)
[2021-07-30 08:00] VITALS: BP 137/42
[2021-07-30] MEDS: CefTRIAXone SODIUM 2 GM in DEXTROSE 5%-WATER 50 ML IV SCH (08:09)
[2021-07-30] MEDS: HEPARIN SODIUM,PORCINE 5,000 UNITS/ML VIAL SQ SCH ×2 (08:10→16:16)
[2021-07-30] MEDS: OXYGEN THERAPY IH SCH ×2 (08:11→20:57)
[2021-07-30] MEDS: DOXYCYCLINE HYCLATE 100 MG in DEXTROSE 5%-WATER 100 ML IV SCH ×2 (08:38→21:21)
[2021-07-30] MEDS: ETHYL ALCOHOL 62% ANTISEPTIC NASAL INHALANT 0.6 ML AMPUL NASAL SCH ×2 (08:39→21:24)
[2021-07-30] MEDS: ASPIRIN 81 MG DR TABLET PO SCH (08:40)
[2021-07-30] MEDS: DEXAMETHASONE SOD PHOS 4 MG/ML VIAL IVP SCH (08:40)
[2021-07-30] MEDS: DOCUSATE SODIUM 100 MG/10 ML LIQUID UDCUP NG SCH ×2 (08:40→21:22)
[2021-07-30] MEDS: PANTOPRAZOLE SODIUM 40 MG/VIAL IVP SCH (08:40)
[2021-07-30] MEDS: TICAGRELOR 90 MG TABLET PO SCH ×2 (08:41→21:21)
[2021-07-30] MEDS: ATORVASTATIN CALCIUM 20 MG TABLET PO SCH (08:41)
[2021-07-30] MEDS: METOPROLOL TARTRATE 50 MG TABLET PO SCH ×2 (08:41→21:22)
[2021-07-30] MEDS: RINGERS SOLUTION,LACTATED 1,000 ML IV SCH (10:31)
[2021-07-30 10:53] LABS: ABG CARBOXYHEMOGLOBIN 1.5 % (0.0-1.5); ABG HCO3 19.3 mmol/L (22.0-26.0); ABG METHEMOGLOBIN 0.3 % (0.0-1.5); ABG OXYGEN CONTENT 9.9 mL/dL (15.0-23.0); ABG OXYGEN SATURATION 94.1 % (95.0-98.0); ABG OXYHEMOGLOBIN 92.4 % (94.0-100.0); ABG PCO2 27 mmHg (35-45); ABG PH 7.429 (7.35-7.450); PO2, ARTERIAL BG 67.8 mmHg (71.0-79.0); SOURCE, BLOOD GAS ARTERIAL; TEMPERATURE, FAHRENHEIT, BG 97.5 FAHREN (96.0-98.6)
[2021-07-30 10:54] LABS: ABG A-A DIFF O2 187.1 mmHg (10-20.0); ABG TOTAL HEMOGLOBIN 7.5 G/dL (12.0-18.0); O2 DEVICE,BLOOD GAS VENTILATOR (ROOM AIR); SITE, BLOOD GAS ARTERIAL LINE
[2021-07-30 10:55] LABS: PEEP,BG 0 cm H2O; PRESSURE SUPPORT, BG 5 cm H2O; SPONTANEOUS VT, BG 488 ml; VENT MODE, BG Press. Support Vent. (ROOM AIR)
[2021-07-30 12:00] VITALS: BP 167/50
[2021-07-30 16:00] VITALS: BP 160/42
[2021-07-30 20:00] VITALS: BP 170/44
[2021-07-30] MEDS: QUEtiapine FUMARATE 25 MG TABLET NG SCH (21:22)
[2021-07-30] MEDS: ACETAMINOPHEN 325 MG TABLET PO PRN (21:22)
[2021-07-31] VITALS (17 sets, daily range): BP systolic 115–186; BP diastolic 31–55
[2021-07-31] MEDS: HEPARIN SODIUM,PORCINE 5,000 UNITS/ML VIAL SQ SCH ×2 (02:00→09:03)
[2021-07-31] MEDS: RINGERS SOLUTION,LACTATED 1,000 ML IV SCH ×2 (02:01→16:09)
[2021-07-31 05:45] LABS: EOSINOPHILS % (AUTO) 0.1 % (1.0-6.0); LYMPHOCYTES # (AUTO) 0.4 K/uL (1.0-4.8); LYMPHOCYTES % (AUTO) 4.3 % (22.0-44.0); MEAN CORPUSCULAR HEMOGLOBIN 32.2 pg (26.0-34.0); MEAN CORPUSCULAR VOLUME 95 fL (80-100); MONOCYTES # (AUTO) 1.1 K/uL (0.1-1.0); MONOCYTES % (AUTO) 13.3 % (2.0-9.0); NEUTROPHILS # (AUTO) 6.9 K/uL (1.8-7.7); NEUTROPHILS % (AUTO) 82.3 % (40.0-70.0); PLATELET COUNT (AUTO) 87 K/uL (150-450); RED BLOOD CELL COUNT(AUTO) 1.74 MIL/uL (4.00-5.20); RED CELL DISTRIBUTION WIDTH 14.6 % (11.5-14.5)
[2021-07-31] MEDS: PROPOFOL 1000 MG/ISO-OSM 100 ML IV PRN ×2 (05:52→16:11)
[2021-07-31 05:58] LABS: ANION GAP 6 mmol/L (8-16); CALCIUM, TOTAL 8.5 mg/dL (8.8-10.5); CARBON DIOXIDE 23 mmol/L (22-29); CHLORIDE 113 mmol/L (98-107); CREATININE 0.86 mg/dL (0.60-1.30); GLUCOSE,RANDOM 166 mg/dL (70-110); POTASSIUM 4.4 mmol/L (3.5-5.1); SODIUM SERUM 142 mmol/L (136-145); UREA NITROGEN, BLOOD 46 mg/dL (7-18)
[2021-07-31 06:41] LABS: GLOMERULAR FILTR. RATE CALC > 60 mL/min (>60)
[2021-07-31 07:37] LABS: HEMOGLOBIN 5.6 g/dL (12.0-16.0)
[2021-07-31 07:38] LABS: HEMATOCRIT 16.5 % (36-46)
[2021-07-31 08:55] LABS: BASOPHILS % (AUTO) 0.1 % (0.0-2.0); EOSINOPHILS % (AUTO) 0.3 % (1.0-6.0); LYMPHOCYTES # (AUTO) 0.3 K/uL (1.0-4.8); LYMPHOCYTES % (AUTO) 4.8 % (22.0-44.0); MEAN CORPUSCULAR HEMOGLOBIN 32.2 pg (26.0-34.0); MEAN CORPUSCULAR VOLUME 95 fL (80-100); MONOCYTES # (AUTO) 0.9 K/uL (0.1-1.0); MONOCYTES % (AUTO) 12.2 % (2.0-9.0); NEUTROPHILS # (AUTO) 5.8 K/uL (1.8-7.7); NEUTROPHILS % (AUTO) 82.6 % (40.0-70.0); PLATELET COUNT (AUTO) 83 K/uL (150-450); RED BLOOD CELL COUNT(AUTO) 1.66 MIL/uL (4.00-5.20); RED CELL DISTRIBUTION WIDTH 14.3 % (11.5-14.5)
[2021-07-31] MEDS: OXYGEN THERAPY IH SCH ×2 (09:00→20:55)
[2021-07-31] MEDS: CefTRIAXone SODIUM 2 GM in DEXTROSE 5%-WATER 50 ML IV SCH (09:00)
[2021-07-31] MEDS: ASPIRIN 81 MG DR TABLET PO SCH (09:01)
[2021-07-31] MEDS: TICAGRELOR 90 MG TABLET PO SCH ×2 (09:01→21:22)
[2021-07-31] MEDS: ATORVASTATIN CALCIUM 20 MG TABLET PO SCH (09:02)
[2021-07-31] MEDS: ETHYL ALCOHOL 62% ANTISEPTIC NASAL INHALANT 0.6 ML AMPUL NASAL SCH ×2 (09:02→21:23)
[2021-07-31] MEDS: DOCUSATE SODIUM 100 MG/10 ML LIQUID UDCUP NG SCH ×2 (09:02→21:22)
[2021-07-31] MEDS: METOPROLOL TARTRATE 50 MG TABLET PO SCH ×2 (09:02→21:22)
[2021-07-31] MEDS: PANTOPRAZOLE SODIUM 40 MG/VIAL IVP SCH ×2 (09:03→21:22)
[2021-07-31] MEDS: DEXAMETHASONE SOD PHOS 4 MG/ML VIAL IVP SCH (09:03)
[2021-07-31 09:20] LABS: HEMATOCRIT 15.7 % (36-46); HEMOGLOBIN 5.3 g/dL (12.0-16.0)
[2021-07-31] MEDS: DOXYCYCLINE HYCLATE 100 MG in DEXTROSE 5%-WATER 100 ML IV SCH ×2 (09:26→21:12)
[2021-07-31] MEDS: DEXMEDETOMIDINE HCL 400 MCG in SODIUM CHLORIDE 0.9% 96 ML IV PRN ×2 (09:28→21:12)
[2021-07-31] MEDS ORDERED: IOHEXOL 350 MG/ML 100 ML VIAL ONE (11:03)
[2021-07-31] MEDS ORDERED: SODIUM CHLORIDE 0.9% 100 ML ONE (11:03)
[2021-07-31] MEDS ORDERED: SODIUM CHLORIDE 0.9% 500 ML IV ONE (11:36)
[2021-07-31] MEDS: FentaNYL CIT 1000MCG/0.9% NACL 100 ML IV PRN (16:10)
[2021-07-31 20:37] LABS: HEMATOCRIT 26.4 % (36-46); HEMOGLOBIN 9.3 g/dL (12.0-16.0)
[2021-07-31] MEDS: QUEtiapine FUMARATE 25 MG TABLET NG SCH (21:22)
[2021-08-01] VITALS: BP 153/38
[2021-08-01] MEDS: PROPOFOL 1000 MG/ISO-OSM 100 ML IV PRN ×4 (00:11→22:28)
[2021-08-01] MEDS: FentaNYL CIT 1000MCG/0.9% NACL 100 ML IV PRN ×3 (02:20→23:24)
[2021-08-01 04:00] VITALS: BP 168/40
[2021-08-01] MEDS: RINGERS SOLUTION,LACTATED 1,000 ML IV SCH ×2 (04:46→18:32)
[2021-08-01 06:00] VITALS: BP 150/37
[2021-08-01 06:27] LABS: BASOPHILS % (AUTO) 0.1 % (0.0-2.0); EOSINOPHILS % (AUTO) 0 % (1.0-6.0); HEMATOCRIT 26.4 % (36-46); HEMOGLOBIN 9.4 g/dL (12.0-16.0); LYMPHOCYTES # (AUTO) 0.3 K/uL (1.0-4.8); LYMPHOCYTES % (AUTO) 4.4 % (22.0-44.0); MEAN CORPUSCULAR HEMOGLOBIN 31.3 pg (26.0-34.0); MEAN CORPUSCULAR HGB CONC 35.5 G/dL (31.0-37.0); MEAN CORPUSCULAR VOLUME 88 fL (80-100); MONOCYTES # (AUTO) 0.9 K/uL (0.1-1.0); MONOCYTES % (AUTO) 12.5 % (2.0-9.0); NEUTROPHILS # (AUTO) 5.9 K/uL (1.8-7.7); PLATELET COUNT (AUTO) 84 K/uL (150-450); RED BLOOD CELL COUNT(AUTO) 2.99 MIL/uL (4.00-5.20); RED CELL DISTRIBUTION WIDTH 16.8 % (11.5-14.5)
[2021-08-01 06:36] LABS: ALANINE AMINOTRANSFERASE 20 U/L (12-78); ALBUMIN 1.7 g/dL (3.4-5.0); ALKALINE PHOSPHATASE 52 U/L (46-116); ANION GAP 6 mmol/L (8-16); ASPARTATE AMINOTRANSFERASE 18 U/L (15-37); BILIRUBIN,TOTAL 0.4 mg/dL (0.1-1.0); CALCIUM, TOTAL 8.6 mg/dL (8.8-10.5); CARBON DIOXIDE 23 mmol/L (22-29); CHLORIDE 114 mmol/L (98-107); CREATININE 0.77 mg/dL (0.60-1.30); GLUCOSE,RANDOM 153 mg/dL (70-110); POTASSIUM 4.2 mmol/L (3.5-5.1); SODIUM SERUM 143 mmol/L (136-145); TOTAL PROTEIN, SERUM 4.5 g/dL (6.4-8.2); UREA NITROGEN, BLOOD 38 mg/dL (7-18)
[2021-08-01 06:37] LABS: GLOMERULAR FILTR. RATE CALC > 60 mL/min (>60)
[2021-08-01] MEDS: DEXMEDETOMIDINE HCL 400 MCG in SODIUM CHLORIDE 0.9% 96 ML IV PRN ×2 (07:32→22:30)
[2021-08-01 08:00] VITALS: BP 168/44
[2021-08-01] MEDS: CefTRIAXone SODIUM 2 GM in DEXTROSE 5%-WATER 50 ML IV SCH (08:13)
[2021-08-01] MEDS: PANTOPRAZOLE SODIUM 40 MG/VIAL IVP SCH ×2 (08:46→20:36)
[2021-08-01] MEDS: ASPIRIN 81 MG DR TABLET PO SCH (08:46)
[2021-08-01] MEDS: METOPROLOL TARTRATE 50 MG TABLET PO SCH ×2 (08:46→20:36)
[2021-08-01] MEDS: ETHYL ALCOHOL 62% ANTISEPTIC NASAL INHALANT 0.6 ML AMPUL NASAL SCH ×2 (08:46→21:41)
[2021-08-01] MEDS: DEXAMETHASONE SOD PHOS 4 MG/ML VIAL IVP SCH (08:47)
[2021-08-01] MEDS: TICAGRELOR 90 MG TABLET PO SCH ×2 (08:47→20:36)
[2021-08-01] MEDS: DOCUSATE SODIUM 100 MG/10 ML LIQUID UDCUP NG SCH ×2 (08:47→20:36)
[2021-08-01] MEDS: ATORVASTATIN CALCIUM 20 MG TABLET PO SCH (08:47)
[2021-08-01] MEDS: DOXYCYCLINE HYCLATE 100 MG in DEXTROSE 5%-WATER 100 ML IV SCH ×2 (08:48→20:37)
[2021-08-01 12:00] VITALS: BP 161/38
[2021-08-01 16:00] VITALS: BP 155/38
[2021-08-01] MEDS: HydrALAZINE HCL 20 MG/ML VIAL IVP PRN (18:35)
[2021-08-01] MEDS: QUEtiapine FUMARATE 25 MG TABLET NG SCH (20:36)
[2021-08-01] MEDS: OXYGEN THERAPY IH SCH ×2 (20:37→20:58)
[2021-08-02] VITALS: BP 148/38
[2021-08-02 04:00] VITALS: BP 167/45
[2021-08-02] MEDS: RINGERS SOLUTION,LACTATED 1,000 ML IV SCH ×2 (04:02→15:24)
[2021-08-02] MEDS: PROPOFOL 1000 MG/ISO-OSM 100 ML IV PRN ×3 (04:51→16:50)
[2021-08-02] MEDS: DEXMEDETOMIDINE HCL 400 MCG in SODIUM CHLORIDE 0.9% 96 ML IV PRN ×2 (05:59→16:51)
[2021-08-02 06:15] LABS: BASOPHILS % (AUTO) 0.1 % (0.0-2.0); EOSINOPHILS % (AUTO) 0.1 % (1.0-6.0); HEMATOCRIT 28.2 % (36-46); HEMOGLOBIN 9.7 g/dL (12.0-16.0); LYMPHOCYTES # (AUTO) 0.4 K/uL (1.0-4.8); LYMPHOCYTES % (AUTO) 7.2 % (22.0-44.0); MEAN CORPUSCULAR HEMOGLOBIN 31.2 pg (26.0-34.0); MEAN CORPUSCULAR HGB CONC 34.5 G/dL (31.0-37.0); MEAN CORPUSCULAR VOLUME 91 fL (80-100); MONOCYTES # (AUTO) 0.8 K/uL (0.1-1.0); MONOCYTES % (AUTO) 12.4 % (2.0-9.0); NEUTROPHILS # (AUTO) 4.9 K/uL (1.8-7.7); NEUTROPHILS % (AUTO) 80.2 % (40.0-70.0); PLATELET COUNT (AUTO) 88 K/uL (150-450); RED BLOOD CELL COUNT(AUTO) 3.11 MIL/uL (4.00-5.20); RED CELL DISTRIBUTION WIDTH 17.3 % (11.5-14.5)
[2021-08-02 06:38] LABS: ALANINE AMINOTRANSFERASE 21 U/L (12-78); ALBUMIN 1.7 g/dL (3.4-5.0); ALKALINE PHOSPHATASE 55 U/L (46-116); ANION GAP 6 mmol/L (8-16); ASPARTATE AMINOTRANSFERASE 19 U/L (15-37); BILIRUBIN,TOTAL 0.4 mg/dL (0.1-1.0); CALCIUM, TOTAL 8.8 mg/dL (8.8-10.5); CARBON DIOXIDE 23 mmol/L (22-29); CHLORIDE 114 mmol/L (98-107); CREATININE 0.71 mg/dL (0.60-1.30); GLUCOSE,RANDOM 211 mg/dL (70-110); POTASSIUM 4.1 mmol/L (3.5-5.1); SODIUM SERUM 143 mmol/L (136-145); TOTAL PROTEIN, SERUM 4.9 g/dL (6.4-8.2); UREA NITROGEN, BLOOD 36 mg/dL (7-18)
[2021-08-02 06:52] LABS: GLOMERULAR FILTR. RATE CALC > 60 mL/min (>60)
[2021-08-02 08:00] VITALS: BP 198/62
[2021-08-02] MEDS: FentaNYL CIT 1000MCG/0.9% NACL 100 ML IV PRN ×2 (08:00→16:50)
[2021-08-02] MEDS: OXYGEN THERAPY IH SCH ×2 (08:28→20:15)
[2021-08-02] MEDS: CefTRIAXone SODIUM 2 GM in DEXTROSE 5%-WATER 50 ML IV SCH (08:29)
[2021-08-02] MEDS: ETHYL ALCOHOL 62% ANTISEPTIC NASAL INHALANT 0.6 ML AMPUL NASAL SCH ×2 (08:29→21:55)
[2021-08-02] MEDS: DOCUSATE SODIUM 100 MG/10 ML LIQUID UDCUP NG SCH ×2 (08:29→21:55)
[2021-08-02] MEDS: PANTOPRAZOLE SODIUM 40 MG/VIAL IVP SCH ×2 (08:29→21:56)
[2021-08-02] MEDS: DEXAMETHASONE SOD PHOS 4 MG/ML VIAL IVP SCH (08:30)
[2021-08-02] MEDS: METOPROLOL TARTRATE 50 MG TABLET PO SCH ×2 (08:30→21:00)
[2021-08-02] MEDS: ASPIRIN 81 MG DR TABLET PO SCH (08:30)
[2021-08-02] MEDS: TICAGRELOR 90 MG TABLET PO SCH ×2 (08:30→21:55)
[2021-08-02] MEDS: ATORVASTATIN CALCIUM 20 MG TABLET PO SCH (08:30)
[2021-08-02] MEDS ORDERED: SODIUM CHLORIDE 0.9% 500 ML IV ONE (08:57)
[2021-08-02] MEDS: DOXYCYCLINE HYCLATE 100 MG in DEXTROSE 5%-WATER 100 ML IV SCH ×2 (09:48→21:56)
[2021-08-02] MEDS: HydrALAZINE HCL 20 MG/ML VIAL IVP PRN ×2 (11:19→13:09)
[2021-08-02] MEDS: ACETAMINOPHEN 325 MG TABLET PO PRN (11:31)
[2021-08-02 12:00] VITALS: BP 182/47
[2021-08-02 16:00] VITALS: BP 141/39
[2021-08-02 20:00] VITALS: BP 159/44
[2021-08-02] MEDS: QUEtiapine FUMARATE 25 MG TABLET NG SCH (21:55)
[2021-08-03] VITALS: BP 160/44
[2021-08-03] MEDS: PROPOFOL 1000 MG/ISO-OSM 100 ML IV PRN ×4 (00:46→23:20)
[2021-08-03] MEDS: DEXMEDETOMIDINE HCL 400 MCG in SODIUM CHLORIDE 0.9% 96 ML IV PRN ×3 (00:48→21:24)
[2021-08-03] MEDS: FentaNYL CIT 1000MCG/0.9% NACL 100 ML IV PRN ×3 (00:49→21:24)
[2021-08-03] MEDS: RINGERS SOLUTION,LACTATED 1,000 ML IV SCH ×2 (03:11→18:45)
[2021-08-03 04:00] VITALS: BP 157/42
[2021-08-03 08:00] VITALS: BP 165/43
[2021-08-03] MEDS: CefTRIAXone SODIUM 2 GM in DEXTROSE 5%-WATER 50 ML IV SCH (08:36)
[2021-08-03] MEDS: OXYGEN THERAPY IH SCH ×2 (08:36→21:21)
[2021-08-03] MEDS: DOCUSATE SODIUM 100 MG/10 ML LIQUID UDCUP NG SCH ×2 (08:36→21:21)
[2021-08-03] MEDS: ETHYL ALCOHOL 62% ANTISEPTIC NASAL INHALANT 0.6 ML AMPUL NASAL SCH ×2 (08:36→21:21)
[2021-08-03] MEDS: PANTOPRAZOLE SODIUM 40 MG/VIAL IVP SCH ×2 (08:36→21:22)
[2021-08-03] MEDS: TICAGRELOR 90 MG TABLET PO SCH ×2 (08:37→21:22)
[2021-08-03] MEDS: DEXAMETHASONE SOD PHOS 4 MG/ML VIAL IVP SCH (08:37)
[2021-08-03] MEDS: ASPIRIN 81 MG DR TABLET PO SCH (08:37)
[2021-08-03] MEDS: METOPROLOL TARTRATE 50 MG TABLET PO SCH ×2 (08:38→21:00)
[2021-08-03] MEDS: ATORVASTATIN CALCIUM 20 MG TABLET PO SCH (08:38)
[2021-08-03] MEDS: DOXYCYCLINE HYCLATE 100 MG in DEXTROSE 5%-WATER 100 ML IV SCH ×2 (09:31→21:22)
[2021-08-03 12:00] VITALS: BP 164/49
[2021-08-03 12:42] LABS: BASOPHILS % (AUTO) 0.2 % (0.0-2.0); EOSINOPHILS % (AUTO) 0.5 % (1.0-6.0); HEMATOCRIT 32.4 % (36-46); LYMPHOCYTES # (AUTO) 0.3 K/uL (1.0-4.8); LYMPHOCYTES % (AUTO) 2.7 % (22.0-44.0); MEAN CORPUSCULAR HEMOGLOBIN 30.8 pg (26.0-34.0); MEAN CORPUSCULAR HGB CONC 33.9 G/dL (31.0-37.0); MEAN CORPUSCULAR VOLUME 91 fL (80-100); MONOCYTES # (AUTO) 0.4 K/uL (0.1-1.0); MONOCYTES % (AUTO) 3.4 % (2.0-9.0); NEUTROPHILS # (AUTO) 11.5 K/uL (1.8-7.7); PLATELET COUNT (AUTO) 117 K/uL (150-450); RED BLOOD CELL COUNT(AUTO) 3.57 MIL/uL (4.00-5.20); RED CELL DISTRIBUTION WIDTH 16.7 % (11.5-14.5)
[2021-08-03 12:45] LABS: NEUTROPHILS % (AUTO) 93.2 % (40.0-70.0)
[2021-08-03] MEDS: HydrALAZINE HCL 20 MG/ML VIAL IVP PRN (12:48)
[2021-08-03 12:52] LABS: ANION GAP 7 mmol/L (8-16); CALCIUM, TOTAL 8.7 mg/dL (8.8-10.5); CARBON DIOXIDE 22 mmol/L (22-29); CHLORIDE 113 mmol/L (98-107); CREATININE 0.69 mg/dL (0.60-1.30); GLUCOSE,RANDOM 214 mg/dL (70-110); POTASSIUM 4.3 mmol/L (3.5-5.1); SODIUM SERUM 142 mmol/L (136-145); UREA NITROGEN, BLOOD 37 mg/dL (7-18)
[2021-08-03 12:54] LABS: GLOMERULAR FILTR. RATE CALC > 60 mL/min (>60)
[2021-08-03] MEDS: ACETAMINOPHEN 325 MG TABLET PO PRN (14:04)
[2021-08-03 16:00] VITALS: BP 172/44
[2021-08-03 20:00] VITALS: BP 147/40
[2021-08-03] MEDS: QUEtiapine FUMARATE 25 MG TABLET NG SCH (21:22)
[2021-08-04] VITALS: BP 142/38
[2021-08-04 04:00] VITALS: BP 138/34
[2021-08-04] MEDS: PROPOFOL 1000 MG/ISO-OSM 100 ML IV PRN ×3 (05:26→21:18)
[2021-08-04] MEDS: DEXMEDETOMIDINE HCL 400 MCG in SODIUM CHLORIDE 0.9% 96 ML IV PRN ×2 (07:35→17:19)
[2021-08-04] MEDS: RINGERS SOLUTION,LACTATED 1,000 ML IV SCH (07:36)
[2021-08-04 08:00] VITALS: BP 150/37
[2021-08-04] MEDS: OXYGEN THERAPY IH SCH ×2 (08:46→21:17)
[2021-08-04] MEDS: DOXYCYCLINE HYCLATE 100 MG in DEXTROSE 5%-WATER 100 ML IV SCH ×2 (08:46→21:53)
[2021-08-04] MEDS: CefTRIAXone SODIUM 2 GM in DEXTROSE 5%-WATER 50 ML IV SCH (08:47)
[2021-08-04] MEDS: ASPIRIN 81 MG DR TABLET PO SCH (08:47)
[2021-08-04] MEDS: DEXAMETHASONE SOD PHOS 4 MG/ML VIAL IVP SCH (08:48)
[2021-08-04] MEDS: ATORVASTATIN CALCIUM 20 MG TABLET PO SCH (08:48)
[2021-08-04] MEDS: PANTOPRAZOLE SODIUM 40 MG/VIAL IVP SCH ×2 (08:48→21:51)
[2021-08-04] MEDS: METOPROLOL TARTRATE 50 MG TABLET PO SCH ×2 (09:00→21:00)
[2021-08-04] MEDS: TICAGRELOR 90 MG TABLET PO SCH ×2 (09:00→21:51)
[2021-08-04] MEDS: DOCUSATE SODIUM 100 MG/10 ML LIQUID UDCUP NG SCH ×2 (10:56→21:51)
[2021-08-04] MEDS: ETHYL ALCOHOL 62% ANTISEPTIC NASAL INHALANT 0.6 ML AMPUL NASAL SCH ×2 (10:57→21:46)
[2021-08-04 12:00] VITALS: BP 151/37
[2021-08-04] MEDS: INSULIN LISPRO 100 UNITS/ML SQ PRN ×2 (13:15→17:31)
[2021-08-04 13:26] LABS: GLUCOSE,POINT OF CARE 192 MG/DL (70-110)
[2021-08-04 16:00] VITALS: BP 138/38
[2021-08-04] MEDS: FentaNYL CIT 1000MCG/0.9% NACL 100 ML IV PRN (17:20)
[2021-08-04 18:16] LABS: GLUCOSE,POINT OF CARE 201 MG/DL (70-110)
[2021-08-04] MEDS ORDERED: FUROSEMIDE 40 MG/4 ML VIAL IVP ONE (20:15)
[2021-08-04] MEDS: QUEtiapine FUMARATE 25 MG TABLET NG SCH (21:51)
[2021-08-05] VITALS: BP 147/47
[2021-08-05] MEDS: RINGERS SOLUTION,LACTATED 1,000 ML IV SCH (00:03)
[2021-08-05] MEDS: INSULIN LISPRO 100 UNITS/ML SQ PRN ×2 (00:09→18:08)
[2021-08-05] MEDS: DEXMEDETOMIDINE HCL 400 MCG in SODIUM CHLORIDE 0.9% 96 ML IV PRN ×2 (03:53→12:41)
[2021-08-05] MEDS: FentaNYL CIT 1000MCG/0.9% NACL 100 ML IV PRN ×3 (03:54→22:58)
[2021-08-05] MEDS: PROPOFOL 1000 MG/ISO-OSM 100 ML IV PRN ×4 (03:55→22:59)
[2021-08-05 04:00] VITALS: BP 138/54
[2021-08-05 05:46] LABS: BASOPHILS % (AUTO) 0.1 % (0.0-2.0); EOSINOPHILS % (AUTO) 0.4 % (1.0-6.0); HEMATOCRIT 28.7 % (36-46); HEMOGLOBIN 9.8 g/dL (12.0-16.0); LYMPHOCYTES # (AUTO) 0.3 K/uL (1.0-4.8); MEAN CORPUSCULAR HEMOGLOBIN 31.4 pg (26.0-34.0); MEAN CORPUSCULAR HGB CONC 34.2 G/dL (31.0-37.0); MEAN CORPUSCULAR VOLUME 92 fL (80-100); MONOCYTES # (AUTO) 0.7 K/uL (0.1-1.0); MONOCYTES % (AUTO) 8.4 % (2.0-9.0); NEUTROPHILS # (AUTO) 7.4 K/uL (1.8-7.7); PLATELET COUNT (AUTO) 93 K/uL (150-450); RED BLOOD CELL COUNT(AUTO) 3.12 MIL/uL (4.00-5.20); RED CELL DISTRIBUTION WIDTH 16.8 % (11.5-14.5)
[2021-08-05 05:57] LABS: NEUTROPHILS % (AUTO) 87.1 % (40.0-70.0)
[2021-08-05 06:28] LABS: ANION GAP 7 mmol/L (8-16); CALCIUM, TOTAL 8.7 mg/dL (8.8-10.5); CARBON DIOXIDE 24 mmol/L (22-29); CHLORIDE 113 mmol/L (98-107); GLOMERULAR FILTR. RATE CALC > 60 mL/min (>60); GLUCOSE,RANDOM 134 mg/dL (70-110); PHOSPHORUS 3.7 mg/dL (2.5-4.9); POTASSIUM 3.9 mmol/L (3.5-5.1); SODIUM SERUM 144 mmol/L (136-145); UREA NITROGEN, BLOOD 38 mg/dL (7-18)
[2021-08-05 08:00] VITALS: BP 129/37
[2021-08-05] MEDS: CefTRIAXone SODIUM 2 GM in DEXTROSE 5%-WATER 50 ML IV SCH (08:13)
[2021-08-05 08:46] LABS: GLUCOSE,POINT OF CARE 160 MG/DL (70-110)
[2021-08-05] MEDS: METOPROLOL TARTRATE 50 MG TABLET PO SCH ×2 (09:00→19:18)
[2021-08-05] MEDS: PANTOPRAZOLE SODIUM 40 MG/VIAL IVP SCH ×2 (09:17→23:02)
[2021-08-05] MEDS: DOXYCYCLINE HYCLATE 100 MG in DEXTROSE 5%-WATER 100 ML IV SCH ×2 (09:17→23:02)
[2021-08-05] MEDS: ETHYL ALCOHOL 62% ANTISEPTIC NASAL INHALANT 0.6 ML AMPUL NASAL SCH ×2 (09:18→23:07)
[2021-08-05] MEDS: DEXAMETHASONE SOD PHOS 4 MG/ML VIAL IVP SCH (09:18)
[2021-08-05] MEDS: ASPIRIN 81 MG DR TABLET PO SCH (09:19)
[2021-08-05] MEDS: DOCUSATE SODIUM 100 MG/10 ML LIQUID UDCUP NG SCH ×2 (09:23→23:03)
[2021-08-05] MEDS: OXYGEN THERAPY IH SCH (09:37)
[2021-08-05] MEDS ORDERED: FUROSEMIDE 40 MG/4 ML VIAL IVP ONE (10:45)
[2021-08-05] MEDS: TICAGRELOR 90 MG TABLET PO SCH ×2 (11:37→23:03)
[2021-08-05] MEDS: METOCLOPRAMIDE HCL 5 MG/ML 2 ML VIAL IVP SCH ×3 (11:38→23:31)
[2021-08-05] MEDS ORDERED: SODIUM CHLORIDE 0.9% 250 ML IV ONE (11:54)
[2021-08-05 12:00] VITALS: BP 154/48
[2021-08-05 16:00] VITALS: BP 151/49
[2021-08-05] MEDS ORDERED: SODIUM CHLORIDE 0.9% 500 ML IV ONE (16:26)
[2021-08-05 17:36] LABS: GLUCOSE,POINT OF CARE 137 MG/DL (70-110)
[2021-08-05 19:01] LABS: GLUCOSE,POINT OF CARE 144 MG/DL (70-110)
[2021-08-05 20:00] VITALS: BP 131/45
[2021-08-05 22:01] LABS: GLUCOSE,POINT OF CARE 159 MG/DL (70-110)
[2021-08-05] MEDS: ATORVASTATIN CALCIUM 20 MG TABLET PO SCH (23:02)
[2021-08-05] MEDS: QUEtiapine FUMARATE 25 MG TABLET NG SCH (23:03)
[2021-08-06] VITALS: BP 136/41
[2021-08-06 04:00] VITALS: BP 89/27
[2021-08-06] MEDS: PROPOFOL 1000 MG/ISO-OSM 100 ML IV PRN (04:42)
[2021-08-06] MEDS: METOCLOPRAMIDE HCL 5 MG/ML 2 ML VIAL IVP SCH ×3 (05:26→18:28)
[2021-08-06] MEDS: DEXMEDETOMIDINE HCL 400 MCG in SODIUM CHLORIDE 0.9% 96 ML IV PRN ×2 (05:53→22:56)
[2021-08-06 06:03] LABS: BASOPHILS % (AUTO) 0.2 % (0.0-2.0); EOSINOPHILS % (AUTO) 0.2 % (1.0-6.0); HEMATOCRIT 27.2 % (36-46); HEMOGLOBIN 9.4 g/dL (12.0-16.0); LYMPHOCYTES # (AUTO) 0.3 K/uL (1.0-4.8); LYMPHOCYTES % (AUTO) 2.4 % (22.0-44.0); MEAN CORPUSCULAR HEMOGLOBIN 31.8 pg (26.0-34.0); MEAN CORPUSCULAR HGB CONC 34.5 G/dL (31.0-37.0); MEAN CORPUSCULAR VOLUME 92 fL (80-100); MONOCYTES # (AUTO) 0.8 K/uL (0.1-1.0); MONOCYTES % (AUTO) 7.6 % (2.0-9.0); NEUTROPHILS # (AUTO) 9.4 K/uL (1.8-7.7); PLATELET COUNT (AUTO) 82 K/uL (150-450); RED BLOOD CELL COUNT(AUTO) 2.95 MIL/uL (4.00-5.20); RED CELL DISTRIBUTION WIDTH 16.8 % (11.5-14.5)
[2021-08-06 06:18] LABS: CALCIUM, TOTAL 8.4 mg/dL (8.8-10.5); CREATININE 0.97 mg/dL (0.60-1.30); POTASSIUM 3.8 mmol/L (3.5-5.1)
[2021-08-06 06:21] LABS: GLUCOSE,POINT OF CARE 135 MG/DL (70-110)
[2021-08-06 06:53] LABS: NEUTROPHILS % (AUTO) 89.6 % (40.0-70.0)
[2021-08-06] MEDS: OXYGEN THERAPY IH SCH ×3 (08:00→21:12)
[2021-08-06] MEDS: CefTRIAXone SODIUM 2 GM in DEXTROSE 5%-WATER 50 ML IV SCH (08:33)
[2021-08-06] MEDS: ETHYL ALCOHOL 62% ANTISEPTIC NASAL INHALANT 0.6 ML AMPUL NASAL SCH ×2 (08:34→21:40)
[2021-08-06] MEDS: TICAGRELOR 90 MG TABLET PO SCH ×2 (08:35→21:40)
[2021-08-06] MEDS: METOPROLOL TARTRATE 50 MG TABLET PO SCH ×2 (08:35→21:40)
[2021-08-06] MEDS: PANTOPRAZOLE SODIUM 40 MG/VIAL IVP SCH ×2 (08:35→21:40)
[2021-08-06] MEDS: ASPIRIN 81 MG DR TABLET PO SCH (08:35)
[2021-08-06] MEDS: DOCUSATE SODIUM 100 MG/10 ML LIQUID UDCUP NG SCH (08:35)
[2021-08-06] MEDS: NOREPINEPHRINE BITARTRATE 8 MG in DEXTROSE 5%-WATER 242 ML IV PRN (09:37)
[2021-08-06] MEDS: DOXYCYCLINE HYCLATE 100 MG in DEXTROSE 5%-WATER 100 ML IV SCH ×2 (09:38→21:39)
[2021-08-06] MEDS: FentaNYL CIT 1000MCG/0.9% NACL 100 ML IV PRN ×2 (11:38→18:29)
[2021-08-06] MEDS: DEXAMETHASONE SOD PHOS 4 MG/ML VIAL IVP SCH (11:42)
[2021-08-06 12:00] VITALS: BP 106/35
[2021-08-06 13:41] LABS: GLUCOSE,POINT OF CARE 139 MG/DL (70-110)
[2021-08-06 16:00] VITALS: BP 151/47
[2021-08-06 20:00] VITALS: BP 136/41
[2021-08-06] MEDS: ATORVASTATIN CALCIUM 20 MG TABLET PO SCH (21:40)
[2021-08-06 22:31] LABS: GLUCOSE,POINT OF CARE 124 MG/DL (70-110)
[2021-08-06 23:46] LABS: GLUCOSE,POINT OF CARE 137 MG/DL (70-110)
[2021-08-07] VITALS: BP 180/47
[2021-08-07] MEDS: QUEtiapine FUMARATE 25 MG TABLET NG SCH ×2 (00:28→21:59)
[2021-08-07] MEDS: DOCUSATE SODIUM 100 MG/10 ML LIQUID UDCUP NG SCH ×3 (00:28→23:21)
[2021-08-07] MEDS: PROPOFOL 1000 MG/ISO-OSM 100 ML IV PRN ×5 (00:28→19:52)
[2021-08-07] MEDS: FentaNYL CIT 1000MCG/0.9% NACL 100 ML IV PRN ×4 (00:30→10:05)
[2021-08-07] MEDS: METOCLOPRAMIDE HCL 5 MG/ML 2 ML VIAL IVP SCH ×4 (00:56→18:37)
[2021-08-07 04:00] VITALS: BP 187/47
[2021-08-07] MEDS: HydrALAZINE HCL 20 MG/ML VIAL IVP PRN (04:14)
[2021-08-07] MEDS: NOREPINEPHRINE BITARTRATE 8 MG in DEXTROSE 5%-WATER 242 ML IV PRN ×2 (05:49→11:25)
[2021-08-07 08:00] VITALS: BP 183/49
[2021-08-07] MEDS: ASPIRIN 81 MG DR TABLET PO SCH (08:49)
[2021-08-07] MEDS: TICAGRELOR 90 MG TABLET PO SCH ×2 (08:49→22:01)
[2021-08-07] MEDS: PANTOPRAZOLE SODIUM 40 MG/VIAL IVP SCH ×2 (08:49→21:59)
[2021-08-07] MEDS: ETHYL ALCOHOL 62% ANTISEPTIC NASAL INHALANT 0.6 ML AMPUL NASAL SCH ×2 (08:50→21:59)
[2021-08-07] MEDS: METOPROLOL TARTRATE 50 MG TABLET PO SCH ×2 (08:50→21:59)
[2021-08-07] MEDS: OXYGEN THERAPY IH SCH ×2 (08:50→19:35)
[2021-08-07] MEDS: DOXYCYCLINE HYCLATE 100 MG in DEXTROSE 5%-WATER 100 ML IV SCH ×2 (08:51→22:00)
[2021-08-07] MEDS: CefTRIAXone SODIUM 2 GM in DEXTROSE 5%-WATER 50 ML IV SCH (08:51)
[2021-08-07] MEDS: DEXAMETHASONE SOD PHOS 4 MG/ML VIAL IVP SCH (09:30)
[2021-08-07 12:02] LABS: GLUCOSE,POINT OF CARE 129 MG/DL (70-110)
[2021-08-07] MEDS: DEXMEDETOMIDINE HCL 400 MCG in SODIUM CHLORIDE 0.9% 96 ML IV PRN (13:49)
[2021-08-07] MEDS: INSULIN LISPRO 100 UNITS/ML SQ PRN ×3 (13:50→23:20)
[2021-08-07 16:26] LABS: GLUCOSE,POINT OF CARE 169 MG/DL (70-110)
[2021-08-07 19:06] LABS: GLUCOSE,POINT OF CARE 200 MG/DL (70-110)
[2021-08-07 20:00] VITALS: BP 183/49
[2021-08-07] MEDS: ATORVASTATIN CALCIUM 20 MG TABLET PO SCH (21:59)
[2021-08-08] VITALS: BP 150/41
[2021-08-08] MEDS: METOCLOPRAMIDE HCL 5 MG/ML 2 ML VIAL IVP SCH ×5 (00:32→23:40)
[2021-08-08] MEDS: PROPOFOL 1000 MG/ISO-OSM 100 ML IV PRN ×4 (01:12→23:02)
[2021-08-08 01:22] LABS: GLUCOSE,POINT OF CARE 159 MG/DL (70-110)
[2021-08-08 04:00] VITALS: BP 134/32
[2021-08-08] MEDS: DEXMEDETOMIDINE HCL 400 MCG in SODIUM CHLORIDE 0.9% 96 ML IV PRN ×2 (04:50→23:01)
[2021-08-08] MEDS: OXYGEN THERAPY IH SCH ×2 (10:06→20:37)
[2021-08-08] MEDS: DOXYCYCLINE HYCLATE 100 MG in DEXTROSE 5%-WATER 100 ML IV SCH ×2 (10:07→20:39)
[2021-08-08] MEDS: CefTRIAXone SODIUM 2 GM in DEXTROSE 5%-WATER 50 ML IV SCH (10:07)
[2021-08-08] MEDS: DEXAMETHASONE SOD PHOS 4 MG/ML VIAL IVP SCH (10:08)
[2021-08-08] MEDS: ASPIRIN 81 MG DR TABLET PO SCH (10:08)
[2021-08-08] MEDS: PANTOPRAZOLE SODIUM 40 MG/VIAL IVP SCH ×2 (10:08→20:38)
[2021-08-08] MEDS: TICAGRELOR 90 MG TABLET PO SCH ×2 (10:09→20:38)
[2021-08-08] MEDS: METOPROLOL TARTRATE 50 MG TABLET PO SCH ×2 (10:09→20:40)
[2021-08-08] MEDS: ETHYL ALCOHOL 62% ANTISEPTIC NASAL INHALANT 0.6 ML AMPUL NASAL SCH ×2 (10:10→20:38)
[2021-08-08] MEDS: DOCUSATE SODIUM 100 MG/10 ML LIQUID UDCUP NG SCH ×2 (10:12→20:38)
[2021-08-08] MEDS: FentaNYL CIT 1000MCG/0.9% NACL 100 ML IV PRN (15:49)
[2021-08-08 17:11] LABS: GLUCOSE,POINT OF CARE 130 MG/DL (70-110)
[2021-08-08] MEDS ORDERED: ATROPINE SULFATE 0.1 MG/ML 10 ML SYRINGE IVP ONE (17:23)
[2021-08-08] MEDS ORDERED: EPINEPHrine 1:10,000 [1 MG/10 ML] SYRINGE ONE (17:23)
[2021-08-08 17:36] LABS: GLUCOSE,POINT OF CARE 115 MG/DL (70-110)
[2021-08-08 20:00] VITALS: BP 159/38
[2021-08-08] MEDS: QUEtiapine FUMARATE 25 MG TABLET NG SCH (20:38)
[2021-08-08] MEDS: ATORVASTATIN CALCIUM 20 MG TABLET PO SCH (20:38)
[2021-08-09] VITALS: BP 171/42
[2021-08-09] MEDS: FentaNYL CIT 1000MCG/0.9% NACL 100 ML IV PRN ×2 (00:35→14:54)
[2021-08-09 04:00] VITALS: BP 126/36
[2021-08-09] MEDS: METOCLOPRAMIDE HCL 5 MG/ML 2 ML VIAL IVP SCH ×4 (05:04→23:21)
[2021-08-09] MEDS: PROPOFOL 1000 MG/ISO-OSM 100 ML IV PRN ×4 (05:05→19:48)
[2021-08-09 08:00] VITALS: BP 150/60
[2021-08-09] MEDS: DOCUSATE SODIUM 100 MG/10 ML LIQUID UDCUP NG SCH ×2 (09:25→20:16)
[2021-08-09] MEDS: METOPROLOL TARTRATE 50 MG TABLET PO SCH ×2 (09:25→20:17)
[2021-08-09] MEDS: PANTOPRAZOLE SODIUM 40 MG/VIAL IVP SCH ×2 (09:25→20:16)
[2021-08-09] MEDS: DEXAMETHASONE SOD PHOS 4 MG/ML VIAL IVP SCH (09:25)
[2021-08-09] MEDS: ASPIRIN 81 MG DR TABLET PO SCH (09:26)
[2021-08-09] MEDS: ETHYL ALCOHOL 62% ANTISEPTIC NASAL INHALANT 0.6 ML AMPUL NASAL SCH ×2 (09:26→20:16)
[2021-08-09] MEDS: TICAGRELOR 90 MG TABLET PO SCH ×2 (09:26→20:16)
[2021-08-09] MEDS: DOXYCYCLINE HYCLATE 100 MG in DEXTROSE 5%-WATER 100 ML IV SCH ×2 (09:27→20:17)
[2021-08-09] MEDS: CefTRIAXone SODIUM 2 GM in DEXTROSE 5%-WATER 50 ML IV SCH (09:27)
[2021-08-09] MEDS: OXYGEN THERAPY IH SCH ×2 (09:29→20:17)
[2021-08-09 10:01] LABS: GLUCOSE,POINT OF CARE 95 MG/DL (70-110)
[2021-08-09 12:00] VITALS: BP 163/44
[2021-08-09 13:16] LABS: GLUCOSE,POINT OF CARE 121 MG/DL (70-110)
[2021-08-09] MEDS: DEXMEDETOMIDINE HCL 400 MCG in SODIUM CHLORIDE 0.9% 96 ML IV PRN ×2 (13:23→22:04)
[2021-08-09 16:00] VITALS: BP 164/43
[2021-08-09 17:41] LABS: GLUCOSE,POINT OF CARE 107 MG/DL (70-110)
[2021-08-09] MEDS ORDERED: SODIUM CHLORIDE 0.9% 250 ML IV ONE (19:33)
[2021-08-09 20:00] VITALS: BP 151/34
[2021-08-09] MEDS: QUEtiapine FUMARATE 25 MG TABLET NG SCH (20:16)
[2021-08-09] MEDS: ATORVASTATIN CALCIUM 20 MG TABLET PO SCH (20:16)
[2021-08-10] VITALS: BP 143/58
[2021-08-10] MEDS: PROPOFOL 1000 MG/ISO-OSM 100 ML IV PRN ×6 (00:20→22:31)
[2021-08-10 02:36] LABS: GLUCOSE,POINT OF CARE 110 MG/DL (70-110)
[2021-08-10] MEDS: FentaNYL CIT 1000MCG/0.9% NACL 100 ML IV PRN ×3 (02:39→23:54)
[2021-08-10 04:00] VITALS: BP 156/67
[2021-08-10] MEDS: METOCLOPRAMIDE HCL 5 MG/ML 2 ML VIAL IVP SCH ×4 (05:27→23:53)
[2021-08-10] MEDS: DEXMEDETOMIDINE HCL 400 MCG in SODIUM CHLORIDE 0.9% 96 ML IV PRN ×3 (06:42→23:55)
[2021-08-10 08:00] VITALS: BP 142/56
[2021-08-10] MEDS: OXYGEN THERAPY IH SCH ×2 (08:05→20:20)
[2021-08-10] MEDS: CefTRIAXone SODIUM 2 GM in DEXTROSE 5%-WATER 50 ML IV SCH (08:05)
[2021-08-10] MEDS: ASPIRIN 81 MG DR TABLET PO SCH (08:06)
[2021-08-10] MEDS: ETHYL ALCOHOL 62% ANTISEPTIC NASAL INHALANT 0.6 ML AMPUL NASAL SCH ×2 (08:06→20:19)
[2021-08-10] MEDS: DOCUSATE SODIUM 100 MG/10 ML LIQUID UDCUP NG SCH ×2 (08:06→20:18)
[2021-08-10] MEDS: TICAGRELOR 90 MG TABLET PO SCH ×2 (08:07→20:19)
[2021-08-10] MEDS: DEXAMETHASONE SOD PHOS 4 MG/ML VIAL IVP SCH (08:07)
[2021-08-10] MEDS: PANTOPRAZOLE SODIUM 40 MG/VIAL IVP SCH ×2 (08:07→20:19)
[2021-08-10] MEDS: METOPROLOL TARTRATE 50 MG TABLET PO SCH ×2 (08:08→20:20)
[2021-08-10 08:11] LABS: CALCIUM, TOTAL 8.4 mg/dL (8.8-10.5); CREATININE 0.91 mg/dL (0.60-1.30); POTASSIUM 3.5 mmol/L (3.5-5.1)
[2021-08-10 08:53] LABS: BASOPHILS % (AUTO) 0.6 % (0.0-2.0); EOSINOPHILS % (AUTO) 1.9 % (1.0-6.0); HEMATOCRIT 25.6 % (36-46); HEMOGLOBIN 8.7 g/dL (12.0-16.0); LYMPHOCYTES # (AUTO) 0.3 K/uL (1.0-4.8); LYMPHOCYTES % (AUTO) 3.7 % (22.0-44.0); MEAN CORPUSCULAR HEMOGLOBIN 32.3 pg (26.0-34.0); MEAN CORPUSCULAR HGB CONC 34.1 G/dL (31.0-37.0); MEAN CORPUSCULAR VOLUME 95 fL (80-100); MONOCYTES # (AUTO) 0.6 K/uL (0.1-1.0); NEUTROPHILS # (AUTO) 6.5 K/uL (1.8-7.7)
[2021-08-10 08:57] LABS: NEUTROPHILS % (AUTO) 85.8 % (40.0-70.0)
[2021-08-10] MEDS: DOXYCYCLINE HYCLATE 100 MG in DEXTROSE 5%-WATER 100 ML IV SCH ×2 (09:17→20:18)
[2021-08-10] MEDS: POTASSIUM CHL 10 MEQ/WATER 50 ML IV PRN ×3 (09:17→12:55)
[2021-08-10 10:50] LABS: GLUCOSE,POINT OF CARE 131 MG/DL (70-110)
[2021-08-10 11:15] LABS: PLATELET COUNT (AUTO) 68 K/uL (150-450)
[2021-08-10 12:00] VITALS: BP 152/59
[2021-08-10] MEDS: INSULIN LISPRO 100 UNITS/ML SQ PRN ×2 (12:05→17:24)
[2021-08-10 16:00] VITALS: BP 155/53
[2021-08-10 17:21] LABS: GLUCOSE,POINT OF CARE 164 MG/DL (70-110)
[2021-08-10 20:00] VITALS: BP 123/48
[2021-08-10] MEDS: ATORVASTATIN CALCIUM 20 MG TABLET PO SCH (20:19)
[2021-08-10] MEDS: QUEtiapine FUMARATE 25 MG TABLET NG SCH (20:19)
[2021-08-10 20:52] LABS: GLUCOSE,POINT OF CARE 214 MG/DL (70-110)
[2021-08-10 21:23] LABS: ABG BASE EXCESS -6.8 mmol/L (-2.0-3.0); ABG HCO3 19.4 mmol/L (22.0-26.0); ABG METHEMOGLOBIN 0.3 % (0.0-1.5); ABG OXYGEN CONTENT 12.7 mL/dL (15.0-23.0); ABG OXYGEN SATURATION 97.2 % (95.0-98.0); ABG OXYHEMOGLOBIN 95.9 % (94.0-100.0); ABG PCO2 34 mmHg (35-45); ABG PH 7.363 (7.35-7.450); ABG TOTAL HEMOGLOBIN 9.3 G/dL (12.0-18.0); O2 DEVICE,BLOOD GAS VENTILATOR (ROOM AIR); PO2, ARTERIAL BG 94.2 mmHg (71.0-79.0); SITE, BLOOD GAS RT RADIAL; SOURCE, BLOOD GAS ARTERIAL; TEMPERATURE, FAHRENHEIT, BG 97.9 FAHREN (96.0-98.6)
[2021-08-10 21:24] LABS: PEEP,BG 5 cm H2O; VT, ABG 400 ml
[2021-08-11] VITALS: BP 120/47
[2021-08-11] MEDS: INSULIN LISPRO 100 UNITS/ML SQ PRN ×3 (00:26→17:47)
[2021-08-11 01:05] LABS: GLUCOSE,POINT OF CARE 219 MG/DL (70-110)
[2021-08-11] MEDS: PROPOFOL 1000 MG/ISO-OSM 100 ML IV PRN ×5 (02:17→21:10)
[2021-08-11 04:00] VITALS: BP 132/50
[2021-08-11] MEDS: METOCLOPRAMIDE HCL 5 MG/ML 2 ML VIAL IVP SCH ×3 (06:03→17:30)
[2021-08-11 08:00] VITALS: BP 131/51
[2021-08-11 08:06] LABS: GLUCOSE,POINT OF CARE 138 MG/DL (70-110)
[2021-08-11] MEDS ORDERED: SODIUM CHLORIDE 0.9% 250 ML IV ONE (08:56)
[2021-08-11] MEDS: OXYGEN THERAPY IH SCH ×2 (08:58→21:08)
[2021-08-11] MEDS: CefTRIAXone SODIUM 2 GM in DEXTROSE 5%-WATER 50 ML IV SCH (08:58)
[2021-08-11] MEDS: DEXAMETHASONE SOD PHOS 4 MG/ML VIAL IVP SCH (08:59)
[2021-08-11] MEDS: DOXYCYCLINE HYCLATE 100 MG in DEXTROSE 5%-WATER 100 ML IV SCH ×2 (08:59→21:06)
[2021-08-11] MEDS: TICAGRELOR 90 MG TABLET PO SCH ×2 (09:00→21:06)
[2021-08-11] MEDS: ASPIRIN 81 MG DR TABLET PO SCH (09:00)
[2021-08-11] MEDS: METOPROLOL TARTRATE 50 MG TABLET PO SCH ×2 (09:00→21:00)
[2021-08-11] MEDS: PANTOPRAZOLE SODIUM 40 MG/VIAL IVP SCH ×2 (09:00→21:06)
[2021-08-11] MEDS: ETHYL ALCOHOL 62% ANTISEPTIC NASAL INHALANT 0.6 ML AMPUL NASAL SCH ×2 (09:00→21:06)
[2021-08-11] MEDS: DOCUSATE SODIUM 100 MG/10 ML LIQUID UDCUP NG SCH ×2 (09:02→21:06)
[2021-08-11 12:00] VITALS: BP 131/55
[2021-08-11 13:06] LABS: GLUCOSE,POINT OF CARE 197 MG/DL (70-110)
[2021-08-11] MEDS: DEXMEDETOMIDINE HCL 400 MCG in SODIUM CHLORIDE 0.9% 96 ML IV PRN (14:58)
[2021-08-11 16:00] VITALS: BP 158/76
[2021-08-11] MEDS ORDERED: FUROSEMIDE 20 MG/2 ML VIAL IVP ONE (17:30)
[2021-08-11] MEDS: FentaNYL CIT 1000MCG/0.9% NACL 100 ML IV PRN (17:31)
[2021-08-11 18:06] LABS: GLUCOSE,POINT OF CARE 198 MG/DL (70-110)
[2021-08-11 20:00] VITALS: BP 109/47
[2021-08-11] MEDS: ATORVASTATIN CALCIUM 20 MG TABLET PO SCH (21:07)
[2021-08-11] MEDS: QUEtiapine FUMARATE 25 MG TABLET NG SCH (21:08)
[2021-08-12] VITALS: BP 123/62
[2021-08-12] MEDS: INSULIN LISPRO 100 UNITS/ML SQ PRN ×3 (00:08→17:52)
[2021-08-12] MEDS: METOCLOPRAMIDE HCL 5 MG/ML 2 ML VIAL IVP SCH ×5 (00:36→23:32)
[2021-08-12] MEDS: PROPOFOL 1000 MG/ISO-OSM 100 ML IV PRN ×4 (02:26→20:55)
[2021-08-12 04:00] VITALS: BP 150/75
[2021-08-12] MEDS: FentaNYL CIT 1000MCG/0.9% NACL 100 ML IV PRN ×2 (05:09→15:50)
[2021-08-12 05:36] LABS: GLUCOSE,POINT OF CARE 203 MG/DL (70-110)
[2021-08-12 06:15] LABS: BASOPHILS % (AUTO) 0.2 % (0.0-2.0); EOSINOPHILS % (AUTO) 0.7 % (1.0-6.0); HEMATOCRIT 29.3 % (36-46); HEMOGLOBIN 9.9 g/dL (12.0-16.0); LYMPHOCYTES # (AUTO) 0.4 K/uL (1.0-4.8); LYMPHOCYTES % (AUTO) 4.5 % (22.0-44.0); MEAN CORPUSCULAR HEMOGLOBIN 32.3 pg (26.0-34.0); MEAN CORPUSCULAR HGB CONC 33.9 G/dL (31.0-37.0); MEAN CORPUSCULAR VOLUME 95 fL (80-100); MONOCYTES # (AUTO) 0.8 K/uL (0.1-1.0); MONOCYTES % (AUTO) 8.7 % (2.0-9.0); NEUTROPHILS # (AUTO) 7.8 K/uL (1.8-7.7); PLATELET COUNT (AUTO) 86 K/uL (150-450); RED BLOOD CELL COUNT(AUTO) 3.07 MIL/uL (4.00-5.20); RED CELL DISTRIBUTION WIDTH 21.6 % (11.5-14.5)
[2021-08-12 06:24] LABS: NEUTROPHILS % (AUTO) 85.9 % (40.0-70.0)
[2021-08-12 06:37] LABS: GLUCOSE,POINT OF CARE 155 MG/DL (70-110)
[2021-08-12 06:38] LABS: CALCIUM, TOTAL 9.2 mg/dL (8.8-10.5); CREATININE 1.01 mg/dL (0.60-1.30); POTASSIUM 3.7 mmol/L (3.5-5.1)
[2021-08-12 08:00] VITALS: BP 133/79
[2021-08-12] MEDS: METOPROLOL TARTRATE 50 MG TABLET PO SCH ×2 (09:20→20:57)
[2021-08-12] MEDS: ETHYL ALCOHOL 62% ANTISEPTIC NASAL INHALANT 0.6 ML AMPUL NASAL SCH ×2 (09:22→20:56)
[2021-08-12] MEDS: ASPIRIN 81 MG DR TABLET PO SCH (09:22)
[2021-08-12] MEDS: TICAGRELOR 90 MG TABLET PO SCH (09:22)
[2021-08-12] MEDS: DOCUSATE SODIUM 100 MG/10 ML LIQUID UDCUP NG SCH ×2 (09:23→20:56)
[2021-08-12] MEDS: PANTOPRAZOLE SODIUM 40 MG/VIAL IVP SCH ×2 (09:23→20:56)
[2021-08-12] MEDS: DEXAMETHASONE SOD PHOS 4 MG/ML VIAL IVP SCH (09:23)
[2021-08-12] MEDS: CefTRIAXone SODIUM 2 GM in DEXTROSE 5%-WATER 50 ML IV SCH (09:24)
[2021-08-12] MEDS: DOXYCYCLINE HYCLATE 100 MG in DEXTROSE 5%-WATER 100 ML IV SCH ×2 (09:24→20:56)
[2021-08-12] MEDS: OXYGEN THERAPY IH SCH ×2 (09:24→20:59)
[2021-08-12 12:00] VITALS: BP 143/77
[2021-08-12] MEDS: POTASSIUM CHL 10 MEQ/WATER 50 ML IV PRN ×2 (12:26→14:05)
[2021-08-12 13:57] LABS: GLUCOSE,POINT OF CARE 109 MG/DL (70-110)
[2021-08-12] MEDS: ACETAMINOPHEN 325 MG TABLET PO PRN (15:22)
[2021-08-12 16:00] VITALS: BP 156/70
[2021-08-12] MEDS ORDERED: FUROSEMIDE 40 MG/4 ML VIAL IVP ONE (17:30)
[2021-08-12 19:46] LABS: GLUCOSE,POINT OF CARE 154 MG/DL (70-110)
[2021-08-12 20:00] VITALS: BP 148/64
[2021-08-12] MEDS: ATORVASTATIN CALCIUM 20 MG TABLET PO SCH (20:56)
[2021-08-12] MEDS: QUEtiapine FUMARATE 25 MG TABLET NG SCH (20:56)
[2021-08-13] VITALS: BP 111/46
[2021-08-13 01:46] LABS: GLUCOSE,POINT OF CARE 119 MG/DL (70-110)
[2021-08-13] MEDS: PROPOFOL 1000 MG/ISO-OSM 100 ML IV PRN ×2 (01:59→16:35)
[2021-08-13] MEDS: FentaNYL CIT 1000MCG/0.9% NACL 100 ML IV PRN ×2 (01:59→16:36)
[2021-08-13 04:00] VITALS: BP 123/51
[2021-08-13 05:51] LABS: BASOPHILS % (AUTO) 0.3 % (0.0-2.0); EOSINOPHILS % (AUTO) 0.7 % (1.0-6.0); HEMATOCRIT 24.7 % (36-46); HEMOGLOBIN 8.5 g/dL (12.0-16.0); LYMPHOCYTES # (AUTO) 0.5 K/uL (1.0-4.8); LYMPHOCYTES % (AUTO) 6.5 % (22.0-44.0); MEAN CORPUSCULAR HEMOGLOBIN 32.7 pg (26.0-34.0); MEAN CORPUSCULAR HGB CONC 34.3 G/dL (31.0-37.0); MEAN CORPUSCULAR VOLUME 95 fL (80-100); MONOCYTES # (AUTO) 0.9 K/uL (0.1-1.0); NEUTROPHILS # (AUTO) 6.2 K/uL (1.8-7.7); NEUTROPHILS % (AUTO) 80.5 % (40.0-70.0); PLATELET COUNT (AUTO) 86 K/uL (150-450); RED BLOOD CELL COUNT(AUTO) 2.59 MIL/uL (4.00-5.20); RED CELL DISTRIBUTION WIDTH 20.6 % (11.5-14.5)
[2021-08-13 05:55] LABS: GLUCOSE,POINT OF CARE 124 MG/DL (70-110)
[2021-08-13] MEDS: METOCLOPRAMIDE HCL 5 MG/ML 2 ML VIAL IVP SCH ×3 (05:56→13:47)
[2021-08-13 06:41] LABS: ALBUMIN 1.4 g/dL (3.4-5.0); BILIRUBIN,TOTAL 0.3 mg/dL (0.1-1.0); CREATININE 1.09 mg/dL (0.60-1.30); POTASSIUM 4.1 mmol/L (3.5-5.1); TOTAL PROTEIN, SERUM 5.2 g/dL (6.4-8.2)
[2021-08-13] MEDS: CefTRIAXone SODIUM 2 GM in DEXTROSE 5%-WATER 50 ML IV SCH (08:55)
[2021-08-13] MEDS: OXYGEN THERAPY IH SCH ×2 (08:56→21:01)
[2021-08-13] MEDS: DOCUSATE SODIUM 100 MG/10 ML LIQUID UDCUP NG SCH ×2 (08:57→21:05)
[2021-08-13] MEDS: PANTOPRAZOLE SODIUM 40 MG/VIAL IVP SCH ×2 (08:57→21:09)
[2021-08-13] MEDS: ASPIRIN 81 MG DR TABLET PO SCH (09:07)
[2021-08-13] MEDS: FUROSEMIDE 40 MG/4 ML VIAL IVP SCH (09:07)
[2021-08-13] MEDS: DEXAMETHASONE SOD PHOS 4 MG/ML VIAL IVP SCH (09:09)
[2021-08-13] MEDS: ETHYL ALCOHOL 62% ANTISEPTIC NASAL INHALANT 0.6 ML AMPUL NASAL SCH ×2 (09:10→21:05)
[2021-08-13] MEDS: METOPROLOL TARTRATE 50 MG TABLET PO SCH ×2 (09:19→21:07)
[2021-08-13 12:00] VITALS: BP 141/68
[2021-08-13] MEDS: DOXYCYCLINE HYCLATE 100 MG in DEXTROSE 5%-WATER 100 ML IV SCH ×2 (13:46→21:08)
[2021-08-13 16:00] VITALS: BP 116/51
[2021-08-13 18:42] LABS: GLUCOSE,POINT OF CARE 212 MG/DL (70-110)
[2021-08-13 20:00] VITALS: BP 138/61
[2021-08-13] MEDS: ATORVASTATIN CALCIUM 20 MG TABLET PO SCH (21:05)
[2021-08-13] MEDS: QUEtiapine FUMARATE 25 MG TABLET NG SCH (21:05)
[2021-08-14] VITALS: BP 121/53
[2021-08-14] MEDS: METOCLOPRAMIDE HCL 5 MG/ML 2 ML VIAL IVP SCH ×4 (01:54→18:08)
[2021-08-14] MEDS: PROPOFOL 1000 MG/ISO-OSM 100 ML IV PRN ×3 (01:56→22:00)
[2021-08-14] MEDS: FentaNYL CIT 1000MCG/0.9% NACL 100 ML IV PRN ×3 (01:57→22:01)
[2021-08-14 02:07] LABS: GLUCOSE,POINT OF CARE 138 MG/DL (70-110)
[2021-08-14 04:00] VITALS: BP 138/61
[2021-08-14 08:00] VITALS: BP 153/57
[2021-08-14] MEDS: DOCUSATE SODIUM 100 MG/10 ML LIQUID UDCUP NG SCH ×2 (08:49→21:14)
[2021-08-14] MEDS: METOPROLOL TARTRATE 50 MG TABLET PO SCH ×2 (08:50→21:16)
[2021-08-14] MEDS: PANTOPRAZOLE SODIUM 40 MG/VIAL IVP SCH ×2 (08:50→21:14)
[2021-08-14] MEDS: ETHYL ALCOHOL 62% ANTISEPTIC NASAL INHALANT 0.6 ML AMPUL NASAL SCH ×2 (08:50→21:15)
[2021-08-14] MEDS: CefTRIAXone SODIUM 2 GM in DEXTROSE 5%-WATER 50 ML IV SCH (08:51)
[2021-08-14] MEDS: DEXAMETHASONE SOD PHOS 4 MG/ML VIAL IVP SCH (08:51)
[2021-08-14] MEDS: FUROSEMIDE 40 MG/4 ML VIAL IVP SCH (08:51)
[2021-08-14] MEDS: DOXYCYCLINE HYCLATE 100 MG in DEXTROSE 5%-WATER 100 ML IV SCH ×2 (08:52→21:14)
[2021-08-14] MEDS: ASPIRIN 81 MG DR TABLET PO SCH (08:53)
[2021-08-14] MEDS ORDERED: SODIUM CHLORIDE 0.9% 250 ML IV ONE (09:04)
[2021-08-14 12:00] VITALS: BP 143/64
[2021-08-14] MEDS: INSULIN LISPRO 100 UNITS/ML SQ PRN ×3 (14:04→21:33)
[2021-08-14 16:00] VITALS: BP 144/57
[2021-08-14 18:02] LABS: GLUCOSE,POINT OF CARE 174 MG/DL (70-110)
[2021-08-14 20:00] VITALS: BP 124/50
[2021-08-14 20:46] LABS: GLUCOSE,POINT OF CARE 173 MG/DL (70-110)
[2021-08-14] MEDS: QUEtiapine FUMARATE 25 MG TABLET NG SCH (21:14)
[2021-08-14] MEDS: ATORVASTATIN CALCIUM 20 MG TABLET PO SCH (21:14)
[2021-08-14] MEDS: OXYGEN THERAPY IH SCH (21:16)
[2021-08-14] MEDS ORDERED: HEPARIN SODIUM,PORCINE 5,000 UNITS/ML VIAL IVP PRN ×2 (21:30)
[2021-08-14] MEDS ORDERED: HEPARIN SODIUM,PORCINE 5,000 UNITS/ML VIAL IVP ONE (21:30)
[2021-08-14 21:46] LABS: GLUCOSE,POINT OF CARE 145 MG/DL (70-110)
[2021-08-14 21:51] LABS: BASOPHILS % (AUTO) 0.3 % (0.0-2.0); EOSINOPHILS % (AUTO) 0.1 % (1.0-6.0); HEMATOCRIT 25.1 % (36-46); HEMOGLOBIN 8.2 g/dL (12.0-16.0); LYMPHOCYTES # (AUTO) 0.3 K/uL (1.0-4.8); LYMPHOCYTES % (AUTO) 3.2 % (22.0-44.0); MEAN CORPUSCULAR HEMOGLOBIN 31.5 pg (26.0-34.0); MEAN CORPUSCULAR HGB CONC 32.7 G/dL (31.0-37.0); MEAN CORPUSCULAR VOLUME 96 fL (80-100); MONOCYTES # (AUTO) 0.7 K/uL (0.1-1.0); MONOCYTES % (AUTO) 7.4 % (2.0-9.0); PLATELET COUNT (AUTO) 90 K/uL (150-450); RED BLOOD CELL COUNT(AUTO) 2.61 MIL/uL (4.00-5.20); RED CELL DISTRIBUTION WIDTH 20.9 % (11.5-14.5)
[2021-08-14 22:03] LABS: PROTHROMBIN TIME 10.8 SEC (9.4-11.6)
[2021-08-14] MEDS: HEPARIN SODIUM 25000 UNITS/D5W 250 ML IV PRN (23:35)
[2021-08-15] VITALS: BP 133/55
[2021-08-15] MEDS: METOCLOPRAMIDE HCL 5 MG/ML 2 ML VIAL IVP SCH ×5 (00:49→23:32)
[2021-08-15 04:00] VITALS: BP 153/78
[2021-08-15 05:34] LABS: BASOPHILS % (AUTO) 0.2 % (0.0-2.0); EOSINOPHILS % (AUTO) 1.1 % (1.0-6.0); HEMATOCRIT 23.3 % (36-46); HEMOGLOBIN 7.9 g/dL (12.0-16.0); LYMPHOCYTES # (AUTO) 0.4 K/uL (1.0-4.8); LYMPHOCYTES % (AUTO) 4.6 % (22.0-44.0); MEAN CORPUSCULAR HEMOGLOBIN 32.3 pg (26.0-34.0); MEAN CORPUSCULAR HGB CONC 33.8 G/dL (31.0-37.0); MEAN CORPUSCULAR VOLUME 96 fL (80-100); MONOCYTES % (AUTO) 10.5 % (2.0-9.0); NEUTROPHILS # (AUTO) 7.6 K/uL (1.8-7.7); NEUTROPHILS % (AUTO) 83.6 % (40.0-70.0); PLATELET COUNT (AUTO) 90 K/uL (150-450); RED BLOOD CELL COUNT(AUTO) 2.43 MIL/uL (4.00-5.20); RED CELL DISTRIBUTION WIDTH 20.5 % (11.5-14.5)
[2021-08-15] MEDS: PROPOFOL 1000 MG/ISO-OSM 100 ML IV PRN ×3 (05:34→23:32)
[2021-08-15] MEDS: CefTRIAXone SODIUM 2 GM in DEXTROSE 5%-WATER 50 ML IV SCH (07:49)
[2021-08-15] MEDS: OXYGEN THERAPY IH SCH ×2 (07:50→21:23)
[2021-08-15 08:00] VITALS: BP 133/83
[2021-08-15] MEDS: DOXYCYCLINE HYCLATE 100 MG in DEXTROSE 5%-WATER 100 ML IV SCH ×2 (08:08→21:23)
[2021-08-15] MEDS: PANTOPRAZOLE SODIUM 40 MG/VIAL IVP SCH ×2 (08:09→21:23)
[2021-08-15] MEDS: FUROSEMIDE 40 MG/4 ML VIAL IVP SCH (08:09)
[2021-08-15] MEDS: METOPROLOL TARTRATE 50 MG TABLET PO SCH ×2 (08:09→21:23)
[2021-08-15] MEDS: FentaNYL CIT 1000MCG/0.9% NACL 100 ML IV PRN ×2 (08:09→18:23)
[2021-08-15] MEDS: ETHYL ALCOHOL 62% ANTISEPTIC NASAL INHALANT 0.6 ML AMPUL NASAL SCH ×2 (08:10→21:23)
[2021-08-15] MEDS: DEXAMETHASONE SOD PHOS 4 MG/ML VIAL IVP SCH (08:10)
[2021-08-15] MEDS: ASPIRIN 81 MG DR TABLET PO SCH (08:14)
[2021-08-15] MEDS: AmLODIPine BESYLATE 5 MG TABLET PO SCH (08:14)
[2021-08-15] MEDS: DOCUSATE SODIUM 100 MG/10 ML LIQUID UDCUP NG SCH ×2 (08:14→21:23)
[2021-08-15 08:20] LABS: CALCIUM, TOTAL 8.6 mg/dL (8.8-10.5); CREATININE 1.69 mg/dL (0.60-1.30); POTASSIUM 4.4 mmol/L (3.5-5.1)
[2021-08-15 08:26] LABS: GLUCOSE,POINT OF CARE 127 MG/DL (70-110)
[2021-08-15] MEDS: INSULIN LISPRO 100 UNITS/ML SQ PRN ×2 (11:50→17:34)
[2021-08-15 12:00] VITALS: BP 108/49
[2021-08-15] MEDS ORDERED: SODIUM CHLORIDE 0.9% 250 ML IV ONE (14:15)
[2021-08-15 16:00] VITALS: BP 139/51
[2021-08-15 17:46] LABS: GLUCOSE,POINT OF CARE 142 MG/DL (70-110)
[2021-08-15 17:47] LABS: GLUCOSE,POINT OF CARE 179 MG/DL (70-110)
[2021-08-15 20:00] VITALS: BP 140/72
[2021-08-15] MEDS: ATORVASTATIN CALCIUM 20 MG TABLET PO SCH (21:24)
[2021-08-15] MEDS: QUEtiapine FUMARATE 25 MG TABLET NG SCH (21:24)
[2021-08-16] VITALS: BP 129/59
[2021-08-16 01:31] LABS: GLUCOSE,POINT OF CARE 119 MG/DL (70-110)
[2021-08-16 04:00] VITALS: BP 103/58
[2021-08-16] MEDS: FentaNYL CIT 1000MCG/0.9% NACL 100 ML IV PRN (04:41)
[2021-08-16] MEDS: METOCLOPRAMIDE HCL 5 MG/ML 2 ML VIAL IVP SCH ×2 (04:41→23:39)
[2021-08-16 05:29] LABS: CALCIUM, TOTAL 8.5 mg/dL (8.8-10.5); CREATININE 1.99 mg/dL (0.60-1.30); POTASSIUM 4.4 mmol/L (3.5-5.1)
[2021-08-16 06:27] LABS: GLUCOSE,POINT OF CARE 87 MG/DL (70-110)
[2021-08-16] MEDS: PROPOFOL 1000 MG/ISO-OSM 100 ML IV PRN (08:45)
[2021-08-16] MEDS: DOXYCYCLINE HYCLATE 100 MG in DEXTROSE 5%-WATER 100 ML IV SCH ×2 (08:46→22:23)
[2021-08-16] MEDS: CefTRIAXone SODIUM 2 GM in DEXTROSE 5%-WATER 50 ML IV SCH (08:46)
[2021-08-16] MEDS: ETHYL ALCOHOL 62% ANTISEPTIC NASAL INHALANT 0.6 ML AMPUL NASAL SCH ×2 (08:47→22:21)
[2021-08-16] MEDS: OXYGEN THERAPY IH SCH ×2 (08:47→20:00)
[2021-08-16] MEDS: DEXAMETHASONE SOD PHOS 4 MG/ML VIAL IVP SCH (08:47)
[2021-08-16] MEDS: PANTOPRAZOLE SODIUM 40 MG/VIAL IVP SCH ×2 (08:47→22:22)
[2021-08-16] MEDS: METOPROLOL TARTRATE 50 MG TABLET PO SCH ×2 (08:48→21:00)
[2021-08-16] MEDS: ASPIRIN 81 MG DR TABLET PO SCH (08:48)
[2021-08-16] MEDS: DOCUSATE SODIUM 100 MG/10 ML LIQUID UDCUP NG SCH ×2 (08:48→21:00)
[2021-08-16] MEDS: AmLODIPine BESYLATE 5 MG TABLET PO SCH (08:48)
[2021-08-16 10:23] LABS: PROTHROMBIN TIME 10.6 SEC (9.4-11.6)
[2021-08-16 11:46] LABS: GLUCOSE,POINT OF CARE 97 MG/DL (70-110)
[2021-08-16] MEDS ORDERED: MIDAZOLAM HCL 2 MG/2 ML VIAL IVP ONE (12:00)
[2021-08-16] MEDS ORDERED: PROPOFOL 1% 20 ML VIAL IVP ONE (12:00)
[2021-08-16] MEDS ORDERED: ROCURONIUM BROMIDE 10 MG/ML 5 ML VIAL IVP ONE (12:00)
[2021-08-16] MEDS ORDERED: EPHEDrine SULFATE 50 MG/ML VIAL IM ONE (12:00)
[2021-08-16] MEDS ORDERED: 0.9% SODIUM CHLORIDE 10 ML VIAL IVP ONE (12:00)
[2021-08-16] MEDS ORDERED: FentaNYL CITRATE PF 100 MCG/2 ML VIAL IVP ONE (12:00)
[2021-08-16] MEDS ORDERED: LIDOCAINE 1%/EPI 1:200,000/PF 30 ML VIAL ONE (12:25)
[2021-08-16] MEDS ORDERED: SODIUM CHLORIDE 0.9% 1,000 ML ONE (14:41)
[2021-08-16 20:00] VITALS: BP 170/107
[2021-08-16] MEDS: ATORVASTATIN CALCIUM 20 MG TABLET PO SCH (21:00)
[2021-08-16] MEDS: QUEtiapine FUMARATE 25 MG TABLET NG SCH (21:00)
[2021-08-16 23:51] LABS: GLUCOSE,POINT OF CARE 105 MG/DL (70-110)
[2021-08-17] VITALS: BP 112/64
[2021-08-17] MEDS: HEPARIN SODIUM 25000 UNITS/D5W 250 ML IV PRN (03:26)
[2021-08-17] MEDS: FentaNYL CIT 1000MCG/0.9% NACL 100 ML IV PRN ×2 (03:27→17:08)
[2021-08-17 04:00] VITALS: BP 112/60
[2021-08-17 05:08] LABS: APPEARANCE,URINE CLEAR (CLEAR); BILIRUBIN,URINE NEGATIVE (NEGATIVE); GLUCOSE, URINE (UA) NEGATIVE (NEGATIVE); KETONES,URINE NEGATIVE (NEGATIVE); LEUKOCYTE ESTERASE ,URINE LARGE (NEGATIVE); NITRATE,URINE NEGATIVE (NEGATIVE); OCCULT BLOOD,URINE LARGE (NEGATIVE); PH,URINE 5.5 (5.0-8.0); PROTEIN,URINE POS 1+ (NEGATIVE); UROBILINOGEN,URINE 0.2 mg/dL (<=1.0)
[2021-08-17 05:10] LABS: BACTERIA,URINE Moderate /HPF (None Seen); YEAST,URINE Few /HPF (None Seen)
[2021-08-17] MEDS: METOCLOPRAMIDE HCL 5 MG/ML 2 ML VIAL IVP SCH ×4 (05:55→18:41)
[2021-08-17] MEDS: PROPOFOL 1000 MG/ISO-OSM 100 ML IV PRN ×2 (05:57→18:42)
[2021-08-17 06:20] LABS: CALCIUM, TOTAL 8.6 mg/dL (8.8-10.5); CREATININE 2.22 mg/dL (0.60-1.30); PHOSPHORUS 6.5 mg/dL (2.5-4.9); POTASSIUM 4.7 mmol/L (3.5-5.1)
[2021-08-17] MEDS: DEXTROSE 50%-WATER 25 GM/50 ML SYRINGE IVP PRN (06:22)
[2021-08-17 07:06] LABS: GLUCOSE,POINT OF CARE 116 MG/DL (70-110)
[2021-08-17 07:06] LABS: GLUCOSE,POINT OF CARE 59 MG/DL (70-110)
[2021-08-17] MEDS: CefTRIAXone SODIUM 2 GM in DEXTROSE 5%-WATER 50 ML IV SCH (08:54)
[2021-08-17] MEDS: DOXYCYCLINE HYCLATE 100 MG in DEXTROSE 5%-WATER 100 ML IV SCH ×2 (09:13→21:24)
[2021-08-17] MEDS: DEXAMETHASONE SOD PHOS 4 MG/ML VIAL IVP SCH (09:14)
[2021-08-17] MEDS: PANTOPRAZOLE SODIUM 40 MG/VIAL IVP SCH ×2 (09:14→21:23)
[2021-08-17] MEDS: ETHYL ALCOHOL 62% ANTISEPTIC NASAL INHALANT 0.6 ML AMPUL NASAL SCH ×2 (09:15→21:23)
[2021-08-17] MEDS: OXYGEN THERAPY IH SCH ×2 (09:16→21:24)
[2021-08-17 11:56] LABS: GLUCOSE,POINT OF CARE 83 MG/DL (70-110)
[2021-08-17 12:00] VITALS: BP 90/37
[2021-08-17 17:33] VITALS: BP 147/70
[2021-08-17 20:00] VITALS: BP 103/42
[2021-08-17] MEDS: QUEtiapine FUMARATE 25 MG TABLET NG SCH (21:00)
[2021-08-17] MEDS: DOCUSATE SODIUM 100 MG/10 ML LIQUID UDCUP NG SCH (21:00)
[2021-08-17] MEDS: ASPIRIN 81 MG DR TABLET PO SCH (21:00)
[2021-08-17] MEDS: AmLODIPine BESYLATE 5 MG TABLET PO SCH (21:00)
[2021-08-17] MEDS: METOPROLOL TARTRATE 50 MG TABLET PO SCH ×3 (21:00→21:25)
[2021-08-17] MEDS: ATORVASTATIN CALCIUM 20 MG TABLET PO SCH ×2 (21:00→21:23)
[2021-08-17] MEDS ORDERED: SODIUM CHLORIDE 0.9% 250 ML IV ONE (21:17)
[2021-08-17 21:21] LABS: GLUCOSE,POINT OF CARE 108 MG/DL (70-110)
[2021-08-17 21:21] LABS: GLUCOSE,POINT OF CARE 115 MG/DL (70-110)
[2021-08-18] VITALS (16 sets, daily range): BP systolic 90–147; BP diastolic 37–103
[2021-08-18] MEDS: METOCLOPRAMIDE HCL 5 MG/ML 2 ML VIAL IVP SCH ×4 (00:35→17:56)
[2021-08-18 00:41] LABS: GLUCOSE,POINT OF CARE 85 MG/DL (70-110)
[2021-08-18] MEDS: DEXTROSE 50%-WATER 25 GM/50 ML SYRINGE IVP PRN (06:15)
[2021-08-18 06:22] LABS: GLUCOSE,POINT OF CARE 68 MG/DL (70-110)
[2021-08-18 06:33] LABS: CALCIUM, TOTAL 8.7 mg/dL (8.8-10.5); CREATININE 2.48 mg/dL (0.60-1.30); PHOSPHORUS 7.3 mg/dL (2.5-4.9); POTASSIUM 4.8 mmol/L (3.5-5.1)
[2021-08-18 06:36] LABS: GLUCOSE,POINT OF CARE 106 MG/DL (70-110)
[2021-08-18 07:03] LABS: BASOPHILS % (AUTO) 0.1 % (0.0-2.0); EOSINOPHILS % (AUTO) 0.1 % (1.0-6.0); LYMPHOCYTES # (AUTO) 0.4 K/uL (1.0-4.8); MEAN CORPUSCULAR HEMOGLOBIN 32.3 pg (26.0-34.0); MEAN CORPUSCULAR HGB CONC 33.2 G/dL (31.0-37.0); MEAN CORPUSCULAR VOLUME 97 fL (80-100); MONOCYTES # (AUTO) 0.7 K/uL (0.1-1.0); MONOCYTES % (AUTO) 6.9 % (2.0-9.0); NEUTROPHILS # (AUTO) 9.3 K/uL (1.8-7.7); PLATELET COUNT (AUTO) 118 K/uL (150-450); RED BLOOD CELL COUNT(AUTO) 2.09 MIL/uL (4.00-5.20); RED CELL DISTRIBUTION WIDTH 20.9 % (11.5-14.5)
[2021-08-18 07:10] LABS: HEMOGLOBIN 6.8 g/dL (12.0-16.0)
[2021-08-18 07:11] LABS: HEMATOCRIT 20.3 % (36-46); NEUTROPHILS % (AUTO) 88.9 % (40.0-70.0)
[2021-08-18 07:29] LABS: APPEARANCE,URINE TURBID (CLEAR); BILIRUBIN,URINE NEGATIVE (NEGATIVE); GLUCOSE, URINE (UA) NEGATIVE (NEGATIVE); KETONES,URINE NEGATIVE (NEGATIVE); LEUKOCYTE ESTERASE ,URINE LARGE (NEGATIVE); NITRATE,URINE NEGATIVE (NEGATIVE); OCCULT BLOOD,URINE LARGE (NEGATIVE); PROTEIN,URINE POS 1+ (NEGATIVE); UROBILINOGEN,URINE 0.2 mg/dL (<=1.0)
[2021-08-18 07:43] LABS: BACTERIA,URINE Many /HPF (None Seen); YEAST,URINE Many /HPF (None Seen)
[2021-08-18] MEDS: DOCUSATE SODIUM 100 MG/10 ML LIQUID UDCUP NG SCH ×2 (07:55→21:00)
[2021-08-18] MEDS: METOPROLOL TARTRATE 50 MG TABLET PO SCH ×2 (07:56→21:00)
[2021-08-18] MEDS: AmLODIPine BESYLATE 5 MG TABLET PO SCH (07:56)
[2021-08-18] MEDS: ASPIRIN 81 MG DR TABLET PO SCH (07:56)
[2021-08-18] MEDS: DEXAMETHASONE SOD PHOS 4 MG/ML VIAL IVP SCH (07:57)
[2021-08-18] MEDS: CefTRIAXone SODIUM 2 GM in DEXTROSE 5%-WATER 50 ML IV SCH (07:58)
[2021-08-18] MEDS: PANTOPRAZOLE SODIUM 40 MG/VIAL IVP SCH ×2 (07:58→20:29)
[2021-08-18] MEDS: DOXYCYCLINE HYCLATE 100 MG in DEXTROSE 5%-WATER 100 ML IV SCH (07:59)
[2021-08-18] MEDS: ETHYL ALCOHOL 62% ANTISEPTIC NASAL INHALANT 0.6 ML AMPUL NASAL SCH ×2 (07:59→20:29)
[2021-08-18] MEDS: OXYGEN THERAPY IH SCH ×2 (07:59→20:27)
[2021-08-18] MEDS: FUROSEMIDE 20 MG/2 ML VIAL IVP SCH ×2 (10:22→20:28)
[2021-08-18] MEDS ORDERED: FentaNYL CIT 1000MCG/0.9% NACL 100 ML IV PRN ×2 (11:45→12:00)
[2021-08-18] MEDS ORDERED: SODIUM CHLORIDE 0.9% 250 ML IV ONE ×2 (12:37→17:34)
[2021-08-18 12:52] LABS: GLUCOSE,POINT OF CARE 95 MG/DL (70-110)
[2021-08-18] MEDS ORDERED: CeFAZolin 1 GM/DEXTROSE 50 ML IV ONE (15:15)
[2021-08-18] MEDS: FentaNYL CIT 1000MCG/0.9% NACL 100 ML IV PRN (17:55)
[2021-08-18] MEDS: PROPOFOL 1000 MG/ISO-OSM 100 ML IV PRN (17:57)
[2021-08-18 20:08] LABS: BASOPHILS % (AUTO) 0.2 % (0.0-2.0); EOSINOPHILS % (AUTO) 0 % (1.0-6.0); HEMATOCRIT 24.9 % (36-46); HEMOGLOBIN 8.5 g/dL (12.0-16.0); LYMPHOCYTES # (AUTO) 0.2 K/uL (1.0-4.8); LYMPHOCYTES % (AUTO) 2.6 % (22.0-44.0); MEAN CORPUSCULAR HEMOGLOBIN 32.7 pg (26.0-34.0); MEAN CORPUSCULAR HGB CONC 34.3 G/dL (31.0-37.0); MEAN CORPUSCULAR VOLUME 96 fL (80-100); MONOCYTES # (AUTO) 0.3 K/uL (0.1-1.0); MONOCYTES % (AUTO) 3.5 % (2.0-9.0); NEUTROPHILS # (AUTO) 7.8 K/uL (1.8-7.7); PLATELET COUNT (AUTO) 101 K/uL (150-450); RED BLOOD CELL COUNT(AUTO) 2.61 MIL/uL (4.00-5.20)
[2021-08-18 20:09] LABS: NEUTROPHILS % (AUTO) 93.7 % (40.0-70.0)
[2021-08-18] MEDS: QUEtiapine FUMARATE 25 MG TABLET NG SCH ×2 (20:29→20:42)
[2021-08-18] MEDS: ATORVASTATIN CALCIUM 20 MG TABLET PO SCH ×2 (20:29→20:41)
[2021-08-18 21:36] LABS: GLUCOSE,POINT OF CARE 116 MG/DL (70-110)
[2021-08-19] VITALS: BP 140/90
[2021-08-19 00:51] LABS: GLUCOSE,POINT OF CARE 110 MG/DL (70-110)
[2021-08-19] MEDS: METOCLOPRAMIDE HCL 5 MG/ML 2 ML VIAL IVP SCH ×4 (02:49→18:10)
[2021-08-19 04:00] VITALS: BP 121/80
[2021-08-19 05:27] LABS: GLUCOSE,POINT OF CARE 73 MG/DL (70-110)
[2021-08-19 06:18] LABS: CALCIUM, TOTAL 8.8 mg/dL (8.8-10.5); CREATININE 2.73 mg/dL (0.60-1.30); PHOSPHORUS 7.8 mg/dL (2.5-4.9); POTASSIUM 4.8 mmol/L (3.5-5.1)
[2021-08-19] MEDS: OXYGEN THERAPY IH SCH ×2 (08:34→20:00)
[2021-08-19] MEDS ORDERED: DEXAMETHASONE SOD PHOS 4 MG/ML VIAL IVP SCH (09:00)
[2021-08-19] MEDS: METOPROLOL TARTRATE 50 MG TABLET PO SCH ×2 (09:00→23:14)
[2021-08-19] MEDS: ASPIRIN 81 MG DR TABLET PO SCH (09:00)
[2021-08-19] MEDS: AmLODIPine BESYLATE 5 MG TABLET PO SCH ×2 (09:00→09:03)
[2021-08-19] MEDS: DOCUSATE SODIUM 100 MG/10 ML LIQUID UDCUP NG SCH ×2 (09:00→23:10)
[2021-08-19] MEDS: FUROSEMIDE 20 MG/2 ML VIAL IVP SCH ×2 (09:16→23:08)
[2021-08-19] MEDS: PANTOPRAZOLE SODIUM 40 MG/VIAL IVP SCH ×2 (09:18→23:09)
[2021-08-19] MEDS: ETHYL ALCOHOL 62% ANTISEPTIC NASAL INHALANT 0.6 ML AMPUL NASAL SCH ×2 (09:19→23:16)
[2021-08-19] MEDS: PROPOFOL 1000 MG/ISO-OSM 100 ML IV PRN ×2 (11:30→20:41)
[2021-08-19 18:06] LABS: BASOPHILS % (AUTO) 0.3 % (0.0-2.0); EOSINOPHILS % (AUTO) 0.3 % (1.0-6.0); HEMATOCRIT 26.1 % (36-46); HEMOGLOBIN 8.8 g/dL (12.0-16.0); LYMPHOCYTES # (AUTO) 0.2 K/uL (1.0-4.8); LYMPHOCYTES % (AUTO) 1.7 % (22.0-44.0); MEAN CORPUSCULAR HEMOGLOBIN 32.2 pg (26.0-34.0); MEAN CORPUSCULAR HGB CONC 33.8 G/dL (31.0-37.0); MEAN CORPUSCULAR VOLUME 95 fL (80-100); MONOCYTES # (AUTO) 0.2 K/uL (0.1-1.0); MONOCYTES % (AUTO) 2.1 % (2.0-9.0); NEUTROPHILS # (AUTO) 10.6 K/uL (1.8-7.7); NEUTROPHILS % (AUTO) 95.6 % (40.0-70.0); PLATELET COUNT (AUTO) 112 K/uL (150-450); RED BLOOD CELL COUNT(AUTO) 2.74 MIL/uL (4.00-5.20); RED CELL DISTRIBUTION WIDTH 18.3 % (11.5-14.5)
[2021-08-19] MEDS: ALBUMIN HUMAN 25%-25GM/100ML 100 ML IV SCH (18:11)
[2021-08-19 18:41] LABS: GLUCOSE,POINT OF CARE 66 MG/DL (70-110)
[2021-08-19] MEDS: FentaNYL CIT 1000MCG/0.9% NACL 100 ML IV PRN (19:16)
[2021-08-19 20:00] VITALS: BP 136/56
[2021-08-19 22:16] LABS: GLUCOSE,POINT OF CARE 88 MG/DL (70-110)
[2021-08-19] MEDS: CITRIC ACID/SODIUM CITRATE 30 ML SOLUTION UDCUP NG SCH (23:10)
[2021-08-19] MEDS: QUEtiapine FUMARATE 25 MG TABLET NG SCH (23:11)
[2021-08-19] MEDS: ATORVASTATIN CALCIUM 20 MG TABLET PO SCH (23:14)
[2021-08-20] MEDS: METOCLOPRAMIDE HCL 5 MG/ML 2 ML VIAL IVP SCH ×3 (02:53→18:09)
[2021-08-20] MEDS: ALBUMIN HUMAN 25%-25GM/100ML 100 ML IV SCH ×2 (02:55→16:30)
[2021-08-20 06:21] LABS: CALCIUM, TOTAL 9.1 mg/dL (8.8-10.5); CREATININE 2.97 mg/dL (0.60-1.30); PHOSPHORUS 8.4 mg/dL (2.5-4.9); POTASSIUM 4.7 mmol/L (3.5-5.1)
[2021-08-20] MEDS: OXYGEN THERAPY IH SCH ×2 (07:54→19:32)
[2021-08-20 08:00] VITALS: BP 105/65
[2021-08-20 09:13] LABS: BASOPHILS % (AUTO) 0.2 % (0.0-2.0); EOSINOPHILS % (AUTO) 0.4 % (1.0-6.0); HEMATOCRIT 21.7 % (36-46); HEMOGLOBIN 7.3 g/dL (12.0-16.0); LYMPHOCYTES # (AUTO) 0.3 K/uL (1.0-4.8); LYMPHOCYTES % (AUTO) 3.9 % (22.0-44.0); MEAN CORPUSCULAR HEMOGLOBIN 32.5 pg (26.0-34.0); MEAN CORPUSCULAR HGB CONC 33.8 G/dL (31.0-37.0); MEAN CORPUSCULAR VOLUME 96 fL (80-100); MONOCYTES # (AUTO) 0.4 K/uL (0.1-1.0); MONOCYTES % (AUTO) 5.9 % (2.0-9.0); NEUTROPHILS # (AUTO) 6.1 K/uL (1.8-7.7); RED BLOOD CELL COUNT(AUTO) 2.26 MIL/uL (4.00-5.20); RED CELL DISTRIBUTION WIDTH 18.8 % (11.5-14.5)
[2021-08-20 09:16] LABS: NEUTROPHILS % (AUTO) 89.6 % (40.0-70.0); PLATELET COUNT (AUTO) 102 K/uL (150-450)
[2021-08-20] MEDS ORDERED: ALBUMIN HUMAN 25%-12.5GM/50ML 50 ML IV ONE (10:15)
[2021-08-20] MEDS: PANTOPRAZOLE SODIUM 40 MG/VIAL IVP SCH ×2 (10:36→21:23)
[2021-08-20] MEDS: CITRIC ACID/SODIUM CITRATE 30 ML SOLUTION UDCUP NG SCH ×2 (10:36→21:23)
[2021-08-20] MEDS: ETHYL ALCOHOL 62% ANTISEPTIC NASAL INHALANT 0.6 ML AMPUL NASAL SCH ×2 (10:36→21:23)
[2021-08-20] MEDS: DOCUSATE SODIUM 100 MG/10 ML LIQUID UDCUP NG SCH ×2 (10:36→21:23)
[2021-08-20] MEDS: ASPIRIN 81 MG DR TABLET PO SCH (10:37)
[2021-08-20] MEDS: AmLODIPine BESYLATE 5 MG TABLET PO SCH (10:37)
[2021-08-20] MEDS: METOPROLOL TARTRATE 50 MG TABLET PO SCH ×2 (10:37→21:24)
[2021-08-20] MEDS: FUROSEMIDE 20 MG/2 ML VIAL IVP SCH ×2 (11:00→21:23)
[2021-08-20 11:56] LABS: GLUCOSE,POINT OF CARE 77 MG/DL (70-110)
[2021-08-20 12:16] VITALS: BP 117/64
[2021-08-20 12:21] LABS: GLUCOSE,POINT OF CARE 80 MG/DL (70-110)
[2021-08-20 17:54] VITALS: BP 114/50
[2021-08-20 17:57] LABS: GLUCOSE,POINT OF CARE 110 MG/DL (70-110)
[2021-08-20] MEDS: HYDROCODONE/ACETAMINOPHEN 5-325 MG TABLET PO PRN (18:10)
[2021-08-20 20:23] VITALS: BP 135/74
[2021-08-20] MEDS: ATORVASTATIN CALCIUM 20 MG TABLET PO SCH (21:23)
[2021-08-20] MEDS: QUEtiapine FUMARATE 25 MG TABLET NG SCH (21:24)
[2021-08-20] MEDS: ALBUMIN HUMAN 25%-12.5GM/50ML 50 ML IV SCH (21:31)
[2021-08-21 00:35] VITALS: BP 105/56
[2021-08-21] MEDS: METOCLOPRAMIDE HCL 5 MG/ML 2 ML VIAL IVP SCH ×3 (01:40→12:11)
[2021-08-21 04:50] VITALS: BP 118/62
[2021-08-21] MEDS: INSULIN LISPRO 100 UNITS/ML SQ PRN ×3 (05:42→18:14)
[2021-08-21 07:06] LABS: BASOPHILS % (AUTO) 0.4 % (0.0-2.0); EOSINOPHILS % (AUTO) 0.2 % (1.0-6.0); HEMATOCRIT 23.4 % (36-46); LYMPHOCYTES # (AUTO) 0.3 K/uL (1.0-4.8); LYMPHOCYTES % (AUTO) 1.8 % (22.0-44.0); MEAN CORPUSCULAR HEMOGLOBIN 32.8 pg (26.0-34.0); MEAN CORPUSCULAR HGB CONC 34.1 G/dL (31.0-37.0); MEAN CORPUSCULAR VOLUME 96 fL (80-100); MONOCYTES # (AUTO) 0.4 K/uL (0.1-1.0); NEUTROPHILS # (AUTO) 13.9 K/uL (1.8-7.7); PLATELET COUNT (AUTO) 85 K/uL (150-450); RED BLOOD CELL COUNT(AUTO) 2.44 MIL/uL (4.00-5.20); RED CELL DISTRIBUTION WIDTH 19.1 % (11.5-14.5)
[2021-08-21 07:14] LABS: NEUTROPHILS % (AUTO) 94.6 % (40.0-70.0)
[2021-08-21 07:20] LABS: CALCIUM, TOTAL 9.3 mg/dL (8.8-10.5); CREATININE 3.28 mg/dL (0.60-1.30); PHOSPHORUS 8.7 mg/dL (2.5-4.9); POTASSIUM 4.7 mmol/L (3.5-5.1)
[2021-08-21 07:44] VITALS: BP 133/66
[2021-08-21] MEDS: OXYGEN THERAPY IH SCH (08:29)
[2021-08-21] MEDS: ALBUMIN HUMAN 25%-12.5GM/50ML 50 ML IV SCH (08:55)
[2021-08-21] MEDS: PANTOPRAZOLE SODIUM 40 MG/VIAL IVP SCH (09:25)
[2021-08-21] MEDS: FUROSEMIDE 20 MG/2 ML VIAL IVP SCH (09:27)
[2021-08-21] MEDS: METOPROLOL TARTRATE 50 MG TABLET PO SCH (09:28)
[2021-08-21] MEDS: DOCUSATE SODIUM 100 MG/10 ML LIQUID UDCUP NG SCH (09:28)
[2021-08-21] MEDS: ETHYL ALCOHOL 62% ANTISEPTIC NASAL INHALANT 0.6 ML AMPUL NASAL SCH (09:28)
[2021-08-21] MEDS: CITRIC ACID/SODIUM CITRATE 30 ML SOLUTION UDCUP NG SCH (09:28)
[2021-08-21] MEDS: AmLODIPine BESYLATE 5 MG TABLET PO SCH (09:29)
[2021-08-21] MEDS: ASPIRIN 81 MG DR TABLET PO SCH (09:29)
[2021-08-21 12:23] VITALS: BP 112/55
[2021-08-21 14:05] LABS: ABG BASE EXCESS -14.3 mmol/L (-2.0-3.0); ABG CARBOXYHEMOGLOBIN 1.3 % (0.0-1.5); ABG HCO3 13.9 mmol/L (22.0-26.0); ABG METHEMOGLOBIN 0.3 % (0.0-1.5); ABG OXYGEN CONTENT 12.1 mL/dL (15.0-23.0); ABG OXYGEN SATURATION 92.1 % (95.0-98.0); ABG OXYHEMOGLOBIN 90.6 % (94.0-100.0); ABG PCO2 35 mmHg (35-45); ABG PH 7.212 (7.35-7.450); ABG TOTAL HEMOGLOBIN 9.4 G/dL (12.0-18.0); PO2, ARTERIAL BG 75.6 mmHg (71.0-79.0); SOURCE, BLOOD GAS ARTERIAL; TEMPERATURE, FAHRENHEIT, BG 98.6 FAHREN (96.0-98.6)
[2021-08-21 14:06] LABS: ABG A-A DIFF O2 169.9 mmHg (10-20.0); O2 DEVICE,BLOOD GAS VENTILATOR (ROOM AIR); SITE, BLOOD GAS LFT RADIAL; VT, ABG 400 ml
[2021-08-21 14:07] LABS: PEEP,BG 5 cm H2O; SPONTANEOUS VT, BG 399 ml
[2021-08-21 19:16] LABS: GLUCOMETER DEV NAME(LOC) 5S.1; GLUCOSE,POINT OF CARE 124 MG/DL (70-110)
[2021-08-21 19:16] LABS: GLUCOMETER DEV NAME(LOC) 5S.1; GLUCOSE,POINT OF CARE 144 MG/DL (70-110)
[2021-08-21 19:17] LABS: GLUCOMETER DEV NAME(LOC) 5S.2B; GLUCOSE,POINT OF CARE 149 MG/DL (70-110)
[2021-08-21 19:56] LABS: GLUCOMETER DEV NAME(LOC) 5N.1C; GLUCOSE,POINT OF CARE 157 MG/DL (70-110)
[2021-08-21 20:01] LABS: GLUCOMETER DEV NAME(LOC) 5N.1C; GLUCOSE,POINT OF CARE 157 MG/DL (70-110)
[2021-08-21] MEDS ORDERED: TICAGRELOR 90 MG TABLET PO SCH (21:00)
== END 2021-08-21 19:57 | DRG 4 ==
LOC: EMS 08:34 → ICU 12:07 → 5N 08-20 18:00
PROVIDERS: ADMIT Internal Medicine; ATTEND Internal Medicine
PROC: 0BH17EZ Insertion of Endotracheal Airway into Trachea, Via Natural or Artificial Opening (ICD-10-PCS; 2021-07-23)
PROC: 5A09357 Assistance with Respiratory Ventilation, Less than 24 Consecutive Hours, Continuous Positive Airway Pressure (ICD-10-PCS; 2021-07-23)
PROC: 5A0935A Assistance with Respiratory Ventilation, Less than 24 Consecutive Hours, High Flow/Velocity Cannula (ICD-10-PCS; 2021-07-23)
PROC: 5A1945Z Respiratory Ventilation, 24-96 Consecutive Hours (ICD-10-PCS; 2021-07-23)
PROC: 0BH17EZ Insertion of Endotracheal Airway into Trachea, Via Natural or Artificial Opening (ICD-10-PCS; 2021-07-23)
PROC: XW033E5 Introduction of Remdesivir Anti-infective into Peripheral Vein, Percutaneous Approach, New Technology Group 5 (ICD-10-PCS; 2021-07-23)
PROC: 5A09357 Assistance with Respiratory Ventilation, Less than 24 Consecutive Hours, Continuous Positive Airway Pressure (ICD-10-PCS; 2021-07-25)
PROC: 5A1955Z Respiratory Ventilation, Greater than 96 Consecutive Hours (ICD-10-PCS; principal; 2021-07-26)
PROC: 30233N1 Transfusion of Nonautologous Red Blood Cells into Peripheral Vein, Percutaneous Approach (ICD-10-PCS; 2021-07-31)
PROC: 0B110F4 Bypass Trachea to Cutaneous with Tracheostomy Device, Open Approach (ICD-10-PCS; 2021-08-16)
PROC: 0BJ08ZZ Inspection of Tracheobronchial Tree, Via Natural or Artificial Opening Endoscopic (ICD-10-PCS; 2021-08-16)
PROC: 5A1935Z Respiratory Ventilation, Less than 24 Consecutive Hours (ICD-10-PCS; 2021-08-18)
PROC: 5A1935Z Respiratory Ventilation, Less than 24 Consecutive Hours (ICD-10-PCS; 2021-08-19)
PROC: 5A1945Z Respiratory Ventilation, 24-96 Consecutive Hours (ICD-10-PCS; 2021-08-20)
DX: A41.89 Other specified sepsis (principal); U07.1 COVID-19; J12.82 Pneumonia due to coronavirus disease 2019; N17.0 Acute kidney failure with tubular necrosis; J96.21 Acute and chronic respiratory failure with hypoxia; I13.0 Hypertensive heart and chronic kidney disease with heart failure and stage 1 through stage 4 chronic kidney disease, or unspecified chronic kidney disease; J44.0 Chronic obstructive pulmonary disease with (acute) lower respiratory infection; N17.9 Acute kidney failure, unspecified; E87.2 Acidosis; Z99.11 Dependence on respirator [ventilator] status; Z66 Do not resuscitate; E78.5 Hyperlipidemia, unspecified; I25.10 Atherosclerotic heart disease of native coronary artery without angina pectoris; I27.20 Pulmonary hypertension, unspecified; N18.9 Chronic kidney disease, unspecified; I50.9 Heart failure, unspecified; D64.9 Anemia, unspecified; S30.1XXA Contusion of abdominal wall, initial encounter; R13.10 Dysphagia, unspecified; W18.39XA Other fall on same level, initial encounter; Z85.3 Personal history of malignant neoplasm of breast; Z90.12 Acquired absence of left breast and nipple; Z95.5 Presence of coronary angioplasty implant and graft; Z79.899 Other long term (current) drug therapy; Z79.02 Long term (current) use of antithrombotics/antiplatelets; Y93.89 Activity, other specified; Y92.89 Other specified places as the place of occurrence of the external cause; Y99.8 Other external cause status
CPT/HCPCS: 36600; 71045; 74177; 76770; 80048; 80053; 81001; 81003; 82550; 82570; 82728; 82805; 82962; 83605; 83615; 83735; 83880; 84100; 84132; 84156; 84300; 84484; 84540; 85014; 85018; 85025; 85379; 85576; 85610; 85651; 85730; 86140; 86850; 86900; 86901; 86923; 87040; 87070; 87081; 87086; 87804; 93005; 93970; 94002; 94003; 99285; C9113; G0378; J0171; J0360; J0461; J0696; J1100; J1644; J1940; J2250; J2405; J2704; J2765; J3010; J3480; J3490; J7030; J7040; J7050; J7060; J7120; P9016; P9046; P9047; Q9967; 36415-L1; 36415-TC; U0003; Z7610